=== PATIENT | female | born 1980 | race Caucasian/White ===

== ENCOUNTER → 2016-11-19 | Outpatient (CLI) | payer OTHER ==
[~2016-11-19] MED LIST: ACET500C12 PO; CETI10TA84 PO; MCRK20 PO; METO-551 PO; ONDA4TAB7 SL
--- NOTE | 2016-11-19 12:33 | DIAGNOSTIC IMAGING REPORT ---
HYSTEROSALPINGOGRAM HISTORY: Infertility. FLUOROSCOPY TIME: 0.7 minutes. TECHNIQUE: The cervix was cannulated by the electronic train control technician-packaging materials inspector and water soluble contrast was instilled into the uterus under fluoroscopic guidance. Multiple spot images were obtained. FINDINGS: The uterine cavity is normal in size, shape, and position. The fallopian tubes are patent and there is free peritoneal spill on the right with probable spill on the left.. IMPRESSION: Normal hysterosalpingogram. Electronically signed by: Vicente Gilmore M.D. 11/19/2016 12:31 PM Dictated Date/Time: 11/19/2016 12:31 PM
== END | disposition home or self-care (01) ==
LOC: C.RAD 11:04
PROVIDERS: ATTEND Obstetrics & Gynecology
DX: N97.0 Female infertility associated with anovulation (principal)

== ENCOUNTER 2019-12-30 09:01 | Observation (INO) ==
--- OUTSIDE RECORDS SUMMARY | 2019-12-30 09:03 | External Medical Summary | Continuity of Care Document ---
:1980 Author Name Chaz Blackwell, Provider Address Unavailable Unavailable , Care Team Providers Name Role Phone Unavailable Unavailable Unavailable PCP, NO Unavailable Unavailable Problems Active medical history not documented Allergies and Adverse Reactions Allergy history not documented Medications Medications not documented Procedures Procedures not documented Immunizations Immunizations not documented Plan of Treatment Planned Observations Planned Goals not documented Results No Known Results Results not documented
[2019-12-30] MEDS ORDERED: SODIUM CHLORIDE 0.9% 1000ML 1,000 ML IV ONE (09:24)
[2019-12-30] MEDS ORDERED: ACETAMINOPHEN 1,000 MG/100 ML VIAL IV STA (09:24)
[2019-12-30] MEDS ORDERED: ONDANSETRON INJ 2 MG/ML 2 ML VIAL IV STA (09:24)
--- NOTE | 2019-12-30 09:39 | Emergency Department Note ---
History of Present Illness General Chief Complaint: Kidney Stone Stated Complaint: KIDNEY STONES Source: patient Mode of arrival: ambulatory Limitations: no limitations History of Present Illness Provider Complaint: abdominal pain and flank pain Onset (ago): 1 day(s) Pain Consistency: intermittent Location: RLQ Radiation: R flank Migration to: no migration Severity: moderate Maximum Pain Intensity: 8 Current Pain Intensity: 6 Quality: + sharp Relieved By: + movement Exacerbated By: + nothing Context: + history of similar episodes Associated Symptoms: + nausea and + vomiting; no diarrhea, no fever, no chills, no constipation, no dysuria and no hematuria Treatments prior to arrival: NSAIDs This 39-year-old female patient presents the emergency department today, ambulatory, complaining of right lower quadrant pain radiating to the right flank. Pain began overnight while sleeping. The patient does have history of similar symptoms associated with kidney stones. She states in June, she had a 5 mm stone on the right that she does not believe ever passed. The patient did previously follow with Dr. Alegre, landscape management technician with [facility], but insurance recently changed and she is unable to see [facility] providers any longer. The patient has previously needed all kidney stones surgically removed. The patient describes sharp intermittent pain in the right pelvis. She took 1000 mg of ibuprofen this morning at 7 AM without relief. Pain is positional in nature, but improves with ambulation and some movement and worsens with lying still. Symptoms have been associated with nausea and vomiting. There are no urinary symptoms including hematuria, urinary frequency, urinary hesitancy. No fever, chest pain, dyspnea, or chills. This pain is somewhat different than normal, but it is similar in nature. Related Data Date of Last Menstrual Period: 12/16/19 Home Medications Home Medications Medication Instructions Recorded Confirmed Type acetazolamide 500 mg PO BID 04/29/18 12/30/19 History cetirizine [Zyrtec] 10 mg PO QAM 04/29/18 12/30/19 History metoprolol tartrate [Lopressor] 50 mg PO BID 04/29/18 12/30/19 History potassium chloride [Klor-Con M20] 60 meq PO AMPM 04/29/18 12/30/19 History naproxen 250 mg PO TID #21 tab 07/14/19 12/30/19 Rx tamsulosin [Flomax] 0.4 mg PO DAILY PRN 07/15/19 12/30/19 History ibuprofen 200 mg PO Q6H PRN 12/30/19 12/30/19 History Allergies Allergy/AdvReac Type Severity Reaction Status Date / Time bee venom protein (honey bee) Allergy Severe ANAPHYLAXIS Verified 12/30/19 09:33 A CHILD Past Med/Surg History Medical History Hypokalemia Kidney stone (Chronic) Pseudotumor (Chronic) Surgical History H/O section (Resolved) History of cholecystectomy Social History Preferred Language: Montserrat[place] Feels Safe at Home: Yes Smoking Status: Never smoker Review of Systems A total of 10 systems reviewed and were otherwise negative Physical Exam Vital Signs: Vital Signs - 24 hr 12/30/19 09:04 12/30/19 09:37 12/30/19 10:38 Temperature 36.7 C Temperature Source Oral Pulse Rate 51 L Pulse Rate [Right Finger] 48 L Pulse Rhythm Regular Pulse Strength Normal Respiratory Rate 20 18 Respiratory Effort / Characteristics Non-Labored Sponta neous Non-Labored Sponta neous Respiratory Depth Normal Normal Respiratory Patter n Regular Regular Blood Pressure 153/98 H Blood Pressure [Ri ght Arm] 145/90 H Blood Pressure Vannessa n 116 Blood Pressure Vannessa n [Right Arm] 108 Blood Pressure Pos ition [Right Arm] Lying Pulse Oximetry 94 98 95 Oxygen Delivery Me thod Room Air Room Air Room Air Sepsis Recent Feve r Within 48 Hours No Sepsis Action Take n by Nursing No Action Required Physical Exam: VITALS: Vitals are noted on the nurse's note and reviewed by myself. Patient is hypertensive. No tachycardia or fever. O2 saturation 98%. GENERAL: This is a 39-year-old obese white female, in no acute distress, nond iaphoretic, well-developed well-nourished. SKIN: The skin was without rashes, erythema, edema, or bruising. There is no tenting of the skin. Capillary refill less than 2 seconds. HEAD: Normocephalic atraumatic. EYES: Conjunctivae without injection, sclerae without icterus. NECK: Supple without nuchal rigidity. No lymphadenopathy. No JVD. HEART: Regular rate and rhythm without murmurs gallops or rubs. LUNGS: Clear to auscultation bilaterally without wheezes, rales or rhonchi. No retractions or accessory muscle use. ABDOMEN: Positive bowel sounds x 4. Normal tympanic percussion. Soft, no reproducible tenderness to palpation, without masses or organomegaly. Ratliff sign negative. No guarding or rebound tenderness. No CVA tenderness bilaterally. MUSCULOSKELETAL: No muscle atrophy, erythema, or edema noted. Full range of motion without joint tenderness in all extremities. No tenderness to palpation. Normal gait. Strength 5/5 throughout. NEURO: Patient was alert and oriented to person place and time. No focal neurological deficits. Course Course The patient was seen and evaluated as above. An order was placed for continuous cardiac monitoring. The monitor shows a sinus bradycardia at a rate of 51 bpm. I discussed the case with my attending physician. IV access obtained, labs drawn. Patient medicated with IV fluids, Zofran, and acetaminophen. Imaging performed and reviewed by myself and radiologist as noted. Labs reviewed by myself. I discussed the findings with the patient at bedside. She was reassessed and notes ongoing pain and vomiting. She was medicated with Phenergan and morphine. I discussed the case with Kezia THOMPSON with [facility] neurology. She advised she will speak with Dr. Aldrich to see if the patient may be added onto the surgical schedule today. She will contact me back. Patient was reassessed and is noting improvement in her vomiting and pain. I then discussed the case with DONNA Patterson. She did speak with Dr. Aldrich who recommends either admission to medicine with urology consult or discharge home with symptomatic control and urology follow-up early next week. I discussed these options with patient at bedside. She is starting to feel somewhat better, but does not feel that she will be able to manage her symptoms at home. I discussed case with the customer logistics manager. The patient was reassessed. She is complaining of increased nausea. Patient medicated with repeat dose of IV Phenergan. I discussed the case with Dr. Waldrop, [facility] hospitalist. He did agree to see and evaluate the patient. Please see hospitalist dictation regarding ongoing management care of this patient. Administered Medications Discontinued Medications Sodium Chloride (Nss 1000ml) 1,000 mls @ 999 mls/hr IV .Q1H1M ONE Stop: 12/30/19 10:24 Last Infusion: 12/30/19 11:53 Dose: 0 mls/hr Documented by: [id number] Admin: 12/30/19 09:42 Dose: 999 mls/hr Documented by: [id number] Acetaminophen (Ofirmev) 1,000 mg in 100 mls @ 400 mls/hr IV NOW STA Stop: 12/30/19 09:38 Last Infusion: 12/30/19 10:24 Dose: 0 mls/hr Documented by: [id number] Admin: 12/30/19 09:43 Dose: 400 mls/hr Documented by: [id number] Promethazine HCl (Phenergan) 12.5 mg in 50.5 mls @ 202 mls/hr IV NOW STA Stop: 12/30/19 10:39 Last Infusion: 12/30/19 10:49 Dose: 0 mls/hr Documented by: [id number] Admin: 12/30/19 10:30 Dose: 202 mls/hr Documented by: [id number] Promethazine HCl (Phenergan) 12.5 mg in 50.5 mls @ 202 mls/hr IV NOW STA Stop: 12/30/19 12:01 Last Admin: 12/30/19 11:53 Dose: 202 mls/hr Documented by: [id number] Morphine Sulfate (Morphine Sulfate) 4 mg IV NOW STA Stop: 12/30/19 10:26 Last Admin: 12/30/19 10:30 Dose: 4 mg Documented by: [id number] Ondansetron HCl (Zofran) 4 mg IV NOW STA Stop: 12/30/19 09:25 Last Admin: 12/30/19 09:42 Dose: 4 mg Documented by: [id number] Medical Decision Making Differential Diagnosis + peptic ulcer disease, + biliary pathology, + UTI, + obstruction, + mesenteric ischemia, + aortic pathology, + infections, + inflammatory bowel disease, + renal colic, + ectopic (female), + ovarian torsion (female), + tubo- ovarian abscesses (female), + pelvic inflammatory disease (female), + abdominal pain, + appendicitis, + calculus of kidney, + constipation, + diverticulitis, + endometriosis, + gastroenteritis, + pancreatitis and + small bowel obstruction Medical Records Attestation: I reviewed the patient's medical records. Home Medications Current Medication List: was personally reviewed by me Laboratory Data Attestation: I reviewed the patient's lab results. Mild leukocytosis of 11,000. No anemia or thrombocytopenia. Renal, hepatic function electrolytes without significant abnormality. Urinalysis positive for blood, but no clear evidence of infection. Urine test negative. Result diagrams: 12/30/19 09:40 12/30/19 09:28 Lab Results 12/30/19 12/30/19 12/30/19 Range/Units 09:28 09:40 10:35 WBC 11.95 H (4.8-10.8) K/uL RBC 4.83 (4.2-5.4) M/uL Hgb 15.3 (12.0-16.0) g/dL Hct 45.1 (37-47) % MCV 93.4 (80-100) fL MCH 31.7 (25-34) pg MCHC 33.9 (32-36) g/dL RDW Std Deviation 43.1 (36.4-46.3) fL RDW Coeff of [place] 12.6 (11.5-14.5) % Plt Count 263 (130-400) K/uL MPV 9.8 (7.4-10.4) fL Immature Gran % (Auto) 0.8 % Neut % (Auto) 76.7 % Lymph % (Auto) 13.8 % [place] % (Auto) 7.4 % Eos % (Auto) 1.0 % Baso % (Auto) 0.3 % Immature Gran # (Auto) 0.09 H (0.00-0.02) K/uL Neut # (Auto) 9.17 H (1.4-6.5) K/uL Lymph # (Auto) 1.65 (1.2-3.4) K/uL [place] # (Auto) 0.89 H (0.11-0.59) K/uL Eos # (Auto) 0.12 (0-0.5) K/uL Baso # (Auto) 0.03 (0-0.2) K/uL Sodium 143 (136-145) mmol/L Potassium 3.7 (3.5-5.1) mmol/L Chloride 115 H (98-107) mmol/L Carbon Dioxide 20 L (21-32) mmol/L Anion Gap 8.0 (3-11) BUN 14 (7-18) mg/dl Creatinine 0.80 (0.6-1.2) mg/dl Est Cr Clr Drug Dosing 109.3 ml/min Est GFR ( Amer) 106.9 Est GFR (Non-Af Amer) 92.2 BUN/Creatinine Ratio 17.5 (10-20) Glucose 117 H (70-99) mg/dl Calcium 8.4 L (8.5-10.1) mg/dl Total Bilirubin 0.5 (0.2-1) mg/dl AST 15 (15-37) U/L ALT 23 (12-78) U/L Alkaline Phosphatase 102 (45-117) U/L Total Protein 7.5 (6.4-8.2) gm/dl Albumin 3.7 (3.4-5.0) gm/dl Globulin 3.8 (2.5-4.0) gm/dl Albumin/Globulin Ratio 1.0 (0.9-2) Lipase 205 (73-393) U/L Urine Color Yellow Urine Appearance Turbid A (Clear) Urine pH 8.5 H (4.5-7.5) Ur Specific [place] 1.020 (1.000-1.030) Urine Protein Negative (Negative) Urine Glucose (UA) Negative (Negative) Urine Ketones Negative (Negative) Urine Blood 2+ H (Negative) Urine Nitrite Negative (Negative) Urine Bilirubin Negative (Negative) Urine Urobilinogen Negative (Negative) Ur Leukocyte Esterase Negative (Negative) Urine WBC (Auto) 1-5 (0-5) /hpf Urine RBC (Auto) >30 H (0-4) /hpf U Hyaline Cast (Auto) 5-10 H (0-5) /lpf U Epithel Cells (Auto) >30 H (0-5) /lpf Urine Bacteria (Auto) Negative (Negative) POC Ur Test (NEG) 12/30/19 Range/Units Unknown WBC (4.8-10.8) K/uL RBC (4.2-5.4) M/uL Hgb (12.0-16.0) g/dL Hct (37-47) % MCV (80-100) fL MCH (25-34) pg MCHC (32-36) g/dL RDW Std Deviation (36.4-46.3) fL RDW Coeff of [place] (11.5-14.5) % Plt Count (130-400) K/uL MPV (7.4-10.4) fL Immature Gran % (Auto) % Neut % (Auto) % Lymph % (Auto) % [place] % (Auto) % Eos % (Auto) % Baso % (Auto) % Immature Gran # (Auto) (0.00-0.02) K/uL Neut # (Auto) (1.4-6.5) K/uL Lymph # (Auto) (1.2-3.4) K/uL [place] # (Auto) (0.11-0.59) K/uL Eos # (Auto) (0-0.5) K/uL Baso # (Auto) (0-0.2) K/uL Sodium (136-145) mmol/L Potassium (3.5-5.1) mmol/L Chloride (98-107) mmol/L Carbon Dioxide (21-32) mmol/L Anion Gap (3-11) BUN (7-18) mg/dl Creatinine (0.6-1.2) mg/dl Est Cr Clr Drug Dosing ml/min Est GFR ( Amer) Est GFR (Non-Af Amer) BUN/Creatinine Ratio (10-20) Glucose (70-99) mg/dl Calcium (8.5-10.1) mg/dl Total Bilirubin (0.2-1) mg/dl AST (15-37) U/L ALT (12-78) U/L Alkaline Phosphatase (45-117) U/L Total Protein (6.4-8.2) gm/dl Albumin (3.4-5.0) gm/dl Globulin (2.5-4.0) gm/dl Albumin/Globulin Ratio (0.9-2) Lipase (73-393) U/L Urine Color Urine Appearance (Clear) Urine pH (4.5-7.5) Ur Specific [place] (1.000-1.030) Urine Protein (Negative) Urine Glucose (UA) (Negative) Urine Ketones (Negative) Urine Blood (Negative) Urine Nitrite (Negative) Urine Bilirubin (Negative) Urine Urobilinogen (Negative) Ur Leukocyte Esterase (Negative) Urine WBC (Auto) (0-5) /hpf Urine RBC (Auto) (0-4) /hpf U Hyaline Cast (Auto) (0-5) /lpf U Epithel Cells (Auto) (0-5) /lpf Urine Bacteria (Auto) (Negative) POC Ur Test NEG (NEG) Imaging Data Radiologist's Impression: CT abd pelvis wo con CLINICAL HISTORY: 39 years-old Female presenting with right flank pain, history of stones, no current hematuria. TECHNIQUE: Multidetector CT of the abdomen and pelvis was performed without the use of intravenous contrast. IV contrast: None. One or more dose lowering techniques were used consistent with the principles of ALARA (as low as reasonably achievable), including automatic exposure control, mA or kV adjustment to individual patient size, and/or use of iterative reconstruction. COMPARISON: 07/14/2019. CT DOSE (mGy.cm): The estimated cumulative dose is 1680.68 mGy.cm. FINDINGS: Logistics Lead topogram: Cholecystectomy clips. Lung bases: Normal heart size. No pericardial or pleural effusion. Minimal dependent changes likely atelectasis. Liver: Normal morphology. Normal density. Biliary: No gross biliary ductal dilatation allowing for noncontrast technique. Gallbladder surgically absent. Pancreas: Normal noncontrast appearance. Spleen: Normal noncontrast appearance. Adrenal glands: Normal noncontrast appearance. Kidneys and ureters: Bilateral nephrolithiasis, which are largely punctate. Persistent mild pelvocaliectasis of the right renal collecting system and mild distention of the proximal right ureter to the level of an obstructing 4 mm calculus. Beyond this site the right ureter is nondistended. This appearance is identical to prior exam. Hydronephrosis is presumed given the suspected presence of right renal parenchymal edema. No left hydronephrosis. Left ureter nondi stended. Bladder: Normal noncontrast appearance. Pelvic organs: Normal noncontrast appearance. Bowel: Intramural fat deposition throughout the colon, nonspecific. The appendix is normal. Intramural fat deposition within the distal ileum also noted. Trace hiatal hernia suspected. No bowel obstruction. Peritoneal cavity: No free fluid or intraperitoneal gas. Lymph nodes: No gross lymphadenopathy allowing for noncontrast technique. Vasculature: Normal noncontrast appearance. Abdominal wall: Small fat-containing umbilical hernia. Musculoskeletal: Normal. IMPRESSION: 1. Persistent mild right hydroureteronephrosis with an obstructing 4 mm calculus in the proximal right ureter. Surprisingly, the appearance is identical to prior exam in June. The finding is highly unlikely to represent a phlebolith and is strongly favored to represent a ureteral calculus. This suggests an impacted/fixed renal calculus. Urologic consultation recommended. 2. Bilateral nonobstructing nephrolithiasis. ACT 112: Negative or not required by law. Electronically signed by: Joel Fajardo M.D. 12/30/2019 10:04 AM Blood Pressure Blood Pressure Findings: Elevated blood pressure Blood Pressure Disposition: elevated BP felt to be situational MDM Narrative This 39-year-old female patient presents the emergency department today for evaluation of right flank pain. The patient does have a known ureteral stone in the proximal ureter on the right since June. She developed sudden onset of pain last night. She is afebrile. Denies any symptoms consistent with UTI. Work-up here in the ED consistent with a 4 mm stone in the proximal ureter, identical to prior exam in June, suggesting an impacted or fixed renal calculus. Patient's pain and nausea were somewhat managed with multiple rounds of antiemetics and analgesics. I did speak with urology who do feel that the patient will likely require some sort of intervention. Urology recommendations were that intervention could be completed as an outpatient if the patient is able to manage symptoms. The patient does not feel that she will be able to manage her symptoms as an outpatient, so will be admitted to the hospitalist service with neurology consultation. Please see hospitalist dictation regarding ongoing management care of this patient. The chart was completed utilizing [email or web address] Speech voice recognition software. Grammatical errors, random word insertions, pronoun errors, and incomplete sentences are an occasional consequence of this system due to software limitations, ambient noise, and hardware issues. Any formal questions or concerns about the content, text, or information contained within the body of this dictation should be directly addressed to the provider for clarification. Impression & Plan Calculus of proximal right ureter, Intractable back pain, Intractable nausea and vomiting Discharge Plan Visit Data Chief Complaint: Kidney Stone Stated Complaint: KIDNEY STONES ED Provider: Rui Victor. ED Midlevel Provider: Chelly Garcia Discharge Problem: Calculus of proximal right ureter, Intractable back pain, Intractable nausea and vomiting Patient Disposition: Admitted As Inpatient Condition: Good Forms Stand Alone Forms: My Te[employer] Prescriptions Prescriptions: No Action cetirizine [Zyrtec] 10 mg Tablet 10 mg PO QAM RF: 0 acetazolamide 500 mg Capsule, Extended Release 500 mg PO BID RF: 0 potassium chloride [Klor-Con M20] 20 mEq Tablet,Er Particles/Crystals 60 meq PO AMPM RF: 0 metoprolol tartrate [Lopressor] 50 mg Tablet 50 mg PO BID RF: 0 ibuprofen 200 mg Tablet 200 mg PO Q6H PRN (Reason: Pain) RF: 0 naproxen 250 mg tablet 250 mg PO TID Qty: 21 RF: 0 tamsulosin [Flomax] 0.4 mg Capsule 0.4 mg PO DAILY PRN (Reason: kidney stones) RF: 0 Referrals Referrals: Fernanda Hill DO [Primary Care Provider] -
[2019-12-30 09:48] LABS: Basophils # (auto) 0.03 K/uL (0-0.2); Basophils % (auto) 0.3 %; Eosinophils # (auto) 0.12 K/uL (0-0.5); Hematocrit (blood only) 45.1 % (37-47); Hemoglobin 15.3 g/dL (12.0-16.0); Immature Granulocytes # (auto) 0.09 K/uL (0.00-0.02); Immature Granulocytes % (auto) 0.8 %; Lymphocytes # (auto) 1.65 K/uL (1.2-3.4); Lymphocytes % (auto) 13.8 %; Mean Corpuscular Hemoglobin 31.7 pg (25-34); Mean Corpuscular Hgb Conc 33.9 g/dL (32-36); Mean Corpuscular Volume 93.4 fL (80-100); Mean Platelet Volume 9.8 fL (7.4-10.4); Monocytes # (auto) 0.89 K/uL (0.11-0.59); Monocytes % (auto) 7.4 %; Neutrophils # (auto) 9.17 K/uL (1.4-6.5); Neutrophils % (auto) 76.7 %; Platelet Count 263 K/uL (130-400); RDW Coefficient of Variation 12.6 % (11.5-14.5); RDW Standard Deviation 43.1 fL (36.4-46.3); Red Blood Count 4.83 M/uL (4.2-5.4); White Blood Count 11.95 K/uL (4.8-10.8)
[2019-12-30 10:05] LABS: Albumin Level 3.7 gm/dl (3.4-5.0); BUN Creatinine Ratio 17.5 (10-20); Calcium 8.4 mg/dl (8.5-10.1); Creatinine Clr Calc Pharmacy 109.3 ml/min; Est GFR (African American) 106.9; Est GFR (Non-African American) 92.2; Potassium 3.7 mmol/L (3.5-5.1)
--- NOTE | 2019-12-30 10:05 | CT Scan Report ---
CT abd pelvis wo con CLINICAL HISTORY: 39 years-old Female presenting with right flank pain, history of stones, no current hematuria. TECHNIQUE: Multidetector CT of the abdomen and pelvis was performed without the use of intravenous co ntrast. IV contrast: None. One or more dose lowering techniques were used consistent with the princip les of ALARA (as low as reasonably achievable), including automatic exposure control, mA or kV adjust ment to individual patient size, and/or use of iterative reconstruction. COMPARISON: 07/14/2019. CT DOSE (mGy.cm): The estimated cumulative dose is 1680.68 mGy.cm. FINDINGS: Scaffold Worker topogram: Cholecystectomy clips. Lung bases: Normal heart size. No pericardial or pleural effusion. Minimal dependent changes likely a telectasis. Liver: Normal morphology. Normal density. Biliary: No gross biliary ductal dilatation allowing for noncontrast technique. Gallbladder surgicall y absent. Pancreas: Normal noncontrast appearance. Spleen: Normal noncontrast appearance. Adrenal glands: Normal noncontrast appearance. Kidneys and ureters: Bilateral nephrolithiasis, which are largely punctate. Persistent mild pelvocali ectasis of the right renal collecting system and mild distention of the proximal right ureter to the level of an obstructing 4 mm calculus. Beyond this site the right ureter is nondistended. This appear ance is identical to prior exam. Hydronephrosis is presumed given the suspected presence of right jeane al parenchymal edema. No left hydronephrosis. Left ureter nondistended. Bladder: Normal noncontrast appearance. Pelvic organs: Normal noncontrast appearance. Bowel: Intramural fat deposition throughout the colon, nonspecific. The appendix is normal. Intramura l fat deposition within the distal ileum also noted. Trace hiatal hernia suspected. No bowel obstruct ion. Peritoneal cavity: No free fluid or intraperitoneal gas. Lymph nodes: No gross lymphadenopathy allowing for noncontrast technique. Vasculature: Normal noncontrast appearance. Abdominal wall: Small fat-containing umbilical hernia. Musculoskeletal: Normal. IMPRESSION: 1. Persistent mild right hydroureteronephrosis with an obstructing 4 mm calculus in the proximal rig ht ureter. Surprisingly, the appearance is identical to prior exam in June. The finding is highly unlikely to represent a phlebolith and is strongly favored to represent a ureteral calculus. This jose ggests an impacted/fixed renal calculus. Urologic consultation recommended. 2. Bilateral nonobstructing nephrolithiasis. ACT 112: Negative or not required by law. Electronically signed by: Joel Fajardo M.D. 12/30/2019 10:04 AM
[2019-12-30 10:08] LABS: Bilirubin,Total 0.5 mg/dl (0.2-1); Globulin 3.8 gm/dl (2.5-4.0); Total Protein 7.5 gm/dl (6.4-8.2)
[2019-12-30] MEDS ORDERED: PROMETHAZINE 12.5 MG/50.5 ML BAG IV STA ×2 (10:25→11:47)
[2019-12-30] MEDS ORDERED: MoRPHine SULFATE 4 MG/ML 1 ML CARP\\VIAL IV STA (10:25)
[2019-12-30 10:49] LABS: Appearance Urine Turbid (Clear); Bacteria Urine Automated Negative (Negative); Bilirubin Urine Negative (Negative); Blood Urine 2+ (Negative); Color Urine Yellow; Epithelial Cell Urine Auto >30 /lpf (0-5); Glucose Urine UA Negative (Negative); Ketones Urine Negative (Negative); Leukocyte Esterase Urine Negative (Negative); Nitrite Urine Negative (Negative); Protein Urine Negative (Negative); RBC Urine Automated >30 /hpf (0-4); Urobilinogen Urine Negative (Negative); pH Urine 8.5 (4.5-7.5)
--- NOTE | 2019-12-30 11:51 | History & Physical Report ---
Date of Service December 30, 2019 Assessment & Plan (1) Calculus of proximal right ureter: 4mm stone on right. Proximal. With resulting hydronephrosis. u/a not highly suggestive of UTI. Copious emesis in ER prior to admission. Will admit for pain control and symptomatic relief of emesis. Hydrate with NS at 150cc/hr. Flomax 0.4mg daily. Strain all urine. Dilaudid and phenergan prn. I spoke with Dr Aldrich from [facility] who will see in consult. Keep NPO given the vomiting and potential need for intervention. Repeat cbc, bmp in am. (2) Intractable back pain: right-sided, 2nd to 4mm kidney stone - see above. (3) Intractable nausea and vomitinnd to obstructing kidney stone. phenergan prn. (4) Pseudotumor: Pseudotumor cerebri - long-standing diagnosis. Cont diamox 500mg BID as previous. (5) Essential (primary) hypertension: BP mildly elevated likely due to pain. HR low due to beta noemy. No symptoms from sinus bradycardia however. If bradycardia persists consider reduction in metoprolol dose. Cont metoprolol. (6) Morbid obesity with BMI of 40.0-44.9, adult: BMI 44.4 (7) DVT prophylaxis: SCDs and ambulation avoid chemical means in light of potential for needing urological intervention place on observation status of note - urine HCG was negative History of Present Illness Chief Complaint: right sided back pain, emesis Primary Care Provider: Fernanda Hill, 39yo female with history of past kidney stones (2013 required intervention w/ stenting) along with pseudotumor cerebri who presents with acute right-sided back pain that woke her from sleep last pm. The pain intensified through the night and prevented her from sleeping well. She would feel occasional radiating pain to the right side of her abdomen. No fevers, no chills, no dysuria, no hematuria. 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 She therefore came to ER. En route had additional episodes of vomiting and had emesis in the ER as well. CT abd/pelvis today shows a proximal 4mm obstructing ureteral stone. She notes that with her prior ureteral stent she "didn't do well with it". The stent had to be removed prematurely because of what sounds like significant stent pain and prolific vomiting. Allergies Allergy/AdvReac Type Severity Reaction Status Date / Time bee venom protein (honey bee) Allergy Severe ANAPHYLAXIS Verified 12/30/19 09:33 A CHILD Home Medications Home Medications Medication Instructions Recorded Confirmed Type acetazolamide 500 mg PO BID 04/29/18 12/30/19 History cetirizine [Zyrtec] 10 mg PO QAM 04/29/18 12/30/19 History metoprolol tartrate [Lopressor] 50 mg PO BID 04/29/18 12/30/19 History potassium chloride [Klor-Con M20] 60 meq PO AMPM 04/29/18 12/30/19 History naproxen 250 mg PO TID #21 tab 07/14/19 12/30/19 Rx tamsulosin [Flomax] 0.4 mg PO DAILY PRN 07/15/19 12/30/19 History ibuprofen 200 mg PO Q6H PRN 12/30/19 12/30/19 History Past Med/Surg History Medical History (Updated 12/30/19 @ 13:03 by Greg Waldrop) Essential (primary) hypertension Hypokalemia Kidney stone (Chronic) Pseudotumor (Chronic) Surgical History (Updated 12/30/19 @ 12:30 by Greg Waldrop) H/O section (Resolved) History of cholecystectomy S/P ureteral stent placement Family History (Updated 12/30/19 @ 12:32 by Greg Waldrop) Mother Lung cancer age 42 Father Parkinson disease Denies family history of Kidney stone Social History (Updated 12/30/19 @ 12:33 by Greg Waldrop) Preferred Language: Faroese Communication Ability: Effective Packaging Manager Required: No Beliefs That Will Affect Care: None marital status: Current Living Situation: Family current occupational status: employed 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[employer] [facility] Other Information That Helps Us Care for You: No other: 1 son - age 12 Feels Safe at Home: Yes Safety Concerns: Feels Safe At This Time Smoking Status: Former smoker Age Quit Using Tobacco: 26 ; packs per day: 1 ; Years Smoked: 10 ; Do You Dip or Chew Tobacco: No ; Smoking End Date: 07/17/2008 ; Second Hand Exposure: No ; Tobacco Cessation Education Requested by Patient: No Hx Alcohol Use: No Hx Substance Use: No Review of Systems Constitutional: no fever, no chills, no fatigue and no anorexia Eyes: no worsening vision Ear, Nose, Mouth, Throat: no nasal congestion and no sore throat Respiratory: no cough and no dyspnea Cardiovascular: no chest pain Gastrointestinal: + abdominal pain, + nausea and + vomiting; no diarrhea/loose stools Genitourinary: + flank pain (right); no dysuria and no hematuria Musculoskeletal: as per Subjective / HPI and + back pain Integumentary: no rash Neurologic: no paresthesia Psychiatric: no depression Endocrine: no diabetes Hematologic / Lymphatic: no easy bruising Physical Exam Constitutional: + morbidly obese; no acute distress and no altered mental status Eyes: + anicteric sclerae and PERRL ENMT: external ear and nose normal, oropharynx normal Neck: trachea midline, no thyromegaly Respiratory: normal respiratory effort, lungs clear to auscultation Auscultation: + diminished lung sounds (bases) Cardiovascular: Rate/Rhythm: regular rhythm and + bradycardic Heart Sounds: normal S1 and normal S2; no murmur Vessels: posterior tibial pulses present and dorsalis pedis pulses present; no JVD Extremities: no edema Gastrointestinal (Abdomen): normal bowel sounds, soft, nontender, no hepatosplenomegaly Musculoskeletal: right flank pain to palpation Skin: no rashes, warm and dry Neurologic: deep tendon reflexes 2+ bilaterally and moves all extremities; no focal motor deficits Psychiatric: A+Ox3, euthymic affect Lymphatic: no cervical lymphadenopathy Results & Data Results & Data ([facility]) Vital Signs (Past 12 Hours) Vital Signs Temp Pulse Pulse Resp BP BP Pulse Ox 12/30/19 10:38 48 L 18 145/90 H 95 12/30/19 09:37 98 12/30/19 09:04 36.7 C 51 L 20 153/98 H 94 Laboratory Results Laboratory Results - last 24 hr 12/30/19 12/30/19 12/30/19 09:28 09:40 10:35 WBC 11.95 H RBC 4.83 Hgb 15.3 Hct 45.1 MCV 93.4 MCH 31.7 MCHC 33.9 RDW Std Deviation 43.1 RDW Coeff of [place] 12.6 Plt Count 263 MPV 9.8 Immature Gran % (Auto) 0.8 Neut % (Auto) 76.7 Lymph % (Auto) 13.8 [place] % (Auto) 7.4 Eos % (Auto) 1.0 Baso % (Auto) 0.3 Immature Gran # (Auto) 0.09 H Neut # (Auto) 9.17 H Lymph # (Auto) 1.65 [place] # (Auto) 0.89 H Eos # (Auto) 0.12 Baso # (Auto) 0.03 Sodium 143 Potassium 3.7 Chloride 115 H Carbon Dioxide 20 L Anion Gap 8.0 BUN 14 Creatinine 0.80 Est Cr Clr Drug Dosing 109.3 Est GFR ( Amer) 106.9 Est GFR (Non-Af Amer) 92.2 BUN/Creatinine Ratio 17.5 Glucose 117 H Calcium 8.4 L Total Bilirubin 0.5 AST 15 ALT 23 Alkaline Phosphatase 102 Total Protein 7.5 Albumin 3.7 Globulin 3.8 Albumin/Globulin Ratio 1.0 Lipase 205 Urine Color Yellow Urine Appearance Turbid A Urine pH 8.5 H Ur Specific [place] 1.020 Urine Protein Negative Urine Glucose (UA) Negative Urine Ketones Negative Urine Blood 2+ H Urine Nitrite Negative Urine Bilirubin Negative Urine Urobilinogen Negative Ur Leukocyte Esterase Negative Urine WBC (Auto) 1-5 Urine RBC (Auto) >30 H U Hyaline Cast (Auto) 5-10 H U Epithel Cells (Auto) >30 H Urine Bacteria (Auto) Negative POC Ur Test 12/30/19 Unknown WBC RBC Hgb Hct MCV MCH MCHC RDW Std Deviation RDW Coeff of [place] Plt Count MPV Immature Gran % (Auto) Neut % (Auto) Lymph % (Auto) [place] % (Auto) Eos % (Auto) Baso % (Auto) Immature Gran # (Auto) Neut # (Auto) Lymph # (Auto) [place] # (Auto) Eos # (Auto) Baso # (Auto) Sodium Potassium Chloride Carbon Dioxide Anion Gap BUN Creatinine Est Cr Clr Drug Dosing Est GFR ( Amer) Est GFR (Non-Af Amer) BUN/Creatinine Ratio Glucose Calcium Total Bilirubin AST ALT Alkaline Phosphatase Total Protein Albumin Globulin Albumin/Globulin Ratio Lipase Urine Color Urine Appearance Urine pH Ur Specific [place] Urine Protein Urine Glucose (UA) Urine Ketones Urine Blood Urine Nitrite Urine Bilirubin Urine Urobilinogen Ur Leukocyte Esterase Urine WBC (Auto) Urine RBC (Auto) U Hyaline Cast (Auto) U Epithel Cells (Auto) Urine Bacteria (Auto) POC Ur Test NEG Diagnostic Findings CT abd/pelvis - IMPRESSION: 1. Persistent mild right hydroureteronephrosis with an obstructing 4 mm calculus in the proximal right ureter. Surprisingly, the appearance is identical to prior exam in June. The finding is highly unlikely to represent a phlebolith and is strongly favored to represent a ureteral calculus. This suggests an impacted/fixed renal calculus. Urologic consultation recommended. 2. Bilateral nonobstructing nephrolithiasis Code Status & VTE Plan Code Status full VTE Prophylaxis Plan VTE Prophylaxis will be ordered: Yes PG Care Time/CCT Total # of Minutes Spent Total Time Spent with Patient: Total time spent is greater than 50% in coordination of care (as documented) at patient's floor/unit and/or counseling patient: Coding Level of Care Code 20743 OBS Care - Level 2 Diagnoses Calculus of proximal right ureter N20.1 Intractable back pain M54.9 Intractable nausea and vomiting R11.2 Pseudotumor Essential (primary) hypertension I10 Morbid obesity with BMI of 40.0-44.9, adult E66.01; Z68.41 DVT prophylaxis Z29.9
[2019-12-30] MEDS: TAMSULOSIN HCL 0.4 MG CAP PO SCH (12:30)
[2019-12-30] MEDS ORDERED: ACETAMINOPHEN 325 MG TAB PO PRN (13:57)
[2019-12-30] MEDS ORDERED: HYDROmorphone INJ 0.5 MG/0.5 ML SYR IV PRN (13:57)
[2019-12-30] MEDS ORDERED: PROMETHAZINE HCL 12.5 MG in SODIUM CHLORIDE 0.9% 50 ML IV PRN (13:57)
[2019-12-30] MEDS: SODIUM CHLORIDE 0.9% 1000ML 1,000 ML IV SCH ×2 (13:59→20:34)
[2019-12-30] MEDS: POTASSIUM CHLORIDE 20 MEQ TABCR PO SCH ×2 (15:47→20:34)
--- NOTE | 2019-12-30 16:56 | XRay Report ---
XR KUB/Abdomen 1 view CLINICAL HISTORY: Ureteral calculus COMPARISON STUDY: CT scan dated 12/30/2019 FINDINGS: There is a nonobstructive bowel gas pattern. There are surgical clips within the right uppe r quadrant consistent with a prior cholecystectomy. Bilateral renal calculi described in the prior CT scan are not visible on conventional radiographic imaging. The obstructing proximal right ureteral c alculus described on the prior CT scan is also not visualized. IMPRESSION: 1. Nonobstructive bowel gas pattern 2. No urinary tract calculi are visualized on conventional radiographic imaging ACT 112: Negative or not required by law. Electronically signed by: Mario Snowden M.D. 12/30/2019 4:55 PM
[2019-12-30] MEDS: METOPROLOL TARTRATE 50 MG TAB PO SCH (20:34)
[2019-12-30] MEDS: acetaZOLAMIDE 500 MG CAPCR PO SCH (20:34)
--- NOTE | 2019-12-30 20:56 | Communication Note ---
Date of Service: December 30, 2019 Shortly after patient arrived to the floor earlier today I received a call from nursing staff that while straining the pt's urine it appeared to contain a k idney stone. This was sent for stone analysis. Later in the day I obtained a KUB x-ray and the right-sided stone could not be seen. However, the patient continued to have right sided back pain -- "like a bruise" - even despite potentially passing a stone fragment or the entire stone. I recommended she remain hospitalized because of the ongoing pain. I will repeat a KUB x-ray in the am and make her npo after MN tonight in the event she has continued colic & there is concern for an ongoing obstructing stone. Patient agreeable to this plan. Greg Waldrop MD
[2019-12-31] MEDS: SODIUM CHLORIDE 0.9% 1000ML 1,000 ML IV SCH ×2 (02:21→08:44)
[2019-12-31 06:45] LABS: Hematocrit (blood only) 41.7 % (37-47); Hemoglobin 13.9 g/dL (12.0-16.0); Mean Corpuscular Hgb Conc 33.3 g/dL (32-36); Mean Corpuscular Volume 96.1 fL (80-100); Mean Platelet Volume 9.7 fL (7.4-10.4); Platelet Count 221 K/uL (130-400); RDW Coefficient of Variation 12.9 % (11.5-14.5); RDW Standard Deviation 45.3 fL (36.4-46.3); Red Blood Count 4.34 M/uL (4.2-5.4); White Blood Count 9.94 K/uL (4.8-10.8)
[2019-12-31 07:37] LABS: BUN Creatinine Ratio 16.4 (10-20); Calcium 8.3 mg/dl (8.5-10.1); Creatinine Clr Calc Pharmacy 132.5 ml/min; Est GFR (African American) 128.1; Est GFR (Non-African American) 110.5; Potassium 4.3 mmol/L (3.5-5.1)
--- NOTE | 2019-12-31 07:57 | XRay Report ---
XR KUB/Abdomen 1 view CLINICAL HISTORY: 39 years-old Female presenting with right flank pain, right 4 mm kidney stone. TECHNIQUE: Single supine view of the abdomen was obtained. COMPARISON: 12/30/2019. FINDINGS: Cholecystectomy clips noted. Nonobstructive bowel gas pattern. No gross pneumoperitoneum. The obstructing proximal right ureteral calculus is not visualized by radiograph. Additionally, the p unctate bilateral nephrolithiasis is also not appreciated by radiograph. Osseous structures normal. IMPRESSION: 1. Renal and ureteral calculi not depicted by radiograph possibly due to body habitus. Renal ultraso und would be a better modality for follow-up to assess for resolved hydronephrosis. Given the chronic ity of the impacted proximal right ureteral calculus, mechanical clearance may be necessary. ACT 112: Negative or not required by law. Electronically signed by: Joel Fajardo M.D. 12/31/2019 7:56 AM
[2019-12-31] MEDS: acetaZOLAMIDE 500 MG CAPCR PO SCH (08:43)
[2019-12-31] MEDS: TAMSULOSIN HCL 0.4 MG CAP PO SCH (08:43)
[2019-12-31] MEDS: POTASSIUM CHLORIDE 20 MEQ TABCR PO SCH (08:44)
[2019-12-31] MEDS: METOPROLOL TARTRATE 50 MG TAB PO SCH (08:45)
[2019-12-31] MEDS ORDERED: CETIRIZINE HCL 10 MG TABLET PO SCH (09:00)
--- NOTE | 2019-12-31 10:33 | Urology Consultation ---
Date of Consultation December 31, 2019 Assessment & Plan (1) Calculus of proximal right ureter: Discussed at length with patient. May have small proximal stone impacted in ureter vs stricture vs other issue. Improved pain. Hydrating. NPO but going to start diet. No N/v. Pain controlled. Previous stones. Discussed option. Plan to continue with conservative care and will hydrate and monitor. Should be able to set up for diagnostic ureteroscopy at some point to assess ureter. Small stone fragment passed yesterday. May be stone, fragment of stone, or different stone. Will continue to monitor. Follow up as outpatient. History of Present Illness Attending Physician: Sterling Conley, DO History of Present Illness New consultation for patient with stone, discomfort, obstruction, and ill feelings. Patient developed sudden onset of pain into flank going down and radiating into groin and back in waves comes and goes. Can be severe at times. Discussed and reviewed patient's family history for any history of stone disease. Also, discussed patient's medical surgery history especially related to any history of urinary issues or stone disease. Patient was admitted and is undergoing observation. Passed small fragment yesterday. No pain since. Patient has history of stones. Had a stone in June but appears to be impacted in ureter. NO severe issues or bleeding since passed fragment. Allergies Allergy/AdvReac Type Severity Reaction Status Date / Time bee venom protein (honey bee) Allergy Severe ANAPHYLAXIS Verified 12/30/19 09:33 A CHILD Home Medications Home Medications Medication Instructions Recorded Confirmed Type acetazolamide 500 mg PO BID 04/29/18 12/30/19 History cetirizine [Zyrtec] 10 mg PO QAM 04/29/18 12/30/19 History metoprolol tartrate [Lopressor] 50 mg PO BID 04/29/18 12/30/19 History potassium chloride [Klor-Con M20] 60 meq PO AMPM 04/29/18 12/30/19 History naproxen 250 mg PO TID #21 tab 07/14/19 12/30/19 Rx tamsulosin [Flomax] 0.4 mg PO DAILY PRN 07/15/19 12/30/19 History ibuprofen 200 mg PO Q6H PRN 12/30/19 12/30/19 History ondansetron 4 mg PO Q6H PRN #20 tab 12/31/19 Rx oxycodone 5 mg PO Q8H PRN #10 tab 12/31/19 Rx Patient History Medical History Essential (primary) hypertension Hypokalemia Kidney stone (Chronic) Pseudotumor (Chronic) Surgical History H/O section (Resolved) History of cholecystectomy S/P ureteral stent placement Family History Mother Lung cancer age 42 Father Parkinson disease Denies family history of Kidney stone Social History Preferred Language: Nepali Communication Ability: Effective Show Host Or Hostess Required: No Beliefs That Will Affect Care: None marital status: Current Living Situation: Family current occupational status: employed 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[employer] [facility] Other Information That Helps Us Care for You: No other: 1 son - age 12 Feels Safe at Home: Yes Safety Concerns: Feels Safe At This Time Smoking Status: Former smoker Age Quit Using Tobacco: 26 ; packs per day: 1 ; Years Smoked: 10 ; Do You Dip or Chew Tobacco: No ; Smoking End Date: 07/17/2008 ; Second Hand Exposure: No ; Tobacco Cessation Education Requested by Patient: No Hx Alcohol Use: No Hx Substance Use: No Review of Systems Review of Systems: All systems reviewed & are unremarkable except as noted in HPI & below Physical Exam Physical Exam: General: Alert and oriented x 3 in no acute distress. Patient is well nourished and well kept. HEENT: Normocephalic Atraumatic. Inspection normal. Cranial Nerves 2-12 Grossly intact. Nares are clear. Neck is supple. Normal inspection of face. Normal inspection of neck. Neurologic: No deficits on inspection. Baseline for motor function and sensory. Psychologic: Normal affect. Respiratory: Nonlabored. No use of accessory muscles. No tachypnea or dyspnea. Cardiovascular: No tachycardia Skin: [place] and Dry. No rashes or visible lesions. Extremities: Moving without issues. No motor deficits on inspection Lymphatics: No edema Abdomen: Soft Non-distended. No acites. No rebound or guarding. Obese. Results & Data Vital Signs (Past 12 Hours) Vital Signs Temp Pulse Resp BP Pulse Ox 12/31/19 07:49 36.6 C 57 L 18 111/64 97 12/30/19 23:19 36.6 C 60 22 123/71 96 PG Care Time/CCT Total # of Minutes Spent Total Time Spent with Patient: Total time spent is greater than 50% in coordination of care (as documented) at patient's floor/unit and/or counseling patient: Coding Level of Care Code 62008 Inpt Consult Level 5 Diagnoses Calculus of proximal right ureter N20.1
--- NOTE | 2019-12-31 10:41 | Discharge Summary ---
Date of Service December 31, 2019 Admission HPI Per Admitting Provider 39yo female with history of past kidney stones (2013 required intervention w/ stenting) along with pseudotumor cerebri who presents with acute right-sided back pain that woke her from sleep last pm. The pain intensified through the night and prevented her from sleeping well. She would feel occasional radiating pain to the right side of her abdomen. No fevers, no chills, no dysuria, no hematuria. 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 She therefore came to ER. En route had additional episodes of vomiting and had emesis in the ER as well. CT abd/pelvis today shows a proximal 4mm obstructing ureteral stone. She notes that with her prior ureteral stent she "didn't do well with it". The stent had to be removed prematurely because of what sounds like significant stent pain and prolific vomiting. Principal Diagnosis Proximal right urteral stone Discharge Exam Constitutional well developed and + overweight; no acute distress Eyes PERRL, conjunctivae normal, anicteric sclerae ENMT external ear and nose normal, oropharynx normal Neck trachea midline, no thyromegaly Respiratory normal respiratory effort, lungs clear to auscultation Cardiovascular RRR, no murmur, no edema Gastrointestinal (Abdomen) normal bowel sounds, soft, nontender, no hepatosplenomegaly Musculoskeletal no cyanosis or clubbing, extremities motor strength 5/5 Skin no rashes, warm and dry Neurologic patellar DTR's 2+ bilat, sensation intact and PERRL, EOMI, accommodation nl, no face palsy, no dysarthria Psychiatric A+Ox3, euthymic affect Lymphatic no cervical or axillary lymphadenopathy Discharge Data Allergies Allergy/AdvReac Type Severity Reaction Status Date / Time bee venom protein (honey bee) Allergy Severe ANAPHYLAXIS Verified 12/30/19 09:33 A CHILD Consultations 12/30/19 11:51 ED Decision to Admit Stat 12/30/19 13:57 Consult Urology Routine Ordered Studies 12/30/19 09:24 CT abd pelvis wo con Stat Hospital Course (1) Calculus of proximal right ureter: 4mm stone on right. Proximal. With resulting hydronephrosis. u/a not highly suggestive of UTI. Copious emesis in ER prior to admission. passed a small fragment yesterday, likely not the full stone pain is minimal today, patient motivated to go home renal function stable, making copious amounts of clear urine d/w Dr. Sena, will d/c to home with plans for cystoscopy in the coming weeks will prescribe her Zofran ODT and Oxycodone to use at home in case the pain returns she can use Flomax for the next 1-2 weeks until cystoscopy instructed to contact urology if symptoms return and cannot be managed at home (2) Intractable back pain: right-sided, 2nd to 4mm kidney stone - see above. pain gone at the time of discharge (3) Intractable nausea and vomitinnd to obstructing kidney stone. phenergan prn. no nausea this morning, tolerating diet (4) Pseudotumor: Pseudotumor cerebri - long-standing diagnosis. Cont diamox 500mg BID as previous. (5) Essential (primary) hypertension: BP mildly elevated likely due to pain. HR low due to beta noemy. No symptoms from sinus bradycardia however. Cont metoprolol. (6) Morbid obesity with BMI of 40.0-44.9, adult: BMI 44.4 (7) DVT prophylaxis: SCDs and ambulation avoid chemical means in light of potential for needing urological intervention place on observation status of note - urine HCG was negative Total Time Total Time Spent Total Time Spent (In Minutes): 33 minutes Total Time Includes: Examination of the Patient, Discharge Planning, Medication Reconciliation and Communication With Other Providers (discussed with Dr. Aldrich) Discharge Plan Discharge Items Patient Disposition: Home - Self-Care Reason For Visit: OBSTRUCTING RT SIDED KIDNEY STONE Discharge Diagnosis: Right ureteral stone Condition on Discharge: Good Goals: stay well hydrated follow up with urology for cystoscopy in a few weeks Activity: Resume your previous activity Non-emergency contact: Primary Care Provider and Urologist Call non-emergency contact if: you have any medication questions, your symptoms worsen, your pain is not controlled and you have a fever Follow-up/Referrals: Haider Aldrich DO [Physician] - (2-3 weeks, needs cystoscopy) Fernanda Hill DO [Primary Care Provider] - Diet: Low Sodium (2gm) Addtl Attending Provider Instructions: Medications: - OXYCODONE: small prescription provided in case you have severe flank pain again - ONDANSETRON: dissolving tablets, take as needed for any nausea associated with the pain Right sided proximal ureteral stone, likely small fragment passed can go home since pain is resolved stay well hydrated, drinking mostly water, at least 2 liters a day, keep urine clear use the Flomax daily the next 1-2 weeks gave you a prescription for Oxycodone and ondansetron in case the pain returns, give you the chance to manage at home take the ondansetron to prevent/control nausea and the oxycodone for pain relief call Dr. Aldrich office if you experience similar pain prior to the scheduled cystoscopy also, his office should be in contact Thursday to set up outpatient cystoscopy in the coming weeks, if you do not hear from them Thursday then call them Thursday Pending Studies at Discharge: Yes Studies:: stone analysis Stand-Alone Forms: My [facility] Spotzer, Smoking Cessation Medications and DC Order Prescriptions: New ondansetron 4 mg tablet,disintegrating 4 mg PO Q6H PRN (Reason: nausea and vomiting) Qty: 20 RF: 0 oxycodone 5 mg tablet 5 mg PO Q8H PRN (Reason: pain) Qty: 10 RF: 0 Continued cetirizine [Zyrtec] 10 mg Tablet 10 mg PO QAM RF: 0 acetazolamide 500 mg Capsule, Extended Release 500 mg PO BID RF: 0 potassium chloride [Klor-Con M20] 20 mEq Tablet,Er Particles/Crystals 60 meq PO AMPM RF: 0 metoprolol tartrate [Lopressor] 50 mg Tablet 50 mg PO BID RF: 0 ibuprofen 200 mg Tablet 200 mg PO Q6H PRN (Reason: Pain) RF: 0 naproxen 250 mg tablet 250 mg PO TID Qty: 21 RF: 0 tamsulosin [Flomax] 0.4 mg Capsule 0.4 mg PO DAILY PRN (Reason: kidney stones) RF: 0 Discharge Orders: Discharge Order (Routine); Ordered 12/31/19 Ordered By: Sterling Conley Admission Data Admit Date/Time: 12/30/19 12:20 Attending Provider: Sterling Conley Admit Provider: Greg Waldrop Primary Care Provider: Fernanda Hill Other Providers: Greg Waldrop ; Haider Aldrich Coding Level of Care Code 28978 OBS Care - Discharge Diagnoses Calculus of proximal right ureter N20.1 Intractable back pain M54.9 Intractable nausea and vomiting R11.2 Pseudotumor Essential (primary) hypertension I10 Morbid obesity with BMI of 40.0-44.9, adult E66.01; Z68.41 DVT prophylaxis Z29.9
[2020-01-04 23:25] LABS: Calculus Nidus Not Observed; Component 2 DNR; Source KIDNEY
== END 2019-12-31 11:10 | disposition home or self-care (01) ==
LOC: ED 09:01 → 3E 09:01 → SUATTDRO 12:20 → 3E 13:47

== ENCOUNTER 2022-08-18 16:47 | Inpatient (IN) ==
[2022-08-18] MEDS ORDERED: SODIUM CHLORIDE 0.9% 500 ML IV STA (17:00)
[2022-08-18] MEDS ORDERED: ONDANSETRON INJ 2 MG/ML 2 ML VIAL IV STA (17:00)
[2022-08-18 17:15] LABS: Basophils # (auto) 0.05 K/uL (0-0.2); Basophils % (auto) 0.3 %; Eosinophils # (auto) 0.01 K/uL (0-0.50); Eosinophils % (auto) 0.1 %; Hematocrit (blood only) 44.9 % (34.1-44.9); Hemoglobin 16.1 g/dl (12.0-16.0); Immature Granulocytes # (auto) 0.11 K/uL (0.00-0.02); Immature Granulocytes % (auto) 0.6 %; Lymphocytes # (auto) 1.08 K/uL (1.2-3.4); Lymphocytes % (auto) 6.3 %; Mean Corpuscular Hemoglobin 31.8 pg (25.0-34.0); Mean Corpuscular Hgb Conc 35.9 g/dL (32.0-36.0); Mean Corpuscular Volume 88.6 fL (80.0-100.0); Mean Platelet Volume 9.3 fL (9.4-12.3); Monocytes # (auto) 0.61 K/uL (0.24-0.82); Monocytes % (auto) 3.5 %; Neutrophils # (auto) 15.33 K/uL (1.4-6.5); Neutrophils % (auto) 89.2 %; Platelet Count 269 K/uL (130-400); RDW Coefficient of Variation 12.2 % (11.5-14.5); RDW Standard Deviation 39.4 fL (36.4-46.3); Red Blood Count 5.07 M/uL (3.93-5.22); White Blood Count 17.19 K/ul (4.8-10.8)
[2022-08-18] MEDS ORDERED: SODIUM CHLORIDE 0.9% 1000ML 500 ML IV ONE (17:29)
[2022-08-18] MEDS ORDERED: KETOROLAC TROMETHAMINE 15 MG/ML VIAL IV STA (17:29)
[2022-08-18 17:33] LABS: Albumin Globulin Ratio 1.4 (0.9-2); Albumin Level 4.6 gm/dl (3.4-5.0); Calcium 9.5 mg/dl (8.5-10.1); Est GFR (Non-African American) 92.3 ml/min; Globulin 3.2 gm/dl (2.5-4.0); Potassium 3.5 mmol/L (3.5-5.1); Total Protein 7.8 gm/dl (6.0-8.3)
[2022-08-18] MEDS ORDERED: MoRPHine SULFATE 4 MG/ML 1 ML CARP\\VIAL IV STA (17:38)
[2022-08-18] MEDS ORDERED: PROMETHAZINE 12.5 MG/50.5 ML BAG IV STA (17:38)
--- NOTE | 2022-08-18 17:44 | Emergency Department Note ---
Impression & Plan Acute left flank pain, Renal colic, Hydronephrosis, Leukocytosis ED Provider Note NAME: ALIX Lezama LINER AGE: 41 SEX: F : 1980 ARRIVES VIA: Walk-In INFORMANT: [Patient] ED PROVIDER(S): [Attila Quezada MD] CHIEF COMPLAINT: Flank pain HISTORY OF PRESENT ILLNESS: The patient is a 41-year-old female presents the ER with left flank pain. The pain initially began yesterday in the lower left pelvis. The patient states the pain was bearable yesterday and she thought she may be starting her menstrual cycle. The pain did have a colicky nature to it. In the last 12 or so hours, the patient has developed severe left flank pain and nausea and vomiting. She feels dehydrated. The pain is a 10/10. No urinary burning, no fever, no respiratory complaints. She thinks this is a passing kidney stone. She has had stones pass before. PMHx/PSHx: See Below SOCIAL HISTORY: See Below. PHYSICAL EXAM: GENERAL: Patient is in moderate distress from pain HEENT: No acute trauma, normocephalic atraumatic, mucous membranes moist, no nasal congestion. NECK: No stridor, no adenopathy, no meningismus, trachea is midline. LUNGS: Clear to auscultation bilaterally, no wheeze, no rhonchi, breath sounds equal. HEART: Without murmurs gallops or rubs, regular rate and rhythm. ABDOMEN: Soft, nontender, bowel sounds positive, no peritonitis. EXTREMITIES: No cyanosis, full range of motion of all the joints without pain or difficulty, no signs for acute trauma. NEUROLOGIC: Oriented x 3, no acute motor or sensory deficits, no focal weakness. SKIN: No rash, no jaundice, no diaphoresis. Back: Left flank discomfort with percussion. DIFFERENTIAL DIAGNOSIS: Renal colic, UTI, appendicitis, diverticulitis, mesenteric ischemia, aortic pathology, inflammatory bowel disease, PUD, biliary pathology, among others. EMERGENCY DEPARTMENT COURSE/PROCEDURES: Prior/Outside records reviewed: Prior hospital visits. MEDICAL DECISION MAKING: There is a moderate leukocytosis, this could be consistent with infection or just her pain. There was no anemia. There was a normal platelet count. Sodium was slightly low but not in need of emergent correction. No renal failure. No concerning liver enzyme elevation. Urinalysis did not show infection. testing returned negative. Abdominal and pelvis CT shows a large 9 mm proximal ureteral stone with hydronephrosis. On exam, the patient was quite uncomfortable. The patient received IV saline, 2 L. She was given IV Phenergan, IV Zofran, IV morphine, she received IV Toradol. Patient is going to require a hospital stay. This is a large stone that I do not think will pass on its own. She has been vomiting and was in significant discomfort upon arrival. I did speak with the patient, I spoke with case management, the on-call hospitalist was consulted. The patient is feeling improved since being treated here in the ED. DISPOSITION: Patient's presentation and findings warrant a hospital admission. Past Med/Surg History Medical History (Updated 08/18/22 @ 19:32 by Attila Quezada MD) Essential (primary) hypertension Hypokalemia Kidney stone Pseudotumor Surgical History H/O section History of cholecystectomy S/P ureteral stent placement Family History Mother Lung cancer Father Parkinson disease Denies family history of Ovarian cancer Prostate cancer Kidney stone Myocardial infarction Breast cancer Colorectal cancer Social History Smoking Status: Never smoker Age Quit Using Tobacco: 26; packs per day: 1; Second Hand Exposure: No; Hx Alcohol Use: No Hx Substance Use: No Preferred Language: French Communication Ability: Effective Visual Impairment: No Limitations Hearing Ability: Normal Shutdown Planner Required: No Beliefs That Will Affect Care: None marital status: Current Living Situation: Family current occupational status: employed current occupation: [employer] [facility] How many Children do You have: 1 other: 1 son - age 12 Feels Safe at Home: Yes Childhood Exposure to Second-Hand Smoke: Yes Diet Comment: regular caffeine: Yes during the past year weight has: remained stable Dental Care, Regularly: Yes Physical Activity Frequency: Daily Seatbelt Use: sometimes Sunscreen Use: Yes Assistive Devices: Contacts and Glasses Allergies Allergies Allergy/AdvReac Type Severity Reaction Status Date / Time bee venom protein (honey bee) Allergy Severe ANAPHYLAXIS Verified 07/17/22 15:13 A CHILD Home Meds Home Medications Medication Instructions Recorded Confirmed cetirizine 10 mg tablet (Zyrtec) 10 mg PO QAM 04/29/18 07/17/22 tamsulosin 0.4 mg capsule (Flomax) 0.4 mg PO DAILY PRN kidney stones 07/15/19 07/17/22 ibuprofen 200 mg tablet 200 mg PO Q6H PRN Pain 12/30/19 07/17/22 Previous Rx's Medication Instructions Recorded ondansetron 4 mg disintegrating 4 mg PO Q6H PRN nausea and 12/31/19 tablet vomiting #20 tabs potassium chloride 20 mEq 60 meq PO AMPM #60 tabs 04/15/22 tablet,extended release(part/cryst) (Klor-Con M) acetazolamide 500 mg 500 mg PO BID #60 caps 06/26/22 capsule,extended release hydrochlorothiazide 25 mg tablet 25 mg PO DAILY #90 tabs 07/17/22 metoprolol tartrate 50 mg tablet 50 mg PO ONCE #90 tabs 07/17/22 (Lopressor) Results & Data (ED) Vital Signs Vital Signs - 24 hr 08/18/22 16:55 08/18/22 19:25 Temperature 36.5 C Temperature Source Temporal Artery Scan Pulse Rate 84 Pulse Rate [Finger] 79 Respiratory Rate 18 20 Respiratory Effort / Characteristics Non-Labored Non-Labored Spontaneous Respiratory Depth Normal Normal Respiratory Pattern Regular Blood Pressure 154/90 H Blood Pressure [Right Arm] 139/82 Blood Pressure Mean 111 Blood Pressure Mean [Right Arm] 101 Pulse Oximetry 97 96 Oxygen Delivery Method Room Air Room Air Sepsis Recent Fever Within 48 Hours No Sepsis New/Unexplained Change in Mental Status N/A Sepsis Action Taken by Nursing No Action Required Home Medications Current Medication List: was personally reviewed by me Laboratory Data Attestation: I reviewed the patient's lab results. Result diagrams: 08/18/22 17:00 08/18/22 17:00 Lab Results 08/18/22 08/18/22 08/18/22 Range/Units 17:00 17:00 18:00 WBC 17.19 H (4.8-10.8) K/ul RBC 5.07 (3.93-5.22) M/uL Hgb 16.1 H (12.0-16.0) g/dl Hct 44.9 (34.1-44.9) % MCV 88.6 (80.0-100.0) fL MCH 31.8 (25.0-34.0) pg MCHC 35.9 (32.0-36.0) g/dL RDW Std Deviation 39.4 (36.4-46.3) fL RDW Coeff of [place] 12.2 (11.5-14.5) % Plt Count 269 (130-400) K/uL MPV 9.3 L (9.4-12.3) fL Immature Gran % (Auto) 0.6 % Neut % (Auto) 89.2 % Lymph % (Auto) 6.3 % [place] % (Auto) 3.5 % Eos % (Auto) 0.1 % Baso % (Auto) 0.3 % Neut # (Auto) 15.33 H (1.4-6.5) K/uL Lymph # (Auto) 1.08 L (1.2-3.4) K/uL [place] # (Auto) 0.61 (0.24-0.82) K/uL Eos # (Auto) 0.01 (0-0.50) K/uL Baso # (Auto) 0.05 (0-0.2) K/uL Immature Gran # (Auto) 0.11 H (0.00-0.02) K/uL Sodium 135 L (136-145) mmol/L Potassium 3.5 (3.5-5.1) mmol/L Chloride 102 (98-107) mmol/L Carbon Dioxide 22 (21-32) mmol/L Anion Gap 11 (3-11) BUN 15 (6-23) mg/dl Creatinine 0.79 (0.6-1.2) mg/dl Est Cr Clr Drug Dosing 110.0 ml/min Est GFR ( Amer) 107.0 ml/min Est GFR (Non-Af Amer) 92.3 ml/min BUN/Creatinine Ratio 19.0 (10-20) Glucose 127 H (70-99(Fasting)) mg/dl Calcium 9.5 (8.5-10.1) mg/dl Total Bilirubin 1.0 (0.2-1.0) mg/dl AST 23 (13-39) U/L ALT 19 (7-52) U/L Alkaline Phosphatase 93 (34-104) U/L Total Protein 7.8 (6.0-8.3) gm/dl Albumin 4.6 (3.4-5.0) gm/dl Globulin 3.2 (2.5-4.0) gm/dl Albumin/Globulin Ratio 1.4 (0.9-2) Urine Color Yellow Urine Appearance Clear (Clear) Urine pH 6.5 (4.5-7.5) Ur Specific Vance > 1.045 H (1.000-1.030) Urine Protein Negative (Negative) Urine Glucose (UA) Negative (Negative) Urine Ketones Negative (Negative) Urine Blood 2+ H (Negative) Urine Nitrite Negative (Negative) Urine Bilirubin Negative (Negative) Urine Urobilinogen Negative (Negative) Ur Leukocyte Esterase Negative (Negative) Urine WBC (Auto) 1-5 (0-5) /hpf Urine RBC (Auto) 10-30 H (0-4) /hpf U Hyaline Cast (Auto) 1-5 (0-5) /lpf U Epithel Cells (Auto) 20-30 H (0-5) /lpf Urine Bacteria (Auto) Negative (Negative) POC Ur Test (NEG) 08/18/22 Range/Units 18:00 WBC (4.8-10.8) K/ul RBC (3.93-5.22) M/uL Hgb (12.0-16.0) g/dl Hct (34.1-44.9) % MCV (80.0-100.0) fL MCH (25.0-34.0) pg MCHC (32.0-36.0) g/dL RDW Std Deviation (36.4-46.3) fL RDW Coeff of [place] (11.5-14.5) % Plt Count (130-400) K/uL MPV (9.4-12.3) fL Immature Gran % (Auto) % Neut % (Auto) % Lymph % (Auto) % [place] % (Auto) % Eos % (Auto) % Baso % (Auto) % Neut # (Auto) (1.4-6.5) K/uL Lymph # (Auto) (1.2-3.4) K/uL [place] # (Auto) (0.24-0.82) K/uL Eos # (Auto) (0-0.50) K/uL Baso # (Auto) (0-0.2) K/uL Immature Gran # (Auto) (0.00-0.02) K/uL Sodium (136-145) mmol/L Potassium (3.5-5.1) mmol/L Chloride (98-107) mmol/L Carbon Dioxide (21-32) mmol/L Anion Gap (3-11) BUN (6-23) mg/dl Creatinine (0.6-1.2) mg/dl Est Cr Clr Drug Dosing ml/min Est GFR ( Amer) ml/min Est GFR (Non-Af Amer) ml/min BUN/Creatinine Ratio (10-20) Glucose (70-99(Fasting)) mg/dl Calcium (8.5-10.1) mg/dl Total Bilirubin (0.2-1.0) mg/dl AST (13-39) U/L ALT (7-52) U/L Alkaline Phosphatase (34-104) U/L Total Protein (6.0-8.3) gm/dl Albumin (3.4-5.0) gm/dl Globulin (2.5-4.0) gm/dl Albumin/Globulin Ratio (0.9-2) Urine Color Urine Appearance (Clear) Urine pH (4.5-7.5) Ur Specific Vance (1.000-1.030) Urine Protein (Negative) Urine Glucose (UA) (Negative) Urine Ketones (Negative) Urine Blood (Negative) Urine Nitrite (Negative) Urine Bilirubin (Negative) Urine Urobilinogen (Negative) Ur Leukocyte Esterase (Negative) Urine WBC (Auto) (0-5) /hpf Urine RBC (Auto) (0-4) /hpf U Hyaline Cast (Auto) (0-5) /lpf U Epithel Cells (Auto) (0-5) /lpf Urine Bacteria (Auto) (Negative) POC Ur Test NEG (NEG) Administered Medications Discontinued Medications Sodium Chloride (Nss) 500 mls @ 999 mls/hr IV .Q31M STA Stop: 08/18/22 17:30 Last Admin: 08/18/22 17:04 Dose: 999 mls/hr Documented By: Sodium Chloride (Nss 1000ml) 500 mls @ 999 mls/hr IV .Q31M ONE Stop: 08/18/22 17:59 Last Infusion: 08/18/22 18:53 Dose: 0 mls/hr Documented By: Admin: 08/18/22 17:49 Dose: 999 mls/hr Documented By: RAUL Promethazine HCl (Phenergan) 12.5 mg in 50.5 mls @ 202 mls/hr IV NOW STA Stop: 08/18/22 17:52 Last Infusion: 08/18/22 18:53 Dose: 0 mls/hr Documented By: Admin: 08/18/22 17:47 Dose: 202 mls/hr Documented By: RAUL Ioversol (Optiray 350 100ml) 80 ml IV ONCE ONE Stop: 08/18/22 18:11 Last Admin: 08/18/22 18:12 Dose: 80 ml Documented By: ELINA Ketorolac Tromethamine (Ketorolac Tromethamine 15 Mg/Ml Vial) 15 mg IV NOW STA Stop: 08/18/22 17:30 Last Admin: 08/18/22 17:56 Dose: 15 mg Documented By: RAUL Morphine Sulfate (Morphine Sulfate 4 Mg/Ml 1 Ml Carp\Vial) 4 mg IV NOW STA Stop: 08/18/22 17:39 Last Admin: 08/18/22 17:47 Dose: 4 mg Documented By: RAUL Ondansetron HCl (Ondansetron Inj 2 Mg/Ml 2 Ml Vial) 4 mg IV NOW STA Stop: 08/18/22 17:01 Last Admin: 08/18/22 17:04 Dose: 4 mg Documented By: JOHN Imaging Data Radiologist's Impression: Abdomen/Pelvis CT 08/18/22 17:28 CT SCAN OF THE ABDOMEN AND PELVIS WITH IV CONTRAST CLINICAL HISTORY: Flank pain COMPARISON STUDY: Abdominal CT dated 12/30/2019. TECHNIQUE: Following the IV administration of 80 cc of Optiray 350, CT scan of the abdomen and pelvis is performed from the lung bases to the proximal femora. Images are reviewed in the axial, sagittal, and coronal planes. IV contrast was administered without complication. A dose lowering technique was utilized adhering to the principles of ALARA. CT DOSE: 1280.01 mGycm FINDINGS: Lung bases: The heart is normal in size and without pericardial effusion. The lung bases are clear. A small hiatal hernia is noted. Liver: The contrast-enhanced liver is mildly enlarged measuring over 18 cm in length. The liver demonstrates diminished attenuation indicating steatosis. There is mild central intrahepatic biliary ductal dilatation. The hepatic veins and portal veins are patent. Gallbladder: Surgically absent noting clips in the gallbladder fossa. Spleen: Normal in size and attenuation. Pancreas: Unremarkable. Adrenal glands: Unremarkable. Kidneys: The contrast enhanced kidneys are normal in size. There is a 9 mm obstructing calculus in the mid left ureter seen on axial image #274. This is located at the level of L4-L5 and causes moderate left hydroureteronephrosis. There is associated left-sided perinephric and perienteric stranding/trace fluid. No additional left renal calculi are clearly identified on this contrast- enhanced examination. There are at least 2 small nonobstructing right renal calculi which measure up to 3 mm. There is no right ureteral stone or right- sided hydronephrosis. There is heterogeneously diminished enhancement of the left kidney as compared to the right. Abdominal vasculature: The abdominal aorta is normal in course and caliber. Bowel: There is mild colonic diverticulosis without CT evidence of acute diverticulitis. No bowel obstruction is seen. The appendix is well-visualized and normal. Peritoneum: There is no intraperitoneal free air or abdominal ascites. There is a small fat-containing umbilical hernia. Lymphadenopathy: None. Pelvic viscera: The bladder, uterus, and adnexa are normal as visualized. Skeletal structures: No lytic or blastic lesions are seen. Sclerotic changes noted in the sacroiliac joints. IMPRESSION: 1. There is a 9 mm obstructing calculus in the mid left ureter. This causes moderate left hydroureteronephrosis. 2. There is heterogeneously diminished enhancement of the left kidney as compared to the right, likely related to obstruction/hydronephrosis. Correlate with clinical findings and urinalysis for evidence of superimposed urinary tract infection. 3. Additional tiny nonobstructing stones are seen in the right kidney. 4. The liver is enlarged and mildly steatotic. 5. Additional findings as above. ACT 112: Negative or not required by law. Electronically signed by: Attila Tian M.D. 08/18/2022 6:52 PM Discharge Plan Visit Data Chief Complaint: Flank Pain Stated Complaint: POSSIBLE KIDNEY STONE ED Provider: Attila Quezada Discharge Problem: Acute left flank pain, Renal colic, Hydronephrosis, Leukocytosis Patient Disposition: Admitted As Inpatient Condition: Fair Forms Stand Alone Forms: My [facility] Prescriptions Prescriptions: No Action potassium chloride [Klor-Con M20] 20 mEq tablet,ER particles/crystals 60 meq PO AMPM Qty: 60 1RF acetazolamide 500 mg capsule, extended release 500 mg PO BID Qty: 60 1RF hydrochlorothiazide 25 mg tablet 25 mg PO DAILY Qty: 90 1RF metoprolol tartrate [Lopressor] 50 mg tablet 50 mg PO ONCE Qty: 90 1RF Rx Instructions: take 1 qhs x 2 weeks, then 1/2 tablet qhs, then gradually wean down. cetirizine [Zyrtec] 10 mg Tablet 10 mg PO QAM ibuprofen 200 mg Tablet 200 mg PO Q6H PRN (Reason: Pain) ondansetron 4 mg tablet,disintegrating 4 mg PO Q6H PRN (Reason: nausea and vomiting) Qty: 20 0RF tamsulosin [Flomax] 0.4 mg Capsule 0.4 mg PO DAILY PRN (Reason: kidney stones) Referrals Referrals: Shine Bellamy DO [Primary Care Provider] -
[2022-08-18] MEDS ORDERED: OPTIRAY 350 100ml IV ONE (18:10)
[2022-08-18] MEDS ORDERED: SODIUM CHLORIDE 0.9% 1000ML 1,000 ML IV ONE (18:33)
--- NOTE | 2022-08-18 18:54 | CT Scan Report ---
CT SCAN OF THE ABDOMEN AND PELVIS WITH IV CONTRAST CLINICAL HISTORY: Flank pain COMPARISON STUDY: Abdominal CT dated 12/30/2019. TECHNIQUE: Following the IV administration of 80 cc of Optiray 350, CT scan of the abdomen and pelvis is performed from the lung bases to the proximal femora. Images are reviewed in the axial, sagittal, and coronal planes. IV contrast was administered without complication. A dose lowering technique was utilized adhering to the principles of ALARA. CT DOSE: 1280.01 mGycm FINDINGS: Lung bases: The heart is normal in size and without pericardial effusion. The lung bases are clear. A small hiatal hernia is noted. Liver: The contrast-enhanced liver is mildly enlarged measuring over 18 cm in length. The liver demon strates diminished attenuation indicating steatosis. There is mild central intrahepatic biliary ducta l dilatation. The hepatic veins and portal veins are patent. Gallbladder: Surgically absent noting clips in the gallbladder fossa. Spleen: Normal in size and attenuation. Pancreas: Unremarkable. Adrenal glands: Unremarkable. Kidneys: The contrast enhanced kidneys are normal in size. There is a 9 mm obstructing calculus in th e mid left ureter seen on axial image #274. This is located at the level of L4-L5 and causes moderate left hydroureteronephrosis. There is associated left-sided perinephric and perienteric stranding/tra ce fluid. No additional left renal calculi are clearly identified on this contrast-enhanced examinati on. There are at least 2 small nonobstructing right renal calculi which measure up to 3 mm. There is no right ureteral stone or right-sided hydronephrosis. There is heterogeneously diminished enhancemen t of the left kidney as compared to the right. Abdominal vasculature: The abdominal aorta is normal in course and caliber. Bowel: There is mild colonic diverticulosis without CT evidence of acute diverticulitis. No bowel obs truction is seen. The appendix is well-visualized and normal. Peritoneum: There is no intraperitoneal free air or abdominal ascites. There is a small fat-containin g umbilical hernia. Lymphadenopathy: None. Pelvic viscera: The bladder, uterus, and adnexa are normal as visualized. Skeletal structures: No lytic or blastic lesions are seen. Sclerotic changes noted in the sacroiliac joints. IMPRESSION: 1. There is a 9 mm obstructing calculus in the mid left ureter. This causes moderate left hydroureter onephrosis. 2. There is heterogeneously diminished enhancement of the left kidney as compared to the right, likel y related to obstruction/hydronephrosis. Correlate with clinical findings and urinalysis for evidence of superimposed urinary tract infection. 3. Additional tiny nonobstructing stones are seen in the right kidney. 4. The liver is enlarged and mildly steatotic. 5. Additional findings as above. ACT 112: Negative or not required by law. Electronically signed by: Attila Tian M.D. 08/18/2022 6:52 PM
[2022-08-18] MEDS ORDERED: MoRPHine SULFATE 4 MG/ML 1 ML CARP\\VIAL IV PRN (19:00)
[2022-08-18 19:13] LABS: Appearance Urine Clear (Clear); Bacteria Urine Automated Negative (Negative); Bilirubin Urine Negative (Negative); Blood Urine 2+ (Negative); Color Urine Yellow; Epithelial Cell Urine Auto 20-30 /lpf (0-5); Glucose Urine UA Negative (Negative); Ketones Urine Negative (Negative); Leukocyte Esterase Urine Negative (Negative); Nitrite Urine Negative (Negative); Protein Urine Negative (Negative); Specific Gravity Urine > 1.045 (1.000-1.030); Urobilinogen Urine Negative (Negative); pH Urine 6.5 (4.5-7.5)
--- NOTE | 2022-08-18 20:39 | History & Physical Report ---
Date of Service August 18, 2022 Assessment & Plan (1) Hydroureteronephrosis: Plan: Fernanda is a 41 year old female w/ PmHx kidney stones, hypertension, pseudotumor cerebri admitted for L hydroureteronephrosis and L 9mm kidney stone. Hydroureteronephrosis, kidney stone: -WBC 17.19, neutrophil predominant 15.33, U/A 2+ blood, negative WBC, nitrate, bacteria. -CT A&P w/ 9mm obstructing calculus to mid L ureter, moderate L hydronephrosis, heterogenously diminished enhancement L kidney compared to R; two 3mm stones in R kidney, liver enlarged and mildly steatotic. -Patient remains afebrile, hemodynamically stable. -Urine culture ordered. -Will treat empirically for possible infection w/ hydronephrosis. Started on Zosyn 3.375g q8h. -Urology consulted, will appreciate recs. -NPO for possible procedure, continue IVF NSS at 100ml/hr. -Tylenol 650 q6h PRN, toradol 15mg q6h PRN moderate pain, morphine 2mg IV q3h PRN for severe pain. -Zofran 4mg q6h PRN for nausea, can give spot doses of Phenergan if not controlled. ECG ordered for QTc. Leukocytosis: -WBC 17.19, neutrophil predominant 15.33. -Most likely due to underlying infection from hydroureteronephrosis vs stress. -Continue to monitor w/ AM CBC. HTN: -Continue home metoprolol tartrate 50mg daily and HCTZ 25mg daily. Hx of Pseudotumor cerebri: -Continue home acetazolamide 500mg BID. F/E/N: NPO for possible procedure. IVF maint 100ml/hr. DVT Prophylaxis: SCDs Code status: Full. Dispo: Med/surg Telemetry. (2) Kidney stone: (3) Essential (primary) hypertension: (4) Acute left flank pain: (5) Pseudotumor: (6) Leukocytosis: History of Present Illness Chief Complaint: L sided flank and abdominal pain, vomiting Primary Care Provider: Shine Bellamy DO Fernanda is a 41 year old female with PmHx kidney stones, hypertension, pse udotumor cerebri who presents to the ED for 1 day of L sided abdominal pain and nausea/vomiting. Patient has a past history of kidney stones going back to 2018 when she had a kidney stone that required a stent. She said that she did not have any kidney stones prior to 2018 and that since then she has had stones that she has been able to pass on her own, only needing to come to the ED 2 times since initial visit in 2018. She state that she has since had kidney stones every 4-6 months and they may come as 1-2 per month at a time when they come. She saw her PCP in early July and was started on hydrochlorothiazide for blood pressure in addition to her metoprolol tartrate 50mg daily. Yesterday she started to develop back pain at the left that radiated towards the lateral abdomen along with lower abdominal cramping, as well as frequent vomiting throughout the day and night. She knew at that point the kidney stone was bad enough for her to go to the ED and so she arrived earlier today. Patient denies any burning with urination, hematuria, and states her urine has been clear. Denies any fevers, chills, shortness of breath, chest pain, headaches. Patient states she used to see Dr. Alegre at [facility] urology in the past for kidney stones and that she was told the consistency of her stones was some sort of calcium composite. She states she was no longer able to see [facility] due to them not accepting [facility] insurance. She does not currently have any stent in place and hasn't had one in place for years as she says the last time she had one after a few days she could barely move due to pain and needed it taken out. She states she currently is in between jobs, quit her job on the at [employer] and will start work at her next job starting Thursday, so she is currently without insurance. In the ED she was found to have a WBC 17.19, neutrophil 15.33, BUN/Creat 15/0.79, POC test negative, U/A positive for 2+ blood, 10-30 RBC, negative for WBC, nitrates, or bacteria. CT A&P revealed L Hydroureteronephrosis, 9mm stone, heterogeneously diminished enhancement of L kidney compared to right. She was given 15mg Toradol and 4mg morphine for pain, 4mg zofran and 12.5mg Phenergan for nausea, as well as a 500cc bolus. Allergies Allergy/AdvReac Type Severity Reaction Status Date / Time bee venom protein (honey bee) Allergy Severe ANAPHYLAXIS Verified 08/18/22 21:13 A CHILD Home Medications Medication Instructions Recorded Confirmed Type cetirizine 10 mg tablet (Zyrtec) 10 mg PO QAM 04/29/18 08/18/22 History tamsulosin 0.4 mg capsule (Flomax) 0.4 mg PO DAILY PRN kidney stones 07/15/19 08/18/22 History ibuprofen 200 mg tablet 200 mg PO Q6H PRN Pain 12/30/19 08/18/22 History ondansetron 4 mg disintegrating 4 mg PO Q6H PRN nausea and 12/31/19 08/18/22 Rx tablet vomiting #20 tabs potassium chloride 20 mEq 60 meq PO AMPM #60 tabs 04/15/22 08/18/22 Rx tablet,extended release(part/cryst) (Klor-Con M) acetazolamide 500 mg 500 mg PO BID #60 caps 06/26/22 08/18/22 Rx capsule,extended release hydrochlorothiazide 25 mg tablet 25 mg PO DAILY #90 tabs 07/17/22 08/18/22 Rx Past Med/Surg History Medical History Essential (primary) hypertension Hypokalemia Kidney stone Pseudotumor Surgical History H/O section History of cholecystectomy S/P ureteral stent placement Family History Mother Lung cancer age 42 Father Parkinson disease Denies family history of Ovarian cancer Prostate cancer Kidney stone Myocardial infarction Breast cancer Colorectal cancer Social History Smoking Status: Never smoker Age Quit Using Tobacco: 26; packs per day: 1; Second Hand Exposure: No; Hx Alcohol Use: No Hx Substance Use: No Preferred Language: Urdu Communication Ability: Effective Visual Impairment: No Limitations Hearing Ability: Normal Performance Makeup 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 Required: No Beliefs That Will Affect Care: None marital status: Current Living Situation: Family current occupational status: employed 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 Physical Exam Constitutional: WD/WN, vitals as above Eyes: PERRL, conjunctivae normal, anicteric sclerae Respiratory: normal respiratory effort, lungs clear to auscultation Cardiovascular: RRR, no murmur, no edema Gastrointestinal (Abdomen): BS+, tender to palpation at the lateral aspect of patient's L mid abdomen, non-tender elsewhere on the anterior abdomen, soft. Skin: no rashes, warm and dry Psychiatric: A+Ox3, euthymic affect Genitourinary: Mild tenderness to palpation at the posterior left flank with more pain elicited at the L lateral aspect of the abdomen at the level of L3-L4. Results & Data Results & Data ([facility]) Vital Signs (Past 12 Hours) Vital Signs Temp Pulse Pulse Resp BP BP Pulse Ox 08/18/22 19:25 79 20 139/82 96 08/18/22 16:55 36.5 C 84 18 154/90 H 97 O2 Del Method 08/18/22 19:25 Room Air 08/18/22 16:55 Room Air Supervising Physician Co-Signing Physician Notes Attending addendum: I have physically seen this patient, have supervised the medical residents activities, and agree with the H&P unless as otherwise noted. Assessment and Plan: 9 mm obstructing calculus at mid left ureter/moderate left hydroureteronephrosis- NPO Follow urine culture sensitivity Zosyn IV begun Serial pain control as noted with Tylenol, Toradol and morphine Zofran 4 mg IV every 6 hours as needed NSS at 100 mils per hour Urology consult Hypertension- Hold HCTZ Continue metoprolol tartrate with hold parameters Pseudotumor cerebri- Continue acetazolamide 500 mg p.o. twice daily Remaining orders and notations as noted Resident Activity Tracking Resident Involvement: Resident Care Provided Care Provided: Adult Hospital Medicine (1) Leukocytosis Leukocytosis type: unspecified Qualified Code(s): D72.829 - Elevated white blood cell count, unspecified
[2022-08-18] MEDS ORDERED: KETOROLAC TROMETHAMINE 15 MG/ML VIAL IM PRN (23:40)
[2022-08-18] MEDS ORDERED: ACETAMINOPHEN 325 MG TAB PO PRN (23:40)
[2022-08-18] MEDS ORDERED: METOPROLOL TARTRATE 50 MG TAB PO SCH (23:40)
[2022-08-18] MEDS: MoRPHine SULFATE 2 MG/ML CARP IV PRN (23:54)
[2022-08-18] MEDS: SODIUM CHLORIDE 0.9% 1000ML 1,000 ML IV SCH (23:56)
[2022-08-19] MEDS ORDERED: PIPERACILLIN/TAZOBACTAM 4.5 GM in DEXTROSE 5% 100 ML IV ONE
[2022-08-19] MEDS: acetaZOLAMIDE 500 MG CAPCR PO SCH ×3 (00:21→20:54)
[2022-08-19] MEDS: ONDANSETRON INJ 2 MG/ML 2 ML VIAL IV PRN ×2 (02:23→08:24)
[2022-08-19] MEDS: MoRPHine SULFATE 2 MG/ML CARP IV PRN ×2 (02:47→05:31)
[2022-08-19] MEDS: PIPERACILLIN/TAZOBACTAM 3.375 GM in DEXTROSE 5% 100 ML IV SCH ×3 (05:31→22:08)
[2022-08-19 07:00] LABS: Basophils # (auto) 0.04 K/uL (0-0.2); Basophils % (auto) 0.3 %; Hematocrit (blood only) 39.6 % (34.1-44.9); Hemoglobin 14.1 g/dl (12.0-16.0); Immature Granulocytes # (auto) 0.14 K/uL (0.00-0.02); Immature Granulocytes % (auto) 0.9 %; Lymphocytes # (auto) 1.11 K/uL (1.2-3.4); Lymphocytes % (auto) 7.4 %; Mean Corpuscular Hemoglobin 31.7 pg (25.0-34.0); Mean Corpuscular Hgb Conc 35.6 g/dL (32.0-36.0); Mean Platelet Volume 9.4 fL (9.4-12.3); Monocytes # (auto) 1.02 K/uL (0.24-0.82); Monocytes % (auto) 6.8 %; Neutrophils # (auto) 12.66 K/uL (1.4-6.5); Neutrophils % (auto) 84.6 %; Platelet Count 220 K/uL (130-400); RDW Coefficient of Variation 12.4 % (11.5-14.5); RDW Standard Deviation 39.8 fL (36.4-46.3); Red Blood Count 4.45 M/uL (3.93-5.22); White Blood Count 14.97 K/ul (4.8-10.8)
[2022-08-19 07:21] LABS: BUN Creatinine Ratio 12.4 (10-20); Creatinine Clr Calc Pharmacy 89.6 ml/min; Est GFR (African American) 83.5 ml/min; Potassium 2.9 mmol/L (3.5-5.1)
--- NOTE | 2022-08-19 08:34 | Urology Consultation ---
Date of Consultation August 19, 2022 Assessment & Plan (1) Calculus of proximal left ureter: (2) Hydroureteronephrosis: This is a 41-year-old female admitted for left abdominal pain secondary to an obstructing 9 mm mid left ureteral stone with moderate hydronephrosis. Patient is afebrile, nontoxic and hemodynamically stable. CTAP reviewed and notable for a 9 mm proximal/mid left ureteral stone with moderate hydronephrosis. Lab work tpday shows a normal creatinine, WBC trending down (14.97). Urinalysis on admission was not suggestive of infection. Urine culture is pending. She is on IV Zosyn. Urine negative. We discussed options for stone management including observation/trial of passage versus surgical intervention inpatient with left ureteral stent placement or outpatient surgical intervention with ESWL or ureteroscopy, laser lithotripsy and stent placement. Procedures, success rates, risks, benefits and clinical courses reviewed. Stone free rates were also discussed as well as possibility of multiple procedures. Ureteral stents were discussed as well as post- operative issues and pain management. After discussion, she elects surgical intervention today with left ureteral stent placement. We discussed the need for stone treatment in the future. Plan: Keep NPO for procedure. Proceed to OR today with cystoscopy and left ureteral stent placement. Risks and benefits to be reviewed with patient by Dr. Fountain. OR notified. Will cover with scheduled IV Zosyn preoperatively. Continue supportive care, strain all urine. will follow. Supervising Physician Co-Signing Physician Notes I have discussed Ms. Laurent's case with DONNA Patterson and agree with the above documentation. She is having ongoing pain related to a left ureteral stone. We will plan for cystoscopy and left stent placement under anesthesia. History of Present Illness Attending Physician: Greg Waldrop History of Present Illness This is a 41-year-old female with past medical history of pseudotumor, hypertension, obesity, and recurrent nephrolithiasis who presented to the emergency department on 08/18/2022 with complaint of lower left pelvic/abdominal pain and associated nausea and vomiting. On presentation to the ER she was afebrile and hemodynamically stable. Lab work reviewed and revealed a normal creatinine, sodium 135, leukocytosis of 17.19. Urinalysis notable for 2+ blood, 1030 RBCs, 20-30 epithelials. Urine negative. A CT abdomen and pelvis was performed. CT imaging reviewed and notable for an obstructing 9 mm mid left ureteral stone with moderate hydroureteronephrosis. ER course included: IV fluids, IV Phenergan, IV Zofran, IV morphine, and IV Toradol. Patient seen and examined this morning. She is awake, alert and resting in bed in no acute distress. She reports persistent left abdominal pain rated 5 out of 10 at present. She reports persistent nausea. Reports vomiting overnight. No fever or chills. She is voiding spontaneously without difficulty. No dysuria or hematuria. She is NPO. No chest pain or shortness of breath. Reports passing kidney stones in the past. Also notes prior intervention with ureteroscopy and laser lithotripsy, stent placement. Poorly tolerated stent in the past. Allergies Allergy/AdvReac Type Severity Reaction Status Date / Time bee venom protein (honey bee) Allergy Severe ANAPHYLAXIS Verified 08/18/22 21:13 A CHILD Home Medications Medication Instructions Recorded Confirmed Type cetirizine 10 mg tablet (Zyrtec) 10 mg PO QAM 04/29/18 08/18/22 History tamsulosin 0.4 mg capsule (Flomax) 0.4 mg PO DAILY PRN kidney stones 07/15/19 08/18/22 History ibuprofen 200 mg tablet 200 mg PO Q6H PRN Pain 12/30/19 08/18/22 History ondansetron 4 mg disintegrating 4 mg PO Q6H PRN nausea and 12/31/19 08/18/22 Rx tablet vomiting #20 tabs potassium chloride 20 mEq 60 meq PO AMPM #60 tabs 04/15/22 08/18/22 Rx tablet,extended release(part/cryst) (Klor-Con M) acetazolamide 500 mg 500 mg PO BID #60 caps 06/26/22 08/18/22 Rx capsule,extended release hydrochlorothiazide 25 mg tablet 25 mg PO DAILY #90 tabs 07/17/22 08/18/22 Rx Patient History Medical History (Updated 08/19/22 @ 08:34 by DONNA Butterfield) Essential (primary) hypertension Hypokalemia Kidney stone Pseudotumor Surgical History H/O section History of cholecystectomy S/P ureteral stent placement Family History Mother Lung cancer age 42 Father Parkinson disease Denies family history of Ovarian cancer Prostate cancer Kidney stone Myocardial infarction Breast cancer Colorectal cancer Social History Smoking Status: Never smoker Age Quit Using Tobacco: 26; packs per day: 1; Second Hand Exposure: No; Hx Alcohol Use: No Hx Substance Use: No Preferred Language: [place] Communication Ability: Effective Visual Impairment: No Limitations Hearing Ability: Normal Taxi Truck Driver Required: No Beliefs That Will Affect Care: None marital status: Current Living Situation: Family current occupational status: employed 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[employer] [facility] How many Children do You have: 1 Other Information That Helps Us Care for You: No other: 1 son - age 12 Feels Safe at Home: Yes Safety Concerns: Feels Safe At This Time Childhood Exposure to Second-Hand Smoke: Yes Diet Comment: regular caffeine: Yes during the past year weight has: remained stable Dental Care, Regularly: Yes Physical Activity Frequency: Daily Seatbelt Use: sometimes Sunscreen Use: Yes Assistive Devices: Contacts and Glasses Review of Systems Review of Systems: All systems reviewed & are unremarkable except as noted in HPI & below Physical Exam Constitutional: well developed, well nourished and + obese; no acute distress and not ill appearing Eyes: no scleral abnormality Neck: normal visual inspection Respiratory: normal respiratory effort and able to speak in complete sentences; no respiratory distress and no labored breathing Cardiovascular: Extremities: no pedal edema Gastrointestinal (Abdomen): Inspection/Auscultation: abdomen normal to inspection; abdomen not distended Percussion/Palpation: abdomen soft; abdomen nontender and no guarding Musculoskeletal: Head/Neck/Chest: normocephalic and head atraumatic Extremities: extremities normal to inspection Skin: no visible rashes Neurologic: moves all extremities and awake Psychiatric: Orientation: alert and oriented x 3 Genitourinary: no CVA tenderness Results & Data ([facility]) Vital Signs (Past 12 Hours) Vital Signs Temp Pulse Pulse Resp BP Pulse Ox O2 Del Method 08/19/22 08:19 36.7 C 70 20 154/96 H 95 Room Air 08/19/22 03:59 89 08/19/22 03:22 36.9 C 88 18 121/74 93 Room Air 08/19/22 00:05 Room Air 08/19/22 00:05 36.8 C 92 H 18 155/100 H 94 Room Air 08/18/22 22:23 73 18 129/62 94 Room Air PG Care Time/CCT Total # of Minutes Spent Total Time Spent with Patient: Total time spent is greater than 50% in coordination of care (as documented) at patient's floor/unit and/or counseling patient: Coding Level of Care Code 85353 Inpt Consult Level 3 Diagnoses Calculus of proximal left ureter N20.1 Hydroureteronephrosis N13.30
[2022-08-19] MEDS: hydroCHLOROthiazide 25 MG TAB PO SCH (09:03)
[2022-08-19] MEDS: POTASSIUM CHLORIDE / WTR 10 MEQ/100 ML PLCT IV SCH (09:03)
[2022-08-19] MEDS: POTASSIUM CHLORIDE CRTAB 20 MEQ TABCR PO SCH ×3 (09:04→21:00)
[2022-08-19] MEDS: SODIUM CHLORIDE 0.9% 1000ML 1,000 ML IV SCH ×2 (09:05→19:30)
[2022-08-19] MEDS ORDERED: PROPOFOL IV EMULSION 10 MG/ML 20 ML VIAL IV ONE ×3 (12:25→13:37)
[2022-08-19] MEDS ORDERED: fentaNYL citrate 100 MCG/2 ML VIAL ONE (12:25)
[2022-08-19] MEDS ORDERED: MIDAZOLAM HCL 1 MG/ML 2ML VIAL ONE (12:25)
[2022-08-19] MEDS ORDERED: ONDANSETRON INJ 2 MG/ML 2 ML VIAL ONE (12:25)
[2022-08-19] MEDS ORDERED: KETAMINE 50 MG/5 ML SYRINGE ONE (12:26)
--- NOTE | 2022-08-19 12:31 | Hospitalist Progress Note ---
Date of Service August 19, 2022 Assessment & Plan (1) Calculus of proximal left ureter: Plan: s/p L ureteral stent placement today by Dr Fountain appreciate urology assistance cont pain meds cont pyridium prn add oxybutinin if needed abx fluids follow urine cx's (2) Hydroureteronephrosis: Plan: 2nd to #1 (3) Pseudotumor: Plan: cont diamox 500mg BID no headaches at this time (4) Hypokalemia: Plan: 2nd to combination of both HCTZ + diamox? [id number] is on very large quantities of K supplementation chronically (120meq daily) check renin/tara levels AM replace IV + PO today checked mag & was wnl recheck K in am (5) Essential (primary) hypertension: Plan: cont HCTZ (6) UTI (urinary tract infection): Plan: remains on zosyn this can likely be downgraded (7) Morbid obesity with BMI of 45.0-49.9, adult: Plan: BMI 45 Plan watch overnight and, if lytes are stable in am, then d/c home then Admission and Anticipated Discharge Date Admission Date: August 18, 2022 Subjective patient reports nausea and multiple episodes of vomiting overnight this has subsided left flank pain remains but it is not as severe denies pelvic pain today has agreed to left ureteral stent placement today patient reports copious KCL supplementation chronically, previously attributed to diamox use Review of Systems Review of Systems: gen - no fevers cv - no chest pain pulm - no dyspnea Physical Exam Physical Exam: gen - obese, NAD mouth - MMM neck - no JVD heart - RRR, s1 s2, no murmur lungs - CTA b/l abd - mild L flank tenderness to palpation, BS+, ND, no anterior abd pain ext - no edema, pulses 2+ b/l Results & Data Results & Data ([facility]) Vital Signs (Past 12 Hours) Vital Signs Temp Pulse Pulse Resp BP BP Pulse Ox 08/19/22 12:00 36.7 C 73 18 119/77 93 08/19/22 08:19 36.7 C 70 20 154/96 H 95 08/19/22 03:59 89 08/19/22 03:22 36.9 C 88 18 121/74 93 O2 Del Method 08/19/22 12:00 Room Air 01/03/23 08:19 Room Air 08/19/22 03:59 08/19/22 03:22 Room Air Laboratory Results Laboratory Results - last 24 hr 08/18/22 08/18/22 08/18/22 17:00 17:00 18:00 WBC 17.19 H RBC 5.07 Hgb 16.1 H Hct 44.9 MCV 88.6 MCH 31.8 MCHC 35.9 RDW Std Deviation 39.4 RDW Coeff of [place] 12.2 Plt Count 269 MPV 9.3 L Immature Gran % (Auto) 0.6 Neut % (Auto) 89.2 Lymph % (Auto) 6.3 Rush % (Auto) 3.5 Eos % (Auto) 0.1 Baso % (Auto) 0.3 Neut # (Auto) 15.33 H Lymph # (Auto) 1.08 L Rush # (Auto) 0.61 Eos # (Auto) 0.01 Baso # (Auto) 0.05 Immature Gran # (Auto) 0.11 H Sodium 135 L Potassium 3.5 Chloride 102 Carbon Dioxide 22 Anion Gap 11 BUN 15 Creatinine 0.79 Est Cr Clr Drug Dosing 110.0 Est GFR ( Amer) 107.0 Est GFR (Non-Af Amer) 92.3 BUN/Creatinine Ratio 19.0 Glucose 127 H Calcium 9.5 Magnesium Total Bilirubin 1.0 AST 23 ALT 19 Alkaline Phosphatase 93 Total Protein 7.8 Albumin 4.6 Globulin 3.2 Albumin/Globulin Ratio 1.4 Urine Color Yellow Urine Appearance Clear Urine pH 6.5 Ur Specific [place] > 1.045 H Urine Protein Negative Urine Glucose (UA) Negative Urine Ketones Negative Urine Blood 2+ H Urine Nitrite Negative Urine Bilirubin Negative Urine Urobilinogen Negative Ur Leukocyte Esterase Negative Urine WBC (Auto) 1-5 Urine RBC (Auto) 10-30 H U Hyaline Cast (Auto) 1-5 U Epithel Cells (Auto) 20-30 H Urine Bacteria (Auto) Negative POC Ur Test SARS-CoV-2, RNA, NAAT 08/18/22 08/18/22 08/19/22 18:00 20:35 06:18 WBC 14.97 H RBC 4.45 Hgb 14.1 Hct 39.6 MCV 89.0 MCH 31.7 MCHC 35.6 RDW Std Deviation 39.8 RDW Coeff of [place] 12.4 Plt Count 220 MPV 9.4 Immature Gran % (Auto) 0.9 Neut % (Auto) 84.6 Lymph % (Auto) 7.4 Rush % (Auto) 6.8 Eos % (Auto) 0.0 Baso % (Auto) 0.3 Neut # (Auto) 12.66 H Lymph # (Auto) 1.11 L Rush # (Auto) 1.02 H Eos # (Auto) 0.00 Baso # (Auto) 0.04 Immature Gran # (Auto) 0.14 H Sodium Potassium Chloride Carbon Dioxide Anion Gap BUN Creatinine Est Cr Clr Drug Dosing Est GFR ( Amer) Est GFR (Non-Af Amer) BUN/Creatinine Ratio Glucose Calcium Magnesium Total Bilirubin AST ALT Alkaline Phosphatase Total Protein Albumin Globulin Albumin/Globulin Ratio Urine Color Urine Appearance Urine pH Ur Specific [place] Urine Protein Urine Glucose (UA) Urine Ketones Urine Blood Urine Nitrite Urine Bilirubin Urine Urobilinogen Ur Leukocyte Esterase Urine WBC (Auto) Urine RBC (Auto) U Hyaline Cast (Auto) U Epithel Cells (Auto) Urine Bacteria (Auto) POC Ur Test NEG SARS-CoV-2, RNA, NAAT NEGATIVE 08/19/22 08/19/22 06:18 06:18 WBC RBC Hgb Hct MCV MCH MCHC RDW Std Deviation RDW Coeff of [place] Plt Count MPV Immature Gran % (Auto) Neut % (Auto) Lymph % (Auto) Rush % (Auto) Eos % (Auto) Baso % (Auto) Neut # (Auto) Lymph # (Auto) Rush # (Auto) Eos # (Auto) Baso # (Auto) Immature Gran # (Auto) Sodium 137 Potassium 2.9 L Chloride 107 Carbon Dioxide 21 Anion Gap 9 BUN 12 Creatinine 0.97 Est Cr Clr Drug Dosing 89.6 Est GFR ( Amer) 83.5 Est GFR (Non-Af Amer) 72.0 BUN/Creatinine Ratio 12.4 Glucose 136 H Calcium 8.0 L Magnesium 1.8 Total Bilirubin AST ALT Alkaline Phosphatase Total Protein Albumin Globulin Albumin/Globulin Ratio Urine Color Urine Appearance Urine pH Ur Specific [place] Urine Protein Urine Glucose (UA) Urine Ketones Urine Blood Urine Nitrite Urine Bilirubin Urine Urobilinogen Ur Leukocyte Esterase Urine WBC (Auto) Urine RBC (Auto) U Hyaline Cast (Auto) U Epithel Cells (Auto) Urine Bacteria (Auto) POC Ur Test SARS-CoV-2, RNA, NAAT Diagnostic Findings urine cx pending PG Care Time/CCT Total # of Minutes Spent Total Time Spent with Patient: Total time spent is greater than 50% in coordination of care (as documented) at patient's floor/unit and/or counseling patient: Coding Level of Care Code 35424 SUB INP/OBS CARE 2/35MIN Diagnoses Calculus of proximal left ureter N20.1 Hydroureteronephrosis N13.30 Pseudotumor G93.2 Hypokalemia E87.6 Essential (primary) hypertension I10 UTI (urinary tract infection) N39.0 Morbid obesity with BMI of 45.0-49.9, adult E66.01; Z68.42
--- NOTE | 2022-08-19 12:52 | Electrocardiogram Report ---
Test Reason : Blood Pressure : / mmHG Vent. Rate : 068 BPM Atrial Rate : 068 BPM P-R Int : 154 ms QRS Dur : 096 ms QT Int : 414 ms P-R-T Axes : 039 038 016 degrees QTc Int : 440 ms Normal sinus rhythm Low voltage QRS Borderline ECG When compared with ECG of 24-JUN-2011 20:37, No significant change was found Confirmed by John Brandon ([id number]) on 08/19/2022 12:51:52 PM Referred By: REFERRED SELF Confirmed By:John Brandon
[2022-08-19] MEDS ORDERED: ATROPINE SULFATE 0.1 MG/ML 10ML SYR IV PRN (12:54)
[2022-08-19] MEDS ORDERED: ePHEDrine sulfate 50 MG/ML AMP IV PRN (12:54)
[2022-08-19] MEDS ORDERED: ONDANSETRON INJ 2 MG/ML 2 ML VIAL IV PRN (12:54)
[2022-08-19] MEDS ORDERED: fentaNYL citrate 100 MCG/2 ML VIAL IV PRN (12:54)
--- NOTE | 2022-08-19 12:54 | Anesthesiology Consultation ---
Date of Service August 19, 2022 Assessment & Plan (1) Encounter for pre-operative examination: Chart Review Chart Review: Acceptable Risk for Surgery and Patient NOT seen in Pre Admission Testing Consults Requested none History Surgery Operation Date: 08/19/22 12:55 Proposed Procedures p Cystoscopy Left Stent Placement - Truong Fountain MD Height/Weight Height: 5 ft 2 in Weight: 112.6 kg Allergies Allergy/AdvReac Type Severity Reaction Status Date / Time bee venom protein (honey bee) Allergy Severe ANAPHYLAXIS Verified 08/18/22 21:13 A CHILD Medications Home Medications Medication Instructions Recorded Confirmed Last Taken cetirizine 10 mg tablet (Zyrtec) 10 mg PO QAM 04/29/18 08/18/22 12/30/19 tamsulosin 0.4 mg capsule (Flomax) 0.4 mg PO DAILY PRN kidney stones 07/15/19 08/18/22 07/15/19 ibuprofen 200 mg tablet 200 mg PO Q6H PRN Pain 12/30/19 08/18/22 12/30/19 07:00 1000 mg ondansetron 4 mg disintegrating 4 mg PO Q6H PRN nausea and 12/31/19 08/18/22 Unknown tablet vomiting #20 tabs potassium chloride 20 mEq 60 meq PO AMPM #60 tabs 04/15/22 08/18/22 Unknown tablet,extended release(part/cryst) (Klor-Con M) acetazolamide 500 mg 500 mg PO BID #60 caps 06/26/22 08/18/22 Unknown capsule,extended release hydrochlorothiazide 25 mg tablet 25 mg PO DAILY #90 tabs 07/17/22 08/18/22 U nknown Active Medications Generic Name Dose Route Start Last Admin Trade Name Freq PRN Reason Stop Dose Admin Acetazolamide 500 mg 08/18/22 23:40 08/19/22 08:25 Acetazolamide 500 Mg Capcr PO 09/17/22 23:39 500 mg BID AUDREY Administration Hydrochlorothiazide 25 mg 08/19/22 09:00 08/19/22 09:03 Hydrochlorothiazide 25 Mg Tab PO 09/18/22 08:59 Not Given DAILY AUDREY Sodium Chloride 1,000 mls @ 100 mls/hr 08/18/22 23:40 08/19/22 09:05 Nss 1000ml IV 08/20/22 05:39 100 mls/hr .Q10H AUDREY Administration Piperacillin Sod/Tazobactam 115 mls @ 28.75 mls/hr 08/19/22 06:00 08/19/22 09:03 Sod 3.375 gm/ Dextrose IV 08/29/22 05:59 Infused Q8H AUDREY Infusion Protocol Ketorolac Tromethamine 15 mg 08/18/22 23:40 08/19/22 08:25 Ketorolac Tromethamine 15 Mg/Ml Vial IM 08/23/22 23:39 15 mg Q6H PRN Administration moderate pain Morphine Sulfate 2 mg 08/18/22 23:40 08/19/22 05:31 Morphine Sulfate 2 Mg/Ml Carp IV 09/01/22 23:39 2 mg Q3H PRN Administration Severe Pain Ondansetron HCl 4 mg 08/18/22 23:40 08/19/22 08:24 Ondansetron Inj 2 Mg/Ml 2 Ml Vial IV 09/17/22 23:39 4 mg Q6H PRN Administration Nausea And Vomiting Potassium Chloride 40 meq 08/19/22 09:00 08/19/22 09:04 Potassium Chloride Crtab 20 Meq Tabcr PO 08/19/22 21:01 40 meq TID AUDREY Administration Past Medical History Medical History Essential (primary) hypertension Hypokalemia Kidney stone Pseudotumor Past Family History Family History Mother Lung cancer age 42 Father Parkinson disease Denies family history of Ovarian cancer Prostate cancer Kidney stone Myocardial infarction Breast cancer Colorectal cancer Past Surgical History Surgical History H/O section History of cholecystectomy S/P ureteral stent placement Social History Smoking Status: Never smoker Hx Alcohol Use: No Hx Substance Use: No substance use type: does not use Physical Exam Vital Signs Last Vital Signs Temp 98.1 F 08/19/22 12:00 Pulse 73 08/19/22 12:00 Resp 18 08/19/22 12:00 BP 119/77 08/19/22 12:00 Pulse Ox 93 08/19/22 12:00 O2 Del Method 08/19/22 12:00 Testing Laboratory Results 08/19/22 06:18 08/19/22 06:18 Urine Color Yellow 08/18/22 18:00 Urine Appearance Clear (Clear) 08/18/22 18:00 Urine pH 6.5 (4.5-7.5) 08/18/22 18:00 Ur Specific [place] > 1.045 (1.000-1.030) H 08/18/22 18:00 Urine Protein Negative (Negative) 08/18/22 18:00 Urine Glucose (UA) Negative (Negative) 08/18/22 18:00 Urine Ketones Negative (Negative) 08/18/22 18:00 Urine Nitrite Negative (Negative) 08/18/22 18:00 Ur Leukocyte Esterase Negative (Negative) 08/18/22 18:00 Urine WBC (Auto) 1-5 /hpf (0-5) 08/18/22 18:00 Urine RBC (Auto) 10-30 /hpf (0-4) H 08/18/22 18:00 U Hyaline Cast (Auto) 1-5 /lpf (0-5) 08/18/22 18:00 U Epithel Cells (Auto) 20-30 /lpf (0-5) H 08/18/22 18:00 Urine Bacteria (Auto) Negative (Negative) 08/18/22 18:00 08/18/22 18:00 POC Ur Test NEG
--- NOTE | 2022-08-19 13:52 | Operative Report ---
PG Post Operative Report Pre & Post Diagnosis Operation Date: 08/19/22 12:55 Pre-Op Diagnosis: Left ureteral stone Post-Op Diagnosis: Left ureteral stone I identified the patient and participated in the time-out.: Yes Procedure Operation Date: 08/19/22 12:55 Actual Procedures p Cystoscopy Left Stent Placement(Left) - Truong Fountain MD Surgeon Truong Fountain MD Mechanic Foreman None Estimated Blood Loss 0 Findings See Below Successful left ureteral stent placement. Turbid urine from the left kidney collected and sent for culture. Specimens Urine from left kidney for culture Drains 6 Japanese by 24 cm double-J ureteral stent in the left ureter Anesthesia Type MAC Complications none Disposition Accompanied Patient To Recovery: Yes Disposition: Recovery Room Indications This is a 41-year-old female who presented to the emergency department with left-sided flank pain. This was associated with nausea and vomiting. CT scan identified a 9 mm stone in the proximal left ureter with hydronephrosis on the left side. She is brought to the OR today for left ureteral stent placement to decompress the kidney and help with her pain. Description of Procedure The patient was identified and informed consent was confirmed. She was marked on the left side, then was taken to the operating room where anesthesia was initiated. She was placed in the dorsal lithotomy position with all pressure points appropriately padded. She was prepped and draped in the usual sterile fashion and a preoperative timeout was performed. A well-lubricated cystoscope was inserted per urethra and panendoscopy was performed. The urethra was normal in appearance. The bladder was of normal size with ureteral orifices in orthotopic position. No tumors or stones were appreciated. The left ureteral orifice was identified and cannulated with a 5 Japanese open- ended catheter. A retrograde pyelogram was performed demonstrating the ureter was normal in course and caliber. There was some limitation to flow of contrast up into the kidney. A 0.038" ZIPwire was advanced to the level of the kidney under fluoroscopic guidance. Over the wire, a 6 Japanese x 24 centimeter double-J ureteral stent was advanced. When the wire was removed, the proximal curl was visualized in the kidney with x-ray, and the distal curl visualized in the bladder with the cystoscope. There was drainage of turbid urine from the left kidney down to the bladder through and alongside the stent. A sample of this was collected and sent for culture. At this point the bladder was drained and all instrumentation was removed. The patient was then awakened from anesthesia and was brought to the PACU in stable condition. I attest to the content of the Intraoperative Record and any orders documented therein. Any exceptions are noted below.
[2022-08-19] MEDS ORDERED: DIATRIZOATE MEGLUMINE 30% 100ML VIAL INSTIL ONE (14:01)
--- NOTE | 2022-08-19 14:02 | Anesthesiology Progress Note ---
Date of Service August 19, 2022 Anesthesia Post Procedure Vital Signs Vital Signs: Temp Pulse Pulse Pulse Resp BP BP 08/19/22 13:04 98.4 F 70 20 08/19/22 12:00 98.1 F 73 18 119/77 08/19/22 08:19 98.1 F 70 20 08/19/22 03:59 89 08/19/22 03:22 98.4 F 88 18 08/19/22 00:05 08/19/22 00:05 98.2 F 92 H 18 08/18/22 22:23 73 18 08/18/22 19:25 79 20 08/18/22 16:55 97.7 F 84 18 154/90 H BP Pulse Ox O2 Del Method 08/19/22 13:04 138/89 97 Room Air 08/19/22 12:00 93 Room Air 08/19/22 08:19 154/96 H 95 Room Air 08/19/22 03:59 08/19/22 03:22 121/74 93 Room Air 08/19/22 00:05 Room Air 08/19/22 00:05 155/100 H 94 Room Air 08/18/22 22:23 129/62 94 Room Air 08/18/22 19:25 139/82 96 Room Air 08/18/22 16:55 97 Room Air Pain Intensity Flank: Pain Intensity: 4 Transfer of Care Handoff Completed per policy Notes Mental Status: alert / awake / arousable and participated in evaluation Patient Amnestic to Procedure: Yes Nausea / Vomiting: adequately controlled Pain: adequately controlled Airway Patency, RR, SpO2: stable & adequate BP & HR: stable & adequate Hydration State: stable & adequate Anesthetic Complications: no major complications apparent and Pt Satisfied with anesthetic care
--- NOTE | 2022-08-19 14:20 | Fluoroscopy Report ---
FL retrograde includes kub CLINICAL HISTORY: LT STENT COMPARISON STUDY: CT of the abdomen and pelvis August 18, 2022. FLUOROSCOPY TIME: 5.6 seconds. FLUOROSCOPIC IMAGES: 1 FINDINGS: Fluoroscopy was provided during left ureteral stent placement. The proximal aspect of the l eft ureteral stent projects over the left renal pelvis. IMPRESSION: Fluoroscopy provided during left ureteral stent insertion. ACT 112: Negative or not required by law. Electronically signed by: Cristhian Beard M.D. 08/19/2022 2:18 PM
[2022-08-19] MEDS: PHENAZOPYRIDINE HCL 100 MG TAB PO PRN (22:11)
[2022-08-20] MEDS: PIPERACILLIN/TAZOBACTAM 3.375 GM in DEXTROSE 5% 100 ML IV SCH (04:43)
--- NOTE | 2022-08-20 05:41 | Billing Data ---
Date of Service August 20, 2022 Coding Level of Care Code 41259 INT INP/OBS CARE
[2022-08-20] MEDS: PHENAZOPYRIDINE HCL 100 MG TAB PO PRN (07:28)
[2022-08-20] MEDS: acetaZOLAMIDE 500 MG CAPCR PO SCH (07:28)
[2022-08-20] MEDS: hydroCHLOROthiazide 25 MG TAB PO SCH ×2 (07:29→09:52)
--- NOTE | 2022-08-20 08:14 | Urology Progress Note ---
Date of Service August 20, 2022 Assessment & Plan (1) Calculus of proximal left ureter: (2) S/P ureteral stent placement: Plan: - Pt POD#1 s/p cystoscopy and left ureteral stent placement. - Doing well, progressing as expected. Patient stayed overnight due to low p otassium. - Afebrile, AM labs pending. - Tolerating left ureteral stent with mild bother. - Okay to d/c from perspective when medically stable. - Recommend d/c with course of PO antibiotics, Tamsulosin, prn Pyridium and Oxybutynin for stent management. - Expected clinical course reviewed, all questions answered. - Will arrange outpatient follow-up with our service for definitive stone management. Admission and Anticipated Discharge Date Admission Date: August 18, 2022 Subjective Patient seen and examined at bedside this morning. She is awake and sitting up in bed eating breakfast. Patient stayed overnight due to low potassium of 2.9. No acute issues overnight. Voiding spontaneously. She reports mild dysuria as well as urinary urgency and "vaginal pressure" since stent placement. No flank or abdominal pain. No fever or chills. No nausea or vomiting. Review of Systems Constitutional: as per Subjective / HPI Gastrointestinal: as per Subjective / HPI Genitourinary: as per Subjective / HPI Physical Exam Constitutional: well developed, well nourished and + obese; no acute distress and not ill appearing Respiratory: normal respiratory effort; no respiratory distress and no labored breathing Cardiovascular: Extremities: no pedal edema Gastrointestinal (Abdomen): Inspection/Auscultation: abdomen normal to inspection; abdomen not distended Musculoskeletal: Extremities: extremities normal to inspection Neurologic: moves all extremities and awake Psychiatric: Orientation: alert and oriented x 3 Results & Data ([facility]) Vital Signs (Past 12 Hours) Vital Signs Temp Pulse Pulse Resp BP Pulse Ox O2 Del Method 08/20/22 07:00 36.6 C 71 20 129/80 97 Room Air 08/20/22 03:00 Room Air 08/20/22 02:46 36.6 C 75 18 125/85 92 Room Air 08/19/22 23:47 79 08/19/22 22:46 36.9 C 77 16 113/70 96 Room Air 08/19/22 20:15 36.9 C 80 18 157/88 H 97 Room Air PG Care Time/CCT Total # of Minutes Spent Total Time Spent with Patient: Total time spent is greater than 50% in coordination of care (as documented) at patient's floor/unit and/or counseling patient: Coding Level of Care Code 22045 SUB INP/OBS CARE 2/35MIN Diagnoses Calculus of proximal left ureter N20.1 S/P ureteral stent placement Z96.0
[2022-08-20 08:39] LABS: Basophils # (auto) 0.07 K/uL (0-0.2); Basophils % (auto) 0.8 %; Eosinophils # (auto) 0.19 K/uL (0-0.50); Eosinophils % (auto) 2.1 %; Hematocrit (blood only) 39.5 % (34.1-44.9); Hemoglobin 13.7 g/dl (12.0-16.0); Immature Granulocytes # (auto) 0.08 K/uL (0.00-0.02); Immature Granulocytes % (auto) 0.9 %; Lymphocytes # (auto) 1.99 K/uL (1.2-3.4); Mean Corpuscular Hemoglobin 31.9 pg (25.0-34.0); Mean Corpuscular Hgb Conc 34.7 g/dL (32.0-36.0); Mean Corpuscular Volume 92.1 fL (80.0-100.0); Mean Platelet Volume 9.6 fL (9.4-12.3); Monocytes # (auto) 0.66 K/uL (0.24-0.82); Monocytes % (auto) 7.3 %; Neutrophils # (auto) 6.04 K/uL (1.4-6.5); Neutrophils % (auto) 66.9 %; Platelet Count 236 K/uL (130-400); RDW Coefficient of Variation 13.2 % (11.5-14.5); RDW Standard Deviation 43.1 fL (36.4-46.3); Red Blood Count 4.29 M/uL (3.93-5.22); White Blood Count 9.03 K/ul (4.8-10.8)
[2022-08-20] MEDS ORDERED: ADVANCED PROBIOTIC 1250 MG CAPSULE PO SCH (09:00)
[2022-08-20 09:25] LABS: BUN Creatinine Ratio 13.3 (10-20); Creatinine Clr Calc Pharmacy 117.2 ml/min; Est GFR (African American) 113.9 ml/min; Est GFR (Non-African American) 98.3 ml/min; Potassium 3.9 mmol/L (3.5-5.1)
[2022-08-20] MEDS ORDERED: TAMSULOSIN HCL 0.4 MG CAP PO ONE (09:50)
[2022-08-20] MEDS ORDERED: cefTRIAXone SODIUM 2,000 MG in DEXTROSE 5% 50 ML IV SCH (10:00)
--- NOTE | 2022-08-20 12:01 | Discharge Summary ---
Date of Service date of admission - August 18, 2022 date of discharge - August 20, 2022 Admission HPI Per Admitting Provider Fernanda is a 41 year old female with PmHx kidney stones, hypertension, pseudotumor cerebri who presents to the ED for 1 day of L sided abdominal pain and nausea/vomiting. Patient has a past history of kidney stones going back to 2018 when she had a kidney stone that required a stent. She said that she did not have any kidney stones prior to 2018 and that since then she has had stones that she has been able to pass on her own, only needing to come to the ED 2 times since initial visit in 2018. She state that she has since had kidney stones every 4-6 months and they may come as 1-2 per month at a time when they come. She saw her PCP in early July and was started on hydrochlorothiazide for blood pressure in addition to her metoprolol tartrate 50mg daily. Yesterday she started to develop back pain at the left that radiated towards the lateral abdomen along with lower abdominal cramping, as well as frequent vomiting throughout the day and night. She knew at that point the kidney stone was bad enough for her to go to the ED and so she arrived earlier today. Patient denies any burning with urination, hematuria, and states her urine has been clear. D enies any fevers, chills, shortness of breath, chest pain, headaches. Patient states she used to see Dr. Alegre at [facility] urology in the past for kidney stones and that she was told the consistency of her stones was some sort of calcium composite. She states she was no longer able to see [facility] due to them not accepting [facility] insurance. She does not currently have any stent in place and hasn't had one in place for years as she says the last time she had one after a few days she could barely move due to pain and needed it taken out. She states she currently is in between jobs, quit her job on the at [employer] and will start work at her next job starting Thursday, so she is currently without insurance. In the ED she was found to have a WBC 17.19, neutrophil 15.33, BUN/Creat 15/0.79 , POC test negative, U/A positive for 2+ blood, 10-30 RBC, negative for WBC, nitrates, or bacteria. CT A&P revealed L Hydroureteronephrosis, 9mm stone, heterogeneously diminished enhancement of L kidney compared to right. She was given 15mg Toradol and 4mg morphine for pain, 4mg zofran and 12.5mg Phenergan for nausea, as well as a 500cc bolus. Principal Diagnosis 1. Obstructing 9mm left-sided kidney stone s/p ureteral stent 2. Likely UTI 3. Hypokalemia Discharge Exam gen - obese, NAD, comfortable mouth - MMM neck - no JVD heart - RRR, s1 s2, no murmur lungs - CTA b/l abd - no flank tenderness to palpation on left, soft, anterior abdomen without tenderness, BS+, ND ext - no edema, pulses 2+ b/l Discharge Data Allergies Allergy/AdvReac Type Severity Reaction Status Date / Time bee venom protein (honey bee) Allergy Severe ANAPHYLAXIS Verified 08/26/22 08:27 A CHILD Consultations [facility] - Truong Fountain MD Procedures Performed Operation Date: 08/19/22 12:55 Actual Procedures Cystoscopy Left Stent Placement - Truong Fountain MD Ordered Studies Abdomen/Pelvis CT 08/18/22 17:28 CT SCAN OF THE ABDOMEN AND PELVIS WITH IV CONTRAST CLINICAL HISTORY: Flank pain COMPARISON STUDY: Abdominal CT dated 12/30/2019. TECHNIQUE: Following the IV administration of 80 cc of Optiray 350, CT scan of the abdomen and pelvis is performed from the lung bases to the proximal femora. Images are reviewed in the axial, sagittal, and coronal planes. IV contrast was administered without complication. A dose lowering technique was utilized adhering to the principles of ALARA. CT DOSE: 1280.01 mGycm FINDINGS: Lung bases: The heart is normal in size and without pericardial effusion. The lung bases are clear. A small hiatal hernia is noted. Liver: The contrast-enhanced liver is mildly enlarged measuring over 18 cm in length. The liver demonstrates diminished attenuation indicating steatosis. There is mild central intrahepatic biliary ductal dilatation. The hepatic veins and portal veins are patent. Gallbladder: Surgically absent noting clips in the gallbladder fossa. Spleen: Normal in size and attenuation. Pancreas: Unremarkable. Adrenal glands: Unremarkable. Kidneys: The contrast enhanced kidneys are normal in size. There is a 9 mm obstructing calculus in the mid left ureter seen on axial image #274. This is located at the level of L4-L5 and causes moderate left hydroureteronephrosis. There is associated left-sided perinephric and perienteric stranding/trace fluid. No additional left renal calculi are clearly identified on this contrast-enhanced examination. There are at least 2 small nonobstructing right renal calculi which measure up to 3 mm. There is no right ureteral stone or right-sided hydronephrosis. There is heterogeneously diminished enhancement of the left kidney as compared to the right. Abdominal vasculature: The abdominal aorta is normal in course and caliber. Bowel: There is mild colonic diverticulosis without CT evidence of acute diverticulitis. No bowel obstruction is seen. The appendix is well-visualized and normal. Peritoneum: There is no intraperitoneal free air or abdominal ascites. There is a small fat-containing umbilical hernia. Lymphadenopathy: None. Pelvic viscera: The bladder, uterus, and adnexa are normal as visualized. Skeletal structures: No lytic or blastic lesions are seen. Sclerotic changes noted in the sacroiliac joints. IMPRESSION: 1. There is a 9 mm obstructing calculus in the mid left ureter. This causes moderate left hydroureteronephrosis. 2. There is heterogeneously diminished enhancement of the left kidney as compared to the right, likely related to obstruction/hydronephrosis. Correlate with clinical findings and urinalysis for evidence of superimposed urinary tract infection. 3. Additional tiny nonobstructing stones are seen in the right kidney. 4. The liver is enlarged and mildly steatotic. 5. Additional findings as above. ACT 112: Negative or not required by law. Electronically signed by: Attila Tian M.D. 08/18/2022 6:52 PM Retrograde Pyelogram 08/19/22 12:30 FL retrograde includes kub CLINICAL HISTORY: LT STENT COMPARISON STUDY: CT of the abdomen and pelvis August 18, 2022. FLUOROSCOPY TIME: 5.6 seconds. FLUOROSCOPIC IMAGES: 1 FINDINGS: Fluoroscopy was provided during left ureteral stent placement. The proximal aspect of the left ureteral stent projects over the left renal pelvis. IMPRESSION: Fluoroscopy provided during left ureteral stent insertion. ACT 112: Negative or not required by law. Electronically signed by: Cristhian Beard M.D. 08/19/2022 2:18 PM Hospital Course (1) Calculus of proximal left ureter: 9mm, left ureter. The patient underwent L ureteral stent placement by Dr Truong Fountain, [facility]. There was suspicion of UTI and she received IV antibiotics for such. She will undergo definitive stone treatment and ultimately stent retrieval post- discharge, likely within 2 weeks. She will complete a course of antibiotics at discharge. She will continue on flomax. Oxybutinin, pyridium, and zofran were provided for prn use. (2) Hydroureteronephrosis: 2nd to #1, s/p stent placement on left. (3) Pseudotumor: cont diamox 500mg BID no headaches at this time (4) Hypokalemia: 2nd to combination of both HCTZ + diamox use? Was taking large quantities of K supplementation chronically (120meq daily). Renin/aldosterone levels were dispatched to rule out hyperaldosteronism; results were pending at discharge. Lowest K level was 2.9, improving to 3.9 at discharge. She received IV and PO replacement. Magnesium level was normal. HCTZ was discontinued (had been prescribed for both HTN treatment and prevention of calcium-based kidney stones) due to the severity of her hypokalemia. Potassium supplementation was reduced by 1/2 to 60meq daily. She will need a repeat BMP within 5-7 days of discharge to ensure stability. (5) Essential (primary) hypertension: Both diamox (for #3) and flomax (for #1) will provide BP control. She may need a substitute anti-hypertensive. Close f/u with PCP is needed. (6) UTI (urinary tract infection): Received IV antibiotics while here. Urine cx x 2 were pending at time of discharge. She will complete a course of omnicef 300mg BID x 7 days post-discharge. (7) Morbid obesity with BMI of 45.0-49.9, adult: BMI 45/46 Total Time Total Time Spent Total Time Spent (In Minutes): 40 Discharge Plan Discharge Items Patient Disposition: Home - Self-Care Reason For Visit: Left-sided 9mm kidney stone Discharge Diagnosis: Left-sided 9mm kidney stone - placement of stent Condition on Discharge: Good Activity: As commented below Activity Comment: no heavy lifting over 15 pounds; no heavy exertional activities Sexual Activity: Wait until after follow-up appointment Exercise/Sports: Wait until after follow-up appointment Non-emergency contact: Primary Care Provider and Urologist Call non-emergency contact if: you have any medication questions, your symptoms worsen, your pain is not controlled, your pain is worsening and you have a fever Follow-up/Referrals: Shine Bellamy DO [Primary Care Provider] - 08/28/22 2:00 pm (1-2 weeks for high blood pressure follow-up, labs (potassium), etc ) Truong Fountain MD [Physician] - 08/27/22 10:00 am (1 week for stone and stent management ) Diet: Regular Ambulatory Orders: Basic Metabolic Panel (Routine) Timeframe: [id number] Location: Determined by Patient Ordered By: Greg Carrillo Attending Provider Instructions: Mrs Laurent, You were hospitalized for a 9mm left-sided kidney stone that had traveled into the left ureter. In [facility] saw you in consult and recommended stent placement in the left ureter. This was placed on 08/19/22. There is suspicion for urinary tract infection and you received several days of IV antibiotics for such. Urine culture is still pending at time of discharge. During your stay your potassium level was low; you required IV and oral supplementation for this. Recommendations: 1. antibiotics - cefdinir 300mg twice daily x 7 days, first dose AM of 08/21/22. 2. probiotics - take daily for 7 days; start 08/21/22. This may prevent diarrhea from your antibiotics. 3. for stent pain - * take tamsulosin 0.4mg each day in the morning, first dose 08/21/22. 4. for bladder pain/urinary pain/burning - * phenazopyridine 100mg every 8 hours as needed for pain * this medication will cause your urine to look orange; it will also cause your tears to be orange 5. for bladder pain/spasm - * oxybutinin 5mg every 12 hours as needed * common side effects - dry mouth, dry eyes, constipation 6. for pain in general - * tylenol 1000mg every 6 hours as needed, max 3000mg in 24 hours * ibuprofen 400mg every 6-8 hours as needed; take with food 7. please DISCONTINUE your hydrochlorothiazide at this time. 8. please LOWER your potassium supplement to 60meq ONCE DAILY for now. 9. please have your potassium rechecked with a blood draw on August 25. You can go to the [facility] office for this. 10. light activities only until you have your stone and stent managed by urology. Follow-up - see separate section Return to [facility] if - * you have fevers over 100 degrees * you are seeing LARGE amounts of blood in the urine * you have uncontrolled pain * you have uncontrollable vomiting/nausea * you have inability to pass your urine * any other concerns It was our pleasure to care for you at [facility]! Dr Palma Boothtl Medical Assistant Prn Provider Instructions: The surgery you had was ureteral stent placement. If you are having discomfort from your stent, it is ok to take [id number] tylenol alternating with ibuprofen. The stent will need to be removed. If you still have a kidney stone in place, we will make sure this is treated prior to stent removal. As long as the stent is in place, you may see some blood in the urine. You may have pain in your side when you urinate. The urology office will call you within a couple days of discharge to arrange further stone management. If you have not heard from us after 2 days, you can call the office at [phone]: Pending Studies at Discharge: Yes Studies:: urine culture Stand-Alone Forms: My [facility], Smoking Cessation Medications and DC Order Prescriptions: New cefdinir 300 mg capsule 300 mg PO BID Qty: 14 0RF Rx Instructions: WILL FINISH TOMORROW oxybutynin chloride 5 mg tablet 5 mg PO BID PRN (Reason: bladder spasms/bladder pain) Qty: 14 0RF Continued acetazolamide 500 mg capsule, extended release 500 mg PO BID Qty: 60 1RF cetirizine [Zyrtec] 10 mg Tablet 10 mg PO QAM ibuprofen 200 mg Tablet 200 mg PO Q6H PRN (Reason: Pain) ondansetron 4 mg tablet,disintegrating 4 mg PO Q6H PRN (Reason: nausea and vomiting) Qty: 20 0RF Changed tamsulosin [Flomax] 0.4 mg Capsule 0.4 mg PO DAILY Qty: 30 0RF Rx Instructions: start AM of 08/21/22. Discontinued potassium chloride [Klor-Con M20] 20 mEq tablet,ER particles/crystals 60 meq PO AMPM Qty: 60 1RF hydrochlorothiazide 25 mg tablet 25 mg PO DAILY Qty: 90 1RF No Action potassium chloride [Klor-Con M20] 20 mEq tablet,ER particles/crystals 40 meq PO DAILY Discharge Orders: Discharge Order (Routine); Ordered 08/20/22 Ordered By: Greg Copeland/Other Patient Handouts: Having a Ureteral Stent, Understanding Kidney Stones Admission Data Admit Date/Time: 08/18/22 20:51 Attending Provider: Greg Waldrop Admit Provider: Rudolph Horn Primary Care Provider: Shine Bellamy Other Providers: Gabriel Dalal ; Truong Fountain Other Interventions: Discharge Summary Assessment (RN) Last Done: 08/20/22 12:05 Coding Level of Care Code HOSP INP/OBS DISCH >30 MIN Diagnoses Calculus of proximal left ureter N20.1 Hydroureteronephrosis N13.30 Pseudotumor G93.2 Hypokalemia E87.6 Essential (primary) hypertension I10 UTI (urinary tract infection) N39.0 Morbid obesity with BMI of 45.0-49.9, adult E66.01; Z68.42
[2022-08-21] MEDS ORDERED: TAMSULOSIN HCL 0.4 MG CAP PO SCH (09:00)
== END 2022-08-20 12:34 | disposition home or self-care (01) | DRG 660 ==
LOC: ED 16:47 → SUATTDRO 20:51 → 2N 20:51

== ENCOUNTER 2023-03-17 16:49 | Inpatient (IN) ==
[2023-03-17] MEDS ORDERED: KETOROLAC TROMETHAMINE 15 MG/ML VIAL IV STA (17:42)
[2023-03-17] MEDS ORDERED: SODIUM CHLORIDE 0.9% 1000ML 1,000 ML IV ONE ×2 (17:42→18:18)
--- NOTE | 2023-03-17 17:49 | ED Triage Note ---
Date of Service March 17, 2023 History of Present Illness This patient was briefly evaluated while in triage. An abbreviated physical exam was performed. This patient is a 42-year-old Female who presents to the ED for evaluation of ongoing R flank pain concerned about dehydration. 2 R renal calculi diagnosed on 03/15. Has been taking zofran and pain medication without relief. Physical Exam CONSTITUTIONAL: Ill appearing nontoxic SKIN: pink, warm, dry CARDIAC: tachycardic rate and regular rhythm RESPIRATORY: in no respiratory distress, lungs clear to auscultation Initial orders for labs and / or imaging were placed and patient was placed in the waiting area until a bed is available. Please see further documentation for the full ED course.
--- NOTE | 2023-03-17 18:12 | XRay Report ---
KUB HISTORY: Follow-up study in a patient with right nephrolithiasis. [address] on CT COMPARISON: CT 03/16/2023 FINDINGS: Cholecystectomy. Nonobstructive bowel gas pattern. Unchanged positioning of the irregular 8 mm right ureteral calcification(s) at the level of L4. Renal shadows are partially obscured by jacobo l gas. The patient's bilateral nephrolithiasis are not visualized. No pneumoperitoneum or pneumatosis . No fracture. IMPRESSION: 1.Unchanged positioning of the irregular 8 mm right ureteral calcification(s) at the level of L4. Thi s may represent a single irregular ureteral calculus versus two adjacent calculi measuring up to 5 mm individually. 2. The patient's known bilateral nephrolithiasis are obscured by bowel gas. 3. Cholecystectomy. ACT 112: Negative or not required by law. The above report was generated using voice recognition software. It may contain grammatical, syntax o r spelling errors. Electronically signed by: Ricahrd Graf M.D. 03/17/2023 6:09 PM
[2023-03-17] MEDS ORDERED: fentaNYL citrate PF 100 MCG/2 ML VIAL IV STA (18:40)
[2023-03-17] MEDS ORDERED: ONDANSETRON INJ 2 MG/ML 2 ML VIAL IV STA (18:40)
--- NOTE | 2023-03-17 18:45 | Emergency Department Note ---
Impression & Plan Sepsis, Acute right flank pain, Calculus of right ureter ED Provider Note HISTORY OF PRESENT ILLNESS: Patient is a 42-year-old female presenting with right flank pain. Patient was seen 2 days ago in the emergency department and diagnosed with two 5 mm kidney stones. She reports has been taking Zofran and pain medications at home without any relief of symptoms. Reports the flank pain is getting progressively worse. She has had decreased urinary output and multiple episodes of vomiting today. She is concerned she is dehydrated. Denies any notable fevers at home, but does report having rigors since this afternoon. Denies any dysuria or hematuria in the last 48 hours. Patient reports multiple kidney stones in the past that required surgical intervention. She reports previous lithotripsy 8 months ago ROS: as above PHYSICAL EXAM: Constitutional: Patient appears in no acute distress. HENT: Head: Normocephalic and atraumatic. Eyes: EOMI, PERRL Mouth/Throat: Mucous membranes moist. Neck: Trachea midline. Neck supple. Cardiovascular: Tachycardic with regular rhythm. No murmurs, rubs or gallops. Intact distal pulses. Pulmonary/Chest: No respiratory distress. Breath sounds clear and equal bilaterally. No wheezes or rales. Abdominal: Abdomen soft, no tenderness, rebound or guarding. Back: No midline spinal tenderness, no paraspinal tenderness. Right CVA TTP. Musculoskeletal: No edema, tenderness or deformity noted. Skin: Warm and dry. No rash, erythema, pallor or cyanosis Neurological: Alert and keenly responsive. CN II-XII grossly intact, moving all extremities equally and fully. MDM: - Vitals signs showed fever and tachycardia. - History obtained via patient. Patient presents with right flank pain. Pain has been progressively worsening since she was evaluated in the emergency department 2 days ago. She reports taking nausea and pain medications at home without any relief. She reports today she has been unable to tolerate oral intake secondary to recurrent episodes of vomiting. Denies any notable fevers at home but reports having rigors earlier today. She has a history of recurrent kidney stones that require surgical intervention. Reports she had decreased urinary output today secondary to dehydration. - Chronic conditions affecting care: HTN; recurrent nephrolithiasis - Differential diagnoses include, but are not limited to: UTI; infected ureteral stone; sepsis - Order placed for continuous cardiac monitoring. At this time, monitor showed rate of 125 bpm with normal sinus rhythm, per my interpretation. - External medical records reviewed. CT imaging from 03/15/2023 showed 2 p roximal right ureteral stones measuring up to 0.5 cm. - Laboratory workup interpreted by myself showed normal WBC; hypokalemia (K 2.9); normal creatinine (1.15); normal lipase; elevated procalcitonin (35.51) - Xray abdomen shows right ureteral stone, per my interpretation - Patient ordered IV rocephin for antibiotic coverage, but hospitalist changed to IV cefepime. - Patient given 1g IV tylenol, 50 mcg IV fentanyl, 15 mg IV toradol and 4 mg IV zofran for symptomatic management. - Discussed case with urologist bath design sales consultant, Dr. Yanes. Plans for OR. - Discussed case with social service coordinator and need for admission. - Discussed case with hospitlaist, Dr. Ricardo, for admission. - [facility] 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 CURRENTLY/PCP MONITORS UTI (urinary tract infection) Surgical History H/O section X 1 History of cholecystectomy History of cystoscopy History of myringotomy S/P ureteral stent placement [place] teeth removed Family History Mother Lung cancer age 42 Father Parkinson disease Other No family history of adverse response to anesthesia Denies family history of Ovarian cancer Prostate cancer Kidney stone Myocardial infarction Breast cancer Colorectal cancer Social History Smoking Status: Never smoker Age Quit Using Tobacco: 26; packs per day: 1; Second Hand Exposure: Yes ( A CHILD); Do You Dip or Chew Tobacco: No; Hx Alcohol Use: Yes Hx Substance Use: No Preferred Language: Maltese Communication Ability: Effective Visual Impairment: No Limitations Hearing Ability: Normal Die Mounter Required: No Beliefs That Will Affect Care: None marital status: Current Living Situation: Family Current Living Situation Comment: AND SON current occupational status: employed 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[employer] [facility] How many Children do You have: 1 other: 1 son - age 12 Feels Safe at Home: Yes Childhood Exposure to Second-Hand Smoke: Yes Diet: regular Diet Comment: regular caffeine: Yes during the past year weight has: remained stable Dental Care, Regularly: Yes Physical Activity Frequency: Daily Seatbelt Use: sometimes Sunscreen Use: Yes Assistive Devices: Contacts and Glasses Allergies Allergies Allergy/AdvReac Type Severity Reaction Status Date / Time bee venom protein (honey bee) Allergy Severe ANAPHYLAXIS Verified 03/16/23 00:04 A CHILD Home Meds Home Medications Medication Instructions Recorded Confirmed cetirizine 10 mg tablet (Zyrtec) 10 mg PO QAM 04/29/18 03/17/23 ibuprofen 200 mg tablet 200 mg PO Q6H PRN Pain 12/30/19 03/17/23 potassium chloride 20 mEq 60 meq PO BID 08/26/22 03/17/23 tablet,extended release(part/cryst) (Klor-Con M) Lactobacil.acidophilus-Bifido.animalis 1 cap PO DAILY 03/16/23 03/17/23 5 billion cell sprinkle capsule (Probiotic) metoprolol succinate 25 mg 25 mg PO QAM 03/16/23 03/17/23 tablet,extended release 24 hr tamsulosin 0.4 mg capsule (Flomax) 0.4 mg PO DAILY PRN KIDNEY STONES 03/16/23 03/17/23 Previous Rx's Medication Instructions Recorded ondansetron 4 mg disintegrating 4 mg PO Q6H PRN nausea and 12/31/19 tablet vomiting #20 tabs acetazolamide 500 mg 500 mg PO BID #60 caps 06/26/22 capsule,extended release oxycodone-acetaminophen 5 mg-325 1 tab PO Q4H PRN pain #14 tabs 03/16/23 mg tablet (Percocet) Results & Data (ED) Vital Signs Vital Signs - 24 hr 03/17/23 17:40 03/17/23 19:15 Temperature 37.8 C H Temperature Source Oral Pulse Rate 139 H Pulse Rate [Bilateral] 104 H Pulse Rhythm Regular Respiratory Rate 20 18 Respiratory Effort / Characteristics Non-Labored Spontaneous Respiratory Depth Normal Blood Pressure 125/75 Blood Pressure [Right Arm] 91/64 L Blood Pressure Mean 91 Blood Pressure Mean [Right Arm] 73 Pulse Oximetry 97 95 Oxygen Delivery Method Room Air Room Air Sepsis Recent Fever Within 48 Hours No Sepsis New/Unexplained Change in Mental Status No Sepsis Action Taken by Nursing No Action Required Laboratory Data 03/17/23 18:55 03/17/23 18:55 Lab Results 03/17/23 03/17/23 03/17/23 Range/Units 18:55 18:55 18:55 WBC 10.55 (4.8-10.8) K/ul RBC 4.62 (4.20-5.40) M/uL Hgb 14.8 (12.0-16.0) g/dl Hct 42.5 (37.0-47.0) % MCV 92.0 (80.0-100.0) fL MCH 32.0 (25.0-34.0) pg MCHC 34.8 (32.0-36.0) g/dL RDW Std Deviation 41.8 (36.4-46.3) fL RDW Coeff of [place] 12.5 (11.5-14.5) % Plt Count 164 (130-400) K/uL MPV 9.5 (9.4-12.4) fL Immature Gran % (Auto) 0.7 % Neut % (Auto) 92.7 % Lymph % (Auto) 3.3 % [place] % (Auto) 2.9 % Eos % (Auto) 0.0 % Baso % (Auto) 0.4 % Neut # (Auto) 9.78 H (1.40-6.50) K/uL Lymph # (Auto) 0.35 L (1.2-3.4) K/uL [place] # (Auto) 0.31 (0.11-0.59) K/uL Eos # (Auto) 0.00 (0-0.50) K/uL Baso # (Auto) 0.04 (0-0.2) K/uL Immature Gran # (Auto) 0.07 (0.01-0.20) K/uL Sodium 137 (136-145) mmol/L Potassium 2.9 L (3.5-5.1) mmol/L Chloride 108 H (98-107) mmol/L Carbon Dioxide 20 L (21-32) mmol/L Anion Gap 9 (3-11) BUN 15 (6-23) mg/dl Creatinine 1.15 D (0.6-1.2) mg/dl Est Cr Clr Drug Dosing Not Reportable Est GFR ( Amer) 67.5 ml/min Est GFR (Non-Af Amer) 58.2 ml/min BUN/Creatinine Ratio 13.0 (10-20) Glucose 103 H (70-99(Fasting)) mg/dl Calcium 9.0 (8.6-10.3) mg/dl Total Bilirubin 0.9 (0.2-1.0) mg/dl AST 16 (13-39) U/L ALT 12 (7-52) U/L Alkaline Phosphatase 94 (34-104) U/L Total Protein 6.8 (6.0-8.3) gm/dl Albumin 4.0 (3.4-5.0) gm/dl Globulin 2.8 (2.5-4.0) gm/dl Albumin/Globulin Ratio 1.4 (0.9-2) Lipase 43 (11-82) U/L Procalcitonin 35.51 H (0-0.5) ng/ml Administered Medications Acetaminophen (Ofirmev) 1,000 mg in 100 mls @ 400 mls/hr IV NOW STA Stop: 03/17/23 21:06 Last Admin: 03/17/23 21:04 Dose: 400 mls/hr Documented By: DURAN Discontinued Medications Fentanyl Citrate (Fentanyl Citrate Pf 100 Mcg/2 Ml Vial) 50 mcg IV NOW STA Stop: 03/17/23 18:41 Last Admin: 03/17/23 21:03 Dose: 50 mcg Documented By: DURAN Sodium Chloride (Nss 1000ml) 1,000 mls @ 999 mls/hr IV .Q1H1M ONE Stop: 03/17/23 18:42 Last Admin: 03/17/23 19:01 Dose: Not Given Documented By: DURAN Sodium Chloride (Nss 1000ml) 1,000 mls @ 999 mls/hr IV .Q1H1M ONE Stop: 03/17/23 19:18 Last Infusion: 03/17/23 20:30 Dose: 0 mls/hr Documented By: Admin: 03/17/23 19:09 Dose: 999 mls/hr Documented By: DURAN Ceftriaxone Sodium (Rocephin) 2,000 mg in 70 mls @ 140 mls/hr IV NOW STA Stop: 03/17/23 19:46 Last Admin: 03/17/23 21:04 Dose: Not Given Documented By: DURAN Cefepime HCl (Maxipime) 2,000 mg in 20 mls @ 5 mls/min IV NOW STA; Protocol Stop: 03/17/23 20:46 Last Admin: 03/17/23 21:02 Dose: 5 mls/min Documented By: DURAN Ketorolac Tromethamine (Ketorolac Tromethamine 15 Mg/Ml Vial) 15 mg IV NOW STA Stop: 03/17/23 17:43 Last Admin: 03/17/23 19:08 Dose: 15 mg Documented By: DURAN Ondansetron HCl (Ondansetron Inj 2 Mg/Ml 2 Ml Vial) 4 mg IV NOW STA Stop: 03/17/23 18:41 Last Admin: 03/17/23 19:08 Dose: 4 mg Documented By: DURAN Potassium Chloride (Potassium Chloride Crtab 20 Meq Tabcr) 40 meq PO NOW STA Stop: 03/17/23 20:46 Last Admin: 03/17/23 21:03 Dose: 40 meq Documented By: DURAN Imaging Data Radiologist's Impression: KUB X-Ray 03/17/23 17:42 KUB HISTORY: Follow-up study in a patient with right nephrolithiasis. [address] R ure[address] stones on CT COMPARISON: CT 03/16/2023 FINDINGS: Cholecystectomy. Nonobstructive bowel gas pattern. Unchanged positioning of the irregular 8 mm right ureteral calcification(s) at the level of L4. Renal shadows are partially obscured by bowel gas. The patient's bilateral nephrolithiasis are not visualized. No pneumoperitoneum or pneumatosis. No fracture. IMPRESSION: 1.Unchanged positioning of the irregular 8 mm right ureteral calcification(s) at the level of L4. This may represent a single irregular ureteral calculus versus two adjacent calculi measuring up to 5 mm individually. 2. The patient's known bilateral nephrolithiasis are obscured by bowel gas. 3. Cholecystectomy. ACT 112: Negative or not required by law. The above report was generated using voice recognition software. It may contain grammatical, syntax or spelling errors. Electronically signed by: Richard Graf M.D. 03/17/2023 6:09 PM Discharge Plan Visit Data Chief Complaint: Flank Pain Stated Complaint: FLANK PAIN,DEHYDRATED ED Provider: Tanisha Bardales Discharge Problem: Sepsis, Acute right flank pain, Calculus of right ureter Forms Stand Alone Forms: [facility] Prescriptions Prescriptions: No Action acetazolamide 500 mg capsule, extended release 500 mg PO BID Qty: 60 1RF cetirizine [Zyrtec] 10 mg Tablet 10 mg PO QAM ibuprofen 200 mg Tablet 200 mg PO Q6H PRN (Reason: Pain) ondansetron 4 mg tablet,disintegrating 4 mg PO Q6H PRN (Reason: nausea and vomiting) Qty: 20 0RF potassium chloride [Klor-Con M20] 20 mEq tablet,ER particles/crystals 60 meq PO BID metoprolol succinate 25 mg tablet extended release 24 hr 25 mg PO QAM Probiotic 5 billion cell Capsule, Sprinkle 1 cap PO DAILY tamsulosin [Flomax] 0.4 mg capsule 0.4 mg PO DAILY PRN (Reason: KIDNEY STONES) oxycodone-acetaminophen [Percocet] 5-325 mg tablet 1 tab PO Q4H PRN (Reason: pain) Qty: 14 0RF Referrals Referrals: Shine Bellamy DO [Physician] -
[2023-03-17] MEDS ORDERED: cefTRIAXone SODIUM 2,000 MG/70 ML BAG IV STA (19:17)
[2023-03-17 19:35] LABS: Hematocrit (blood only) 42.5 % (37.0-47.0); Hemoglobin 14.8 g/dl (12.0-16.0); Mean Corpuscular Hgb Conc 34.8 g/dL (32.0-36.0); Mean Platelet Volume 9.5 fL (9.4-12.4); Platelet Count 164 K/uL (130-400); RDW Coefficient of Variation 12.5 % (11.5-14.5); RDW Standard Deviation 41.8 fL (36.4-46.3); Red Blood Count 4.62 M/uL (4.20-5.40); White Blood Count 10.55 K/ul (4.8-10.8)
[2023-03-17 19:51] LABS: Alanine Aminotransferase 12 U/L (7-52); Albumin Globulin Ratio 1.4 (0.9-2); Alkaline Phosphatase 94 U/L (34-104); Anion Gap 9 (3-11); Aspartate Aminotransferase 16 U/L (13-39); Bilirubin,Total 0.9 mg/dl (0.2-1.0); Blood Urea Nitrogen 15 mg/dl (6-23); Carbon Dioxide 20 mmol/L (21-32); Chloride 108 mmol/L (98-107); Est GFR (African American) 67.5 ml/min; Est GFR (Non-African American) 58.2 ml/min; Globulin 2.8 gm/dl (2.5-4.0); Glucose 103 mg/dl (70-99(Fasting)); Lipase 43 U/L (11-82); Potassium 2.9 mmol/L (3.5-5.1); Sodium 137 mmol/L (136-145); Total Protein 6.8 gm/dl (6.0-8.3)
[2023-03-17 19:54] LABS: Basophils # (auto) 0.04 K/uL (0-0.2); Basophils % (auto) 0.4 %; Immature Granulocytes # (auto) 0.07 K/uL (0.01-0.20); Immature Granulocytes % (auto) 0.7 %; Lymphocytes # (auto) 0.35 K/uL (1.2-3.4); Lymphocytes % (auto) 3.3 %; Monocytes # (auto) 0.31 K/uL (0.11-0.59); Monocytes % (auto) 2.9 %; Neutrophils # (auto) 9.78 K/uL (1.40-6.50); Neutrophils % (auto) 92.7 %
[2023-03-17] MEDS ORDERED: CEFEPIME 2,000 MG/20 ML VIAL IV STA (20:43)
[2023-03-17] MEDS ORDERED: POTASSIUM CHLORIDE CRTAB 20 MEQ TABCR PO STA (20:45)
[2023-03-17] MEDS ORDERED: ACETAMINOPHEN 1,000 MG/100 ML VIAL IV STA (20:52)
[2023-03-17] MEDS ORDERED: PROMETHAZINE HCL 6.25 MG in SODIUM CHLORIDE 0.9% 50 ML IV PRN (21:08)
[2023-03-17] MEDS ORDERED: ePHEDrine sulfate 50 MG/ML AMP IV PRN (21:08)
[2023-03-17] MEDS ORDERED: ATROPINE SULFATE 0.1 MG/ML 10ML SYR IV PRN (21:08)
[2023-03-17] MEDS ORDERED: fentaNYL citrate PF 100 MCG/2 ML VIAL IV PRN (21:08)
[2023-03-17] MEDS ORDERED: HYDROmorphone INJ 1 MG/ML SYRINGE IV PRN (21:08)
[2023-03-17] MEDS ORDERED: ONDANSETRON INJ 2 MG/ML 2 ML VIAL IV PRN (21:08)
--- NOTE | 2023-03-17 21:08 | Urology Consultation ---
Date of Consultation March 17, 2023 Assessment & Plan (1) Hydronephrosis with renal and ureteral calculus obstruction: Patient is currently being admitted on the hospitalist service We recommend proceeding as follows: Provide analgesics Provide antiemetics Provide IV fluid for hydration supplementing electrolyte deficiencies Broad-spectrum antibiotics in form of cefepime have been initiated in the emergency department. Blood cultures have been sent. Antibiotics should continue we will follow along for the results of her blood cultures as well as previous urine culture that has been sent with antibiotics to be adjusted based on these results Upon presentation to the emergency department this evening patient was noted to be hypotensive with with tachycardia and low-grade fever. Due to these findings the patient is being taken to the operating room emergently this evening by Dr. Yanes for cystoscopy and possible ureteral stent placement. Please refer to Dr. Yanes separate note for detailed description of this procedure Additional recommendations be forthcoming based on operative findings and her clinical course as it unfolds thereafter Supervising Physician Co-Signing Physician Notes Agree with above. Right ureteral stones, concern for sepsis. Tachycardia, febrile, hypotensive, significant elevation of procalcitonin. Plan for emergent OR and cysto/right ureteral stent placement. History of Present Illness Reason for Consultation: Nephrolithiasis with concern for sepsis History of Present Illness This is a 42-year-old female with a known history of nephrolithiasis. The patient has had a CT scan of the abdomen and pelvis most recently on 03/15/2023 where patient was noted to have 2 proximal right ureteral calculi measuring up to a size of 0.5 cm. This was causing moderate hydronephrosis. Patient was seen in the emergency department on this date as she was having right flank pain. Patient notes that she was having nausea and vomiting. At that time she was not having any fevers, shakes, or chills on this states she did have a CBC her white blood cell count was elevated at 12.5. Her hemoglobin and hematocrit along with her platelet count were normal. Her chemistry profile showed sodium and potassium along with her BUN and creatinine were normal. A urinalysis at the state showed turbid urine which was negative for nitrites but did have trace leukocyte Estrace and 5-10 white blood cells per high-power field. She was also noted to have 1+ bacteria on this study. The patient did have a urine culture sent at that time which grew out gram-negative rods. The patient notes that this urine culture was not available at the time she left the emergency department therefore she has not taken any antibiotics. She was discharged from the emergency department with a trial of conservative passage plan. The patient notes that since being discharged from the emergency department she continues to have right flank pain. She also notes fevers as well as shakes and chills. She notes that the right flank pain radiates to the front of her abdomen and she has had associated nausea and vomiting. She denies any dysuria or hematuria. The patient does report previous history of kidney stones where she has had to have procedures performed in the past. Her most recent procedure was noted to be in August 2022 where she underwent a ureteroscopy with laser lithotripsy. Because of her ongoing symptomatology she presented to the emergency department for further evaluation. The patient notes that her most recent solid oral intake was at approximately 7:30 AM this morning. She says that she has been sipping a liquid sport drink intermittently since arrival to the emergency department,. Since arrival to the emergency department the patient has had labs and imaging which I and family reviewed. A KUB performed the emergency department was noted to have an 8 mm right ureteral calcification near the level of L4 which is felt to represent either a single ureteral calculi or 2 adjacent 5 mm calculi. Labs include a CBC her white blood cell count, hemoglobin, hematocrit, and platelet count are within normal range. Chemistry profile showed sodium is 137. Her potassium is low at 2.9. Her BUN and creatinine was 15 and 1.1. Allergies Allergy/AdvReac Type Severity Reaction Status Date / Time bee venom protein (honey bee) Allergy Severe ANAPHYLAXIS Verified 03/16/23 00:04 A CHILD Home Medications Medication Instructions Recorded Confirmed Type cetirizine 10 mg tablet (Zyrtec) 10 mg PO QAM 04/29/18 03/17/23 History ibuprofen 200 mg tablet 200 mg PO Q6H PRN Pain 12/30/19 03/17/23 History ondansetron 4 mg disintegrating 4 mg PO Q6H PRN nausea and 12/31/19 03/17/23 Rx tablet vomiting #20 tabs acetazolamide 500 mg 500 mg PO BID #60 caps 06/26/22 03/17/23 Rx capsule,extended release potassium chloride 20 mEq 60 meq PO BID 08/26/22 03/17/23 History tablet,extended release(part/cryst) (Klor-Con M) Lactobacil.acidophilus-Bifido.animalis 1 cap PO DAILY 03/16/23 03/17/23 History 5 billion cell sprinkle capsule (Probiotic) metoprolol succinate 25 mg 25 mg PO QAM 03/16/23 03/17/23 History tablet,extended release 24 hr oxycodone-acetaminophen 5 mg-325 1 tab PO Q4H PRN pain #14 tabs 03/16/23 03/17/23 Rx mg tablet (Percocet) tamsulosin 0.4 mg capsule (Flomax) 0.4 mg PO DAILY PRN KIDNEY STONES 03/16/23 03/17/23 History Patient History Medical History Calculus of proximal left ureter Essential (primary) hypertension History of COVID-2019>RESOLVED Hydroureteronephrosis Hypokalemia Kidney stone Migraine Morbid obesity with BMI of 45.0-49.9, adult 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 CURRENTLY/PCP MONITORS UTI (urinary tract infection) Surgical History H/O section X 1 History of cholecystectomy History of cystoscopy History of myringotomy S/P ureteral stent placement [place] teeth removed Family History Mother Lung cancer age 42 Father Parkinson disease Other No family history of adverse response to anesthesia Denies family history of Ovarian cancer Prostate cancer Kidney stone Myocardial infarction Breast cancer Colorectal cancer Social History Smoking Status: Never smoker Age Quit Using Tobacco: 26; packs per day: 1; Second Hand Exposure: Yes ( A CHILD); Do You Dip or Chew Tobacco: No; Hx Alcohol Use: Yes Hx Substance Use: No Preferred Language: Ugandan Communication Ability: Effective Visual Impairment: No Limitations Hearing Ability: Normal Football Pad Repairer Required: No Beliefs That Will Affect Care: None marital status: Current Living Situation: Family Current Living Situation Comment: AND SON current occupational status: employed 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[facility] [employer] How many Children do You have: 1 other: 1 son - age 12 Feels Safe at Home: Yes Childhood Exposure to Second-Hand Smoke: Yes Diet: regular Diet Comment: regular caffeine: Yes during the past year weight has: remained stable Dental Care, Regularly: Yes Physical Activity Frequency: Daily Seatbelt Use: sometimes Sunscreen Use: Yes Assistive Devices: Contacts and Glasses Review of Systems Constitutional: + fever and + chills Ear, Nose, Mouth, Throat: no hearing loss Respiratory: no cough and no dyspnea Cardiovascular: no chest pain Gastrointestinal: + abdominal pain (Radiating from right flank), + nausea and + vomiting Genitourinary: as per Subjective / HPI Musculoskeletal: + back pain (Right flank) Integumentary: no rash Neurologic: no localized weakness Physical Exam Constitutional: WD/WN, vitals as above Eyes: no conjunctival abnormality ENMT: Ears: no hearing impairment and no external ear abnormality Mouth: no oropharynx abnormality Neck: trachea midline Respiratory: normal respiratory effort; no respiratory distress and no labored breathing Cardiovascular: Rate/Rhythm: regular rate and regular rhythm Gastrointestinal (Abdomen): Soft and nondistended. Her abdomen is nonrigid. There is no pain with palpation Musculoskeletal: No calf tender Skin: no rashes Neurologic: moves all extremities Psychiatric: A+Ox3, euthymic affect Genitourinary: Marked CVA tenderness noted with percussion on the right-hand side Results & Data Vital Signs (Past 12 Hours) Vital Signs Temp Pulse Pulse Resp BP BP Pulse Ox 03/17/23 19:15 104 H 18 91/64 L 95 03/17/23 17:40 37.8 C H 139 H 20 125/75 97 O2 Del Method 03/17/23 19:15 Room Air 03/17/23 17:40 Room Air PG Care Time/CCT Total # of Minutes Spent Total Time Spent with Patient: Total time spent is greater than 50% in coordination of care (as documented) at patient's floor/unit and/or counseling patient: Coding Level of Care Code 60659 IN/OBS CONSULT LVL 5,80M Diagnoses Hydronephrosis with renal and ureteral calculus obstruction N13.2
--- NOTE | 2023-03-17 21:08 | Anesthesiology Consultation ---
Date of Service March 17, 2023 Assessment & Plan (1) Encounter for pre-operative examination: Chart Review Chart Review: Acceptable Risk for Surgery and Patient NOT seen in Pre Admission Testing Consults Requested none History Surgery Operation Date: 03/17/23 21:00 Proposed Procedures p Cystoscopy Retrograde(Right) - Carlo Yanes MD Height/Weight Height: 5 ft 6 in Allergies Allergy/AdvReac Type Severity Reaction Status Date / Time bee venom protein (honey bee) Allergy Severe ANAPHYLAXIS Verified 03/16/23 00:04 A CHILD Medications Home Medications Medication Instructions Recorded Confirmed Last Taken cetirizine 10 mg tablet (Zyrtec) 10 mg PO QAM 04/29/18 03/17/23 03/15/23 ibuprofen 200 mg tablet 200 mg PO Q6H PRN Pain 12/30/19 03/17/23 03/15/23 ondansetron 4 mg disintegrating 4 mg PO Q6H PRN nausea and 12/31/19 03/17/23 03/15/23 tablet vomiting #20 tabs acetazolamide 500 mg 500 mg PO BID #60 caps 06/26/22 03/17/23 03/15/23 capsule,extended release potassium chloride 20 mEq 60 meq PO BID 08/26/22 03/17/23 03/15/23 tablet,extended release(part/cryst) (Klor-Con M) Lactobacil.acidophilus-Bifido.animalis 1 cap PO DAILY 03/16/23 03/17/23 03/15/23 5 billion cell sprinkle capsule (Probiotic) metoprolol succinate 25 mg 25 mg PO QAM 03/16/23 03/17/23 03/15/23 tablet,extended release 24 hr oxycodone-acetaminophen 5 mg-325 1 tab PO Q4H PRN pain #14 tabs 03/16/23 03/17/23 03/15/23 mg tablet (Percocet) tamsulosin 0.4 mg capsule (Flomax) 0.4 mg PO DAILY PRN KIDNEY STONES 03/16/23 03/17/23 03/15/23 Past Medical History Medical History Calculus of proximal left ureter Essential (primary) hypertension History of ID-2019>RESOLVED Hydroureteronephrosis Hypokalemia Kidney stone Migraine Morbid obesity with BMI of 45.0-49.9, adult 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 CURRENTLY/PCP MONITORS UTI (urinary tract infection) Exercise / Class Metabolic Activity II 4-5 Yardwork/Stairs/Walk up hill Past Family History Family History Mother Lung cancer age 42 Father Parkinson disease Other No family history of adverse response to anesthesia Denies family history of Ovarian cancer Prostate cancer Kidney stone Myocardial infarction Breast cancer Colorectal cancer Past Surgical History Surgical History H/O section X 1 History of cholecystectomy History of cystoscopy History of myringotomy S/P ureteral stent placement [place] teeth removed Past Anesthesia History No Hx of Anesthesia Complications and No Family Hx of Anesthesia Complications Social History Smoking Status: Never smoker tobacco type: cigarettes Do You Dip or Chew Tobacco: No Hx Alcohol Use: Yes alcohol intake frequency: holidays/special occasions only Hx Substance Use: No substance use type: does not use Physical Exam Vital Signs Last Vital Signs Temp 37.8 C H 03/17/23 17:40 Pulse 104 H 03/17/23 19:15 Resp 18 03/17/23 19:15 BP 91/64 L 03/17/23 19:15 Pulse Ox 95 03/17/23 19:15 O2 Del Method Room Air 03/17/23 19:15 Testing Laboratory Results 03/17/23 18:55 03/17/23 18:55
--- NOTE | 2023-03-17 21:13 | History & Physical Report ---
Date of Service March 17, 2023 Assessment & Plan (1) Sepsis: Plan: Secondary to recurrent obstructive uropathy Gram-negative sol bacilli on urine CS from ER visit 2 days ago Hypotension secondary to hypovolemia, sepsis hx pseudotumor cerebri Hypokalemia secondary to emesis, decreased p.o. intake ongoing tobacco abuse PCU given hypotension CS, Cefepime Check lactic acid IVF Urology consult Re: Obstructive uropathy causing sepsis (Patient already seen at the ER by provider, emergent procedure recommended.) Replace electrolytes Nicotine patch as needed DVT prophylaxis. Lovenox subcu Full code Total critical time was 40 minutes. Text document was generated using [employer] voice recognition software. It may contain grammatical or spelling errors. Kindly contact undersigned for clarification of any documentation item in question. History of Present Illness Chief Complaint: Worsening kidney stone pain Primary Care Provider: Fernanda Hill DO History obtained from patient, family, and records. Medical history significant for hypertension, pseudotumor cerebri, recurrent urolithiasis, ongoing tobacco abuse. Last confinement August 2022 for obstructive kidney stone status post stent placement. 3 days ago patient noted achy right flank pain reminiscent of kidney stone. Associated nausea and vomiting symptoms. Patient evaluated at the ER. CT abdomen pelvis showed 2 proximal right ureteral calculi measuring 0.5 cm at L4 causing moderate hydronephrosis. Patient offered hospital admission but preferred to go home. Patient returned to ER with worsening symptoms. Some shortness of breath without chest pain. Some chills at home. Gram-negative sol bacilli growing from urine CS from ER 2 days ago. Patient received phone call from hospital pharmacist about antibiotic recommendations while waiting to be seen by ER provider. Lowest SBP of 90s noted at the ER. Medical History as above Surgical History : section, multiple urologic procedures, cholecystectomy, D&C Family History : Lung cancer, MS, Personal/Social history : 1 pack daily, no EtOH intake, [employer] employee Allergies Allergy/AdvReac Type Severity Reaction Status Date / Time bee venom protein (honey bee) Allergy Severe ANAPHYLAXIS Verified 03/16/23 00:04 A CHILD Home Medications Medication Instructions Recorded Confirmed Type cetirizine 10 mg tablet (Zyrtec) 10 mg PO QAM 04/29/18 03/17/23 History ibuprofen 200 mg tablet 200 mg PO Q6H PRN Pain 12/30/19 03/17/23 History ondansetron 4 mg disintegrating 4 mg PO Q6H PRN nausea and 12/31/19 03/17/23 Rx tablet vomiting #20 tabs acetazolamide 500 mg 500 mg PO BID #60 caps 06/26/22 03/17/23 Rx capsule,extended release potassium chloride 20 mEq 60 meq PO BID 08/26/22 03/17/23 History tablet,extended release(part/cryst) (Klor-Con M) Lactobacil.acidophilus-Bifido.animalis 1 cap PO DAILY 03/16/23 03/17/23 History 5 billion cell sprinkle capsule (Probiotic) metoprolol succinate 25 mg 25 mg PO QAM 03/16/23 03/17/23 History tablet,extended release 24 hr oxycodone-acetaminophen 5 mg-325 1 tab PO Q4H PRN pain #14 tabs 03/16/23 03/17/23 Rx mg tablet (Percocet) tamsulosin 0.4 mg capsule (Flomax) 0.4 mg PO DAILY PRN KIDNEY STONES 03/16/23 03/17/23 History Past Med/Surg History Medical History Calculus of proximal left ureter Essential (primary) hypertension History of 2019>RESOLVED Hydroureteronephrosis Hypokalemia Kidney stone Migraine Morbid obesity with BMI of 45.0-49.9, adult 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 CURRENTLY/PCP MONITORS UTI (urinary tract infection) Surgical History H/O section X 1 History of cholecystectomy History of cystoscopy History of myringotomy S/P ureteral stent placement [place] teeth removed Family History Mother Lung cancer age 42 Father Parkinson disease Other No family history of adverse response to anesthesia Denies family history of Ovarian cancer Prostate cancer Kidney stone Myocardial infarction Breast cancer Colorectal cancer Social History Smoking Status: Never smoker Age Quit Using Tobacco: 26; packs per day: 1; Second Hand Exposure: No; Do You Dip or Chew Tobacco: No; Tobacco Cessation Education Requested by Patient: No Hx Alcohol Use: No Hx Substance Use: No Preferred Language: Burkinan Communication Ability: Effective Visual Impairment: No Limitations Hearing Ability: Normal [employer] Supervisor Required: No Beliefs That Will Affect Care: None marital status: Current Living Situation: Spouse Current Living Situation Comment: AND SON current occupational status: employed 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[employer] [facility] How many Children do You have: 1 Other Information That Helps Us Care for You: No other: 1 son - age 12 Feels Safe at Home: Yes Safety Concerns: Feels Safe At This Time Childhood Exposure to Second-Hand Smoke: Yes Diet: regular Diet Comment: regular caffeine: Yes during the past year weight has: remained stable Dental Care, Regularly: Yes Physical Activity Frequency: Daily Seatbelt Use: sometimes Sunscreen Use: Yes Assistive Devices: Glasses Review of Systems Review of Systems: As per HPI, all other systems reviewed and negative Physical Exam Physical Exam: GENERAL: uncomfortable, obese, no respiratory distress SKIN: Normal color, warm HEENT: Bespectacled, pink palpebral conjunctivae, no ptosis, dry buccal mucosa NECK : Supple, short neck, no tenderness CHEST : CTA, no tenderness HEART : RRR, no obvious murmurs ABDOMEN: Some distention, right-sided abdominal tenderness EXTREMITIES : Minimal LE swelling/tenderness, no other conspicuous deformities noted NEUROLOGIC : Coherent, no facial asymmetry, no other gross focality Results & Data Results & Data Vital Signs (Past 12 Hours) Vital Signs Temp Pulse Pulse Resp BP BP Pulse Ox 03/17/23 19:15 104 H 18 91/64 L 95 03/17/23 17:40 37.8 C H 139 H 20 125/75 97 O2 Del Method 03/17/23 19:15 Room Air 03/17/23 17:40 Room Air Laboratory Results Laboratory Results WBC 10.55 K/ul (4.8-10.8) 03/17/23 18:55 RBC 4.62 M/uL (4.20-5.40) 03/17/23 18:55 Hgb 14.8 g/dl (12.0-16.0) 03/17/23 18:55 Hct 42.5 % (37.0-47.0) 03/17/23 18:55 MCV 92.0 fL (80.0-100.0) 03/17/23 18:55 MCH 32.0 pg (25.0-34.0) 03/17/23 18:55 MCHC 34.8 g/dL (32.0-36.0) 03/17/23 18:55 RDW Std Deviation 41.8 fL (36.4-46.3) 03/17/23 18: RDW Coeff of [place] 12.5 % (11.5-14.5) 03/17/23 18: Plt Count 164 K/uL (130-400) 03/17/23 18:55 MPV 9.5 fL (9.4-12.4) 03/17/23 18:55 Immature Gran % (Auto) 0.7 % 03/17/23 18: Neut % (Auto) 92.7 % 03/17/23 18:55 Lymph % (Auto) 3.3 % 03/17/23 18:55 [place] % (Auto) 2.9 % 03/17/23 18:55 Eos % (Auto) 0.0 % 03/17/23 18:55 Baso % (Auto) 0.4 % 03/17/23 18:55 Neut # (Auto) 9.78 K/uL (1.40-6.50) H 03/17/23 18:55 Lymph # (Auto) 0.35 K/uL (1.2-3.4) L 03/17/23 18:55 [place] # (Auto) 0.31 K/uL (0.11-0.59) 03/17/23 18:55 Eos # (Auto) 0.00 K/uL (0-0.50) 03/17/23 18:55 Baso # (Auto) 0.04 K/uL (0-0.2) 03/17/23 18:55 Immature Gran # (Auto) 0.07 K/uL (0.01-0.20) 03/17/23 18:55 Sodium 137 mmol/L (136-145) 03/17/23 18:55 Potassium 2.9 mmol/L (3.5-5.1) L 03/17/23 18:55 Chloride 108 mmol/L (98-107) H 03/17/23 18:55 Carbon Dioxide 20 mmol/L (21-32) L 03/17/23 18:55 Anion Gap 9 (3-11) 03/17/23 18:55 BUN 15 mg/dl (6-23) 03/17/23 18:55 Creatinine 1.15 mg/dl (0.6-1.2) D 03/17/23 18:55 Est Cr Clr Drug Dosing Not Reportable 03/17/23 18:55 Est GFR ( Amer) 67.5 ml/min 03/17/23 18:55 Est GFR (Non-Af Amer) 58.2 ml/min 03/17/23 18:55 BUN/Creatinine Ratio 13.0 (10-20) 03/17/23 18:55 Glucose 103 mg/dl (70-99(Fasting)) H 03/17/23 18:55 Calcium 9.0 mg/dl (8.6-10.3) 03/17/23 18:55 Total Bilirubin 0.9 mg/dl (0.2-1.0) 03/17/23 18:55 AST 16 U/L (13-39) 03/17/23 18:55 ALT 12 U/L (7-52) 03/17/23 18:55 Alkaline Phosphatase 94 U/L (34-104) 03/17/23 18:55 Total Protein 6.8 gm/dl (6.0-8.3) 03/17/23 18:55 Albumin 4.0 gm/dl (3.4-5.0) 03/17/23 18:55 Globulin 2.8 gm/dl (2.5-4.0) 03/17/23 18:55 Albumin/Globulin Ratio 1.4 (0.9-2) 03/17/23 18:55 Lipase 43 U/L (11-82) 03/17/23 18:55 Procalcitonin 35.51 ng/ml (0-0.5) H 03/17/23 18:55 Impressions KUB X-Ray 03/17/23 17:42 KUB HISTORY: Follow-up study in a patient with right nephrolithiasis. [address] stones on CT COMPARISON: CT 03/16/2023 FINDINGS: Cholecystectomy. Nonobstructive bowel gas pattern. Unchanged positioning of the irregular 8 mm right ureteral calcification(s) at the level of L4. Renal shadows are partially obscured by bowel gas. The patient's bilateral nephrolithiasis are not visualized. No pneumoperitoneum or pneumato sis. No fracture. IMPRESSION: 1.Unchanged positioning of the irregular 8 mm right ureteral calcification(s) at the level of L4. This may represent a single irregular ureteral calculus versus two adjacent calculi measuring up to 5 mm individually. 2. The patient's known bilateral nephrolithiasis are obscured by bowel gas. 3. Cholecystectomy. ACT 112: Negative or not required by law. The above report was generated using voice recognition software. It may contain grammatical, syntax or spelling errors. Electronically signed by: Richard Graf M.D. 03/17/2023 6:09 PM
[2023-03-17] MEDS ORDERED: PROMETHAZINE HCL 12.5 MG in SODIUM CHLORIDE 0.9% 50 ML IV PRN (21:17)
[2023-03-17] MEDS ORDERED: DEXAMETHASONE SOD INJ 4 MG/ML VIAL ONE (21:17)
[2023-03-17] MEDS ORDERED: fentaNYL citrate PF 100 MCG/2 ML VIAL ONE (21:17)
[2023-03-17] MEDS ORDERED: MIDAZOLAM HCL 1 MG/ML 2ML VIAL ONE (21:17)
[2023-03-17] MEDS ORDERED: ONDANSETRON INJ 2 MG/ML 2 ML VIAL ONE (21:17)
[2023-03-17] MEDS ORDERED: GLYCOPYRROLATE 0.2 MG/ML VIAL ONE (21:17)
[2023-03-17] MEDS ORDERED: LORazepam 0.5 MG TAB PO PRN (21:17)
[2023-03-17] MEDS ORDERED: HYDROmorphone INJ 0.5 MG/0.5 ML SYR IV PRN (21:17)
[2023-03-17] MEDS ORDERED: oxyCODONE HCL IR 5 MG TAB (IMMEDIATE RELEASE) PO PRN (21:17)
[2023-03-17] MEDS ORDERED: KETAMINE 50 MG/5 ML SYRINGE ONE (21:18)
[2023-03-17 21:44] LABS: Magnesium 1.6 mg/dl (1.7-2.4)
--- NOTE | 2023-03-17 22:12 | Operative Report ---
PG Post Operative Report Pre & Post Diagnosis Operation Date: 03/17/23 21:00 Pre-Op Diagnosis: Right ureteral stone Post-Op Diagnosis: Right ureteral stone I identified the patient and participated in the time-out.: Yes Procedure Operation Date: 03/17/23 21:00 Actual Procedures p Cystoscopy, right ureteral stent insertion (Right) - Carlo Yanes MD Surgeon Carlo Yanes MD Billet Straightener none Estimated Blood Loss 0 Findings Consistent with Post-Op Diagnosis Specimens none Description of Procedure The patient was identified in the preoperative holding area, appropriate informed consents were reviewed and completed and the patient was transferred to the operative suite. Upon arrival, appropriate antibiotics and anesthesia were administered and the patient was placed in dorsal lithotomy position and prepped and draped in sterile fashion. Begin the case to pass a 22 British cystoscope with 30 degree lens and visual obturator. Inspection revealed a healthy-appearing bladder with ureteral orifices in orthotopic position. I turned my attention to the right UO and cannulated with a sensor wire. Wire advanced the kidney without difficulty. I then proceeded to place a 6 British by 24 cm double-J stent. Of note, there was purulent urine draining from the right kidney. There was good curl seen in the kidney as well as the bladder. I irrigated the bladder and then concluded the case. She was reversed of anesthesia and taken to the recovery room in stable condition. There were no complications. I attest to the content of the Intraoperative Record and any orders documented therein. Any exceptions are noted below.
--- NOTE | 2023-03-17 22:26 | Anesthesiology Progress Note ---
Date of Service March 17, 2023 Anesthesia Post Procedure Vital Signs Vital Signs: Temp Pulse Pulse Pulse Resp BP BP 03/17/23 22:20 95 H 19 116/66 03/17/23 22:13 37.4 C 97 H 19 111/66 03/17/23 21:32 03/17/23 19:15 104 H 18 91/64 L 03/17/23 17:40 37.8 C H 139 H 20 125/75 Pulse Ox O2 Del Method O2 Flow Rate 03/17/23 22:20 97 Oxymask 8 03/17/23 22:13 96 Oxymask 8 03/17/23 21:32 Room Air 03/17/23 19:15 95 Room Air 03/17/23 17:40 97 Room Air Pain Intensity Flank: Pain Intensity: 7 Transfer of Care Handoff Completed per policy Notes Mental Status: alert / awake / arousable and participated in evaluation Patient Amnestic to Procedure: Yes Nausea / Vomiting: adequately controlled Pain: adequately controlled Airway Patency, RR, SpO2: stable & adequate BP & HR: stable & adequate Hydration State: stable & adequate Anesthetic Complications: no major complications apparent and Pt Satisfied with anesthetic care
[2023-03-17 22:35] LABS: Appearance Urine Cloudy (Clear); Bacteria Urine Automated 1+ (Negative); Bilirubin Urine Negative (Negative); Blood Urine 1+ (Negative); Color Urine Yellow; Epithelial Cell Urine Auto >30 /lpf (0-5); Glucose Urine UA Negative (Negative); Ketones Urine Negative (Negative); Leukocyte Esterase Urine 2+ (Negative); Nitrite Urine Positive (Negative); Protein Urine Negative (Negative); RBC Urine Automated 0-4 /hpf (0-4); Specific Gravity Urine 1.013 (1.000-1.030); Urobilinogen Urine Negative (Negative); WBC Urine Automated >30 /hpf (0-5); pH Urine 5.5 (4.5-7.5)
[2023-03-17] MEDS ORDERED: TAMSULOSIN HCL 0.4 MG CAP PO PRN (22:45)
[2023-03-17] MEDS: POTASSIUM CHLORIDE / WTR 10 MEQ/100 ML PLCT IV SCH (23:29)
[2023-03-17] MEDS: MAGNESIUM SULFATE / D5W 1 GM/100 ML BAG IV SCH (23:29)
[2023-03-18] MEDS: POTASSIUM CHLORIDE / WTR 10 MEQ/100 ML PLCT IV SCH ×5 (00:32→04:52)
[2023-03-18] MEDS: MAGNESIUM SULFATE / D5W 1 GM/100 ML BAG IV SCH (01:30)
[2023-03-18] MEDS ORDERED: SODIUM CHLORIDE 0.9% 1000ML 1,000 ML IV ONE (02:07)
[2023-03-18] MEDS: ACETAMINOPHEN 325 MG TAB PO PRN ×2 (04:58→15:56)
[2023-03-18] MEDS ORDERED: CEFEPIME 2,000 MG in SYRINGE 0 ML IV SCH (06:00)
--- NOTE | 2023-03-18 07:17 | XRay Report ---
XR chest 1V portable HISTORY: 42 years-old Female SOB acute shortness of breath COMPARISON: 04/29/2018 TECHNIQUE: AP view of the chest FINDINGS: Cardiac silhouette is enlarged. Mild right hemidiaphragmatic elevation. No pneumothorax, pleural effu richard, airspace consolidation or pulmonary edema. Bones appear grossly intact. IMPRESSION: No acute process. ACT 112: Negative or not required by law. The above report was generated using voice recognition software. It may contain grammatical, syntax o r spelling errors. Electronically signed by: Richard Graf M.D. 03/18/2023 7:16 AM
--- NOTE | 2023-03-18 07:27 | Fluoroscopy Report ---
FL KUB CLINICAL HISTORY: RIGHT STENT IN ORstatus post placement of a right ureteral stent COMPARISON STUDY: CT 03/16/2023 FLUOROSCOPY TIME: 2.8 seconds FLUOROSCOPY IMAGES: 1 EXPOSURE DOSE: 1.49 mGy FINDINGS: Proximal portion of a right ureteral stent appears to be in satisfactory positioning. The d istal portion was not imaged. IMPRESSION: Fluoroscopic assistance as above. ACT 112: Negative or not required by law. Electronically signed by: Richard Graf M.D. 03/18/2023 7:26 AM
[2023-03-18 07:58] LABS: Hematocrit (blood only) 38.3 % (37.0-47.0); Hemoglobin 13.4 g/dl (12.0-16.0); Mean Corpuscular Hemoglobin 31.7 pg (25.0-34.0); Mean Corpuscular Volume 90.5 fL (80.0-100.0); Mean Platelet Volume 9.9 fL (9.4-12.4); Platelet Count 159 K/uL (130-400); RDW Coefficient of Variation 12.7 % (11.5-14.5); RDW Standard Deviation 41.5 fL (36.4-46.3); Red Blood Count 4.23 M/uL (4.20-5.40); White Blood Count 26.59 K/ul (4.8-10.8)
[2023-03-18 08:16] LABS: BUN Creatinine Ratio 18.8 (10-20); Calcium 8.9 mg/dl (8.6-10.3); Creatinine Clr Calc Pharmacy 106.8 ml/min; Est GFR (African American) 97.3 ml/min; Est GFR (Non-African American) 83.9 ml/min; Potassium 4.2 mmol/L (3.5-5.1)
[2023-03-18 08:25] LABS: Basophils # (auto) 0.05 K/uL (0-0.2); Basophils % (auto) 0.2 %; Eosinophils # (auto) 0.31 K/uL (0-0.50); Eosinophils % (auto) 1.2 %; Immature Granulocytes # (auto) 1.27 K/uL (0.01-0.20); Immature Granulocytes % (auto) 4.8 %; Lymphocytes # (auto) 0.87 K/uL (1.2-3.4); Lymphocytes % (auto) 3.3 %; Monocytes # (auto) 1.41 K/uL (0.11-0.59); Monocytes % (auto) 5.3 %; Neutrophils # (auto) 22.68 K/uL (1.40-6.50); Neutrophils % (auto) 85.2 %
[2023-03-18] MEDS: ENOXAPARIN INJ 40 MG/0.4 ML SYR SQ SCH (08:46)
[2023-03-18] MEDS: METOPROLOL SUCC 25MG EXT REL TAB PO SCH (08:47)
[2023-03-18] MEDS: CETIRIZINE HCL 10 MG TABLET PO SCH (08:47)
[2023-03-18] MEDS: acetaZOLAMIDE 500 MG CAPCR PO SCH ×2 (08:47→21:09)
[2023-03-18 09:40] LABS: A calco-baum cmplx NotReported Not Detected (NotDetected); Bact fragilis Not Reported Not Detected (NotDetected); C auris Not Reported Not Detected (NotDetected); CTX-M Resistant Gene Not Detected (NotDetected); Calbicans Not Reported Not Detected (NotDetected); Candida glabrata Not Reported Not Detected (NotDetected); Candida krusei Not Reported Not Detected (NotDetected); Cneoformans/gatti Not Reported Not Detected (NotDetected); Cparapsilosis Not Reported Not Detected (NotDetected); Ctropicalis Not Reported Not Detected (NotDetected); E cloacae compx Not Reported Not Detected (NotDetected); Efaecalis Not Reported Not Detected (NotDetected); Efaecium Not Reported Not Detected (NotDetected); Enterobacterales DETECTED (NotDetected); Enterobacterales Not Reported DETECTED (NotDetected); Escherichia coli Not Reported DETECTED (NotDetected); H influenzae Not Reported Not Detected (NotDetected); IMP Resistant Gene Not Detected (NotDetected); K aerogenes Not Reported Not Detected (NotDetected); KPC Resistant Gene Not Detected (NotDetected); Koxytoca Not Reported Not Detected (NotDetected); Kpneumoniae grp Not Reported Not Detected (NotDetected); Lmonocyt Not Reported Not Detected (NotDetected); N meningitidis Not Reported Not Detected (NotDetected); NDM Resistant Gene Not Detected (NotDetected); OXA 48 Like Resistant Gene Not Detected (NotDetected); P aeruginosa Not Reported Not Detected (NotDetected); Proteus spp Not Reported Not Detected (NotDetected); Salmonella spp Not Reported Not Detected (NotDetected); Smarcescens Not Reported Not Detected (NotDetected); Staph lugdunensis Not Reported Not Detected (NotDetected); Staph spp. Not Reported Not Detected (NotDetected); Staphaureus Not Reported Not Detected (NotDetected); Staphepi Not Reported Not Detected (NotDetected); Stenmaltophilia Not Reported Not Detected (NotDetected); Strep agal(GrpB) Not Reported Not Detected (NotDetected); Strep pneum Not Reported Not Detected (NotDetected); Strep pyog (GrpA) Not Reported Not Detected (NotDetected); Strep spp Not Reported Not Detected (NotDetected); VIM Resistant Gene Not Detected (NotDetected); mcr-1 Colistin Resistant Gene Not Detected (NotDetected)
--- NOTE | 2023-03-18 10:08 | Urology Progress Note ---
Date of Service March 18, 2023 Assessment & Plan (1) Calculus of right ureter: (2) Sepsis: Plan: 42-year-old female admitted with sepsis and obstructing right ureteral calculi. Patient is postop day #1 status post emergent right ureteral stent placement. Afebrile with stable vitals overnight. Subjectively improving today. Labs reviewedcreatinine 0.85, WBC increased to 26.59. Urine and blood cultures are pending. Continue broad-spectrum antibiotics and narrow per sensitivity data when available. Tolerating right ureteral stent with mild bother. Recommend supportive care, antibiotics and medical management per hospital service. Will add prn Pyridium for urinary symptoms/stent management. Will arrange outpatient f/u with our service for definitive stone management. will sign off, contact our service with any additional questions or concerns. Admission and Anticipated Discharge Date Admission Date: March 17, 2023 Subjective Patient seen and examined at bedside, chart reviewed. Subjectively feeling better this morning. Tolerating stent with mild bother. Voiding spontaneously, notes some urgency and dysuria. Hematuria post procedure, clearing this morning. Denies nausea, vomiting, fever or chills. Review of Systems Constitutional: as per Subjective / HPI Gastrointestinal: as per Subjective / HPI Genitourinary: as per Subjective / HPI Physical Exam Physical Exam: General: well-appearing, no acute distress HEENT: Normocephalic, mucous membranes moist Pulmonary: Nonlabored respirations Abdomen: Nondistended Extremities: Moves all 4 spontaneously Neuro: No gross deficits Psych: alert and oriented, normal mood Skin: Warm, dry, no rashes noted Results & Data Vital Signs (Past 12 Hours) Vital Signs Temp Pulse Pulse Resp BP Pulse Ox O2 Del Method 03/18/23 08:00 36.7 C 66 16 121/87 95 Room Air 03/18/23 03:06 36.7 C 74 16 131/69 95 Room Air 03/17/23 22:45 37.1 C 92 H 16 127/84 94 Room Air 03/17/23 22:20 95 H 19 116/66 97 Oxymask 03/17/23 22:30 37.2 C 98 H 15 105/69 93 Room Air 03/17/23 22:13 37.4 C 97 H 19 111/66 96 Oxymask O2 Flow Rate 03/18/23 08:00 08/02/23 03:06 03/17/23 22:45 03/17/23 22:20 8 03/17/23 22:30 03/17/23 22:13 8 PG Care Time/CCT Total # of Minutes Spent Total Time Spent with Patient: Total time spent is greater than 50% in coordination of care (as documented) at patient's floor/unit and/or counseling patient: Coding Level of Care Code 92079 SUB INP/OBS CARE 1/25MIN Diagnoses Calculus of right ureter N20.1 Sepsis A41.9
[2023-03-18] MEDS: PHENAZOPYRIDINE HCL 200 MG TAB PO PRN ×2 (12:51→22:08)
[2023-03-18] MEDS: cefTRIAXone SODIUM 2,000 MG in DEXTROSE 5% 50 ML IV SCH (13:30)
--- NOTE | 2023-03-18 17:13 | Hospitalist Progress Note ---
Date of Service March 18, 2023 Assessment & Plan (1) Sepsis: Plan: Secondary to recurrent obstructive uropathy Gram-negative sol bacilli on urine CS from ER visit 2 days ago Appreciate urology input and recommendation-status post cystoscopy with right ureteral stent placement on 03/17/2023 White count has increased to 26.59 and Blood cultures are growing gram-negative bacilli confirmed E. coli by bio fire Antibiotic has been changed to intravenous ceftriaxone and will continue She has been feeling a little better and will continue intravenous antibiotic Hypotension secondary to hypovolemia, sepsis Received intravenous fluid Blood pressure seems to be stable hx pseudotumor cerebri No acute symptoms Hypokalemia secondary to emesis, decreased p.o. intake Electrolytes supplemented and is normalized Ongoing tobacco abuse Nicotine patch as [facility] Admission and Anticipated Discharge Date Admission Date: March 17, 2023 Subjective 03/18/2023 The patient was seen and examined in telemetry unit She has been feeling better but not yet ready to be discharged No fever but has sweating Right-sided abdominal and back pain has improved Review of Systems Review of Systems: All systems reviewed and are unremarkable except as noted below Physical Exam Physical Exam: Lying in bed comfortably Constitutional: well developed, well nourished, + ill appearing and + obese Eyes: PERRL, conjunctivae normal, anicteric sclerae ENMT: external ear and nose normal, oropharynx normal Neck: trachea midline, no thyromegaly Respiratory: no respiratory distress Auscultation: lungs clear to auscultation bilaterally Cardiovascular: Rate/Rhythm: regular rate and regular rhythm; not tachycardic Heart Sounds: normal S1 and normal S2; no murmur Extremities: + edema (Trace edema bilaterally) Gastrointestinal (Abdomen): Inspection/Auscultation: normal bowel sounds; abdomen not distended Percussion/Palpation: + abdomen tender (Right renal angle is tender), + guarding and abdomen soft Musculoskeletal: No acute arthritis involving any joint Neurologic: normal touch/pain/proprioception and moves all extremities; no focal motor deficits Psychiatric: A+Ox3, euthymic affect Lymphatic: no cervical or axillary lymphadenopathy Results & Data Results & Data Vital Signs (Past 12 Hours) Vital Signs Temp Pulse Resp BP Pulse Ox O2 Del Method 03/18/23 15:55 37.1 C 84 18 127/81 96 Room Air 03/18/23 11:39 36.7 C 70 16 128/87 95 Room Air 03/18/23 08:00 36.7 C 66 16 121/87 95 Room Air Laboratory Results Short CBC 03/17/23 03/18/23 Range/Units 18:55 07:16 WBC 10.55 26.59 H D (4.8-10.8) K/ul Hgb 14.8 13.4 (12.0-16.0) g/dl Hct 42.5 38.3 (37.0-47.0) % Plt Count 164 159 (130-400) K/uL BMP 03/17/23 03/18/23 18:55 07:16 Sodium 137 137 Potassium 2.9 L 4.2 D Chloride 108 H 110 H Carbon Dioxide 20 L 22 BUN 15 16 Creatinine 1.15 D 0.85 D Glucose 103 H 122 H Calcium 9.0 8.9 Liver Function 03/17/23 Range/Units 18:55 Total Bilirubin 0.9 (0.2-1.0) mg/dl AST 16 (13-39) U/L ALT 12 (7-52) U/L Alkaline Phosphatase 94 (34-104) U/L Albumin 4.0 (3.4-5.0) gm/dl Urine 03/17/23 Range/Units 21:00 Urine Color Yellow Urine Appearance Cloudy A (Clear) Urine pH 5.5 (4.5-7.5) Ur Specific [place] 1.013 (1.000-1.030) Urine Protein Negative (Negative) Urine Glucose (UA) Negative (Negative) Medications Administered Current Inpatient Medications Acetaminophen (Acetaminophen 325 Mg Tab) 650 mg PO Q4H PRN PRN Reason: Pain or Fever Stop: 04/16/23 22:44 Last Admin: 03/18/23 15:56 Dose: 650 mg Acetazolamide (Acetazolamide 500 Mg Capcr) 500 mg PO BID [facility] Stop: 04/17/23 08:59 Last Admin: 03/18/23 08:47 Dose: 500 mg Cetirizine HCl (Cetirizine Hcl 10 Mg Tablet) 10 mg PO QAM [facility] Stop: 04/17/23 08:59 Last Admin: 03/18/23 08:47 Dose: 10 mg Enoxaparin Sodium (Enoxaparin Inj 40 Mg/0.4 Ml Syr) 40 mg SQ QAM [facility] Stop: 04/17/23 08:59 Last Admin: 03/18/23 08:46 Dose: 40 mg Hydromorphone HCl (Hydromorphone Inj 0.5 Mg/0.5 Ml Syr) 0.5 mg IV Q3H PRN PRN Reason: Pain Stop: 03/31/23 21:16 Promethazine HCl 12.5 mg/ (Sodium Chloride) 50.5 mls @ 202 mls/hr IV Q6H PRN PRN Reason: Nausea And Vomiting Stop: 04/16/23 21:16 Ceftriaxone Sodium 2,000 mg/ (Dextrose) 70 mls @ 140 mls/hr IV Q24H [facility]; Protocol Stop: 03/28/23 05:59 Last Infusion: 03/18/23 14:04 Dose: Infused Lorazepam (Lorazepam 0.5 Mg Tab) 0.5 mg PO TID PRN PRN Reason: Anxiety Stop: 04/16/23 21:16 Metoprolol Succinate (Metoprolol Succ 25mg Ext Rel Tab) [facility] Stop: 04/17/23 08:59 Last Admin: 03/18/23 08:47 Dose: 25 mg Oxycodone HCl (Oxycodone Hcl Ir 5 Mg Tab (Immediate Release)) 5 - 10 mg PO QID PRN PRN Reason: Pain Stop: 03/31/23 21:16 Phenazopyridine HCl (Phenazopyridine Hcl 200 Mg Tab) 200 mg PO TID PRN PRN Reason: Bladder pain Stop: 04/17/23 10:07 Last Admin: 03/18/23 12:51 Dose: 200 mg Tamsulosin HCl (Tamsulosin Hcl 0.4 Mg Cap) 0.4 mg PO DAILY PRN PRN Reason: KIDNEY STONES Stop: 04/16/23 22:44
[2023-03-19] MEDS: ACETAMINOPHEN 325 MG TAB PO PRN (04:18)
[2023-03-19 06:34] LABS: Basophils # (auto) 0.06 K/uL (0-0.2); Basophils % (auto) 0.3 %; Eosinophils # (auto) 0.06 K/uL (0-0.50); Eosinophils % (auto) 0.3 %; Hematocrit (blood only) 39.5 % (37.0-47.0); Hemoglobin 13.7 g/dl (12.0-16.0); Immature Granulocytes # (auto) 0.17 K/uL (0.01-0.20); Lymphocytes % (auto) 5.1 %; Mean Corpuscular Hemoglobin 31.8 pg (25.0-34.0); Mean Corpuscular Hgb Conc 34.7 g/dL (32.0-36.0); Mean Corpuscular Volume 91.6 fL (80.0-100.0); Mean Platelet Volume 9.9 fL (9.4-12.4); Monocytes # (auto) 0.99 K/uL (0.11-0.59); Monocytes % (auto) 5.6 %; Neutrophils # (auto) 15.53 K/uL (1.40-6.50); Neutrophils % (auto) 87.7 %; Platelet Count 181 K/uL (130-400); RDW Coefficient of Variation 12.9 % (11.5-14.5); RDW Standard Deviation 43.2 fL (36.4-46.3); Red Blood Count 4.31 M/uL (4.20-5.40); White Blood Count 17.71 K/ul (4.8-10.8)
[2023-03-19 06:51] LABS: BUN Creatinine Ratio 19.5 (10-20); Calcium 8.9 mg/dl (8.6-10.3); Creatinine Clr Calc Pharmacy 118.8 ml/min; Est GFR (African American) 109.6 ml/min; Est GFR (Non-African American) 94.6 ml/min; Potassium 3.6 mmol/L (3.5-5.1)
[2023-03-19] MEDS: acetaZOLAMIDE 500 MG CAPCR PO SCH ×2 (08:25→19:57)
[2023-03-19] MEDS: PHENAZOPYRIDINE HCL 200 MG TAB PO PRN ×2 (08:25→19:56)
[2023-03-19] MEDS: CETIRIZINE HCL 10 MG TABLET PO SCH (08:25)
[2023-03-19] MEDS: METOPROLOL SUCC 25MG EXT REL TAB PO SCH (08:26)
[2023-03-19] MEDS: ENOXAPARIN INJ 40 MG/0.4 ML SYR SQ SCH ×2 (08:26→08:27)
[2023-03-19] MEDS ORDERED: IBUPROFEN 600 MG TAB PO PRN ×2 (12:52→14:13)
[2023-03-19] MEDS: cefTRIAXone SODIUM 2,000 MG in DEXTROSE 5% 50 ML IV SCH (13:25)
--- NOTE | 2023-03-19 17:10 | Hospitalist Progress Note ---
Date of Service March 19, 2023 Assessment & Plan (1) Sepsis: Plan: Secondary to recurrent obstructive uropathy Gram-negative osl bacilli on urine CS from ER visit 2 days ago Appreciate urology input and recommendation-status post cystoscopy with right ureteral stent placement on 03/17/2023 White count has increased to 26.59 and Blood cultures are growing gram-negative bacilli confirmed E. coli by bio fire Antibiotic has been changed to intravenous ceftriaxone and will continue She has been feeling a little better and will continue intravenous antibiotic White count is minimally improved but is still having fever with sweating Medically not much better Continue current antibiotic and is advised to drink more fluid Likely discharge tomorrow on IV antibiotic for 14 days in total Hypotension secondary to hypovolemia, sepsis Received intravenous fluid Blood pressure seems to be stable hx pseudotumor cerebri No acute symptoms Hypokalemia secondary to emesis, decreased p.o. intake Electrolytes supplemented and is normalized Ongoing tobacco abuse Nicotine patch as [facility] Admission and Anticipated Discharge Date Admission Date: March 17, 2023 Subjective 03/18/2023 The patient was seen and examined in telemetry unit She has been feeling better but not yet ready to be discharged No fever but has sweating Right-sided abdominal and back pain has improved 03/19/2023 The patient was seen and examined in telemetry unit She has been not feeling well and looks flushed with temperature 37.8 with sweating Back pain has increased nausea but no vomit Will not be discharged today Review of Systems Review of Systems: All systems reviewed and are unremarkable except as noted below Physical Exam Physical Exam: Lying in bed comfortably Constitutional: well developed, well nourished, + ill appearing and + obese Eyes: PERRL, conjunctivae normal, anicteric sclerae ENMT: external ear and nose normal, oropharynx normal Neck: trachea midline, no thyromegaly Respiratory: no respiratory distress Auscultation: lungs clear to auscultation bilaterally Cardiovascular: Rate/Rhythm: regular rate and regular rhythm; not tachycardic Heart Sounds: normal S1 and normal S2; no murmur Extremities: + edema (Trace edema bilaterally) Gastrointestinal (Abdomen): Inspection/Auscultation: normal bowel sounds; abdomen not distended Percussion/Palpation: + abdomen tender (Right renal angle is tender), + guarding and abdomen soft Neurologic: normal touch/pain/proprioception and moves all extremities; no focal motor deficits Psychiatric: A+Ox3, euthymic affect Lymphatic: no cervical or axillary lymphadenopathy Results & Data Results & Data Vital Signs (Past 12 Hours) Vital Signs Temp Pulse Pulse Resp BP Pulse Ox O2 Del Method 03/19/23 15:39 37.0 C 90 16 147/96 H 93 Room Air 03/19/23 11:57 37.2 C 89 16 137/74 96 Room Air 03/19/23 08:48 84 03/19/23 07:59 37.1 C 76 16 106/66 95 Room Air 03/19/23 05:20 37.2 C Laboratory Results Short CBC 03/19/23 Range/Units 05:22 WBC 17.71 H (4.8-10.8) K/ul Hgb 13.7 (12.0-16.0) g/dl Hct 39.5 (37.0-47.0) % Plt Count 181 (130-400) K/uL BMP 03/19/23 05:22 Sodium 137 Potassium 3.6 Chloride 110 H Carbon Dioxide 19 L BUN 15 Creatinine 0.77 Glucose 107 H Calcium 8.9 Medications Administered Current Inpatient Medications Acetaminophen (Acetaminophen 325 Mg Tab) 650 mg PO Q4H PRN PRN Reason: Pain or Fever Stop: 04/16/23 22:44 Last Admin: 03/19/23 04:18 Dose: 650 mg Acetazolamide (Acetazolamide 500 Mg Capcr) 500 mg PO BID [facility] Stop: 04/17/23 08:59 Last Admin: 03/19/23 08:25 Dose: 500 mg Cetirizine HCl (Cetirizine Hcl 10 Mg Tablet) 10 mg PO QAM AUDREY Stop: 04/17/23 08:59 Last Admin: 03/19/23 08:25 Dose: 10 mg Enoxaparin Sodium (Enoxaparin Inj 40 Mg/0.4 Ml Syr) 40 mg SQ QAM AUDREY Stop: 04/17/23 08:59 Last Admin: 03/19/23 08:27 Dose: Not Given Hydromorphone HCl (Hydromorphone Inj 0.5 Mg/0.5 Ml Syr) 0.5 mg IV Q3H PRN PRN Reason: Pain Stop: 03/31/23 21:16 Promethazine HCl 12.5 mg/ (Sodium Chloride) 50.5 mls @ 202 mls/hr IV Q6H PRN PRN Reason: Nausea And Vomiting Stop: 04/16/23 21:16 Last Infusion: 03/18/23 22:24 Dose: Infused Ceftriaxone Sodium 2,000 mg/ (Dextrose) 70 mls @ 140 mls/hr IV Q24H [facility]; Protocol Stop: 03/28/23 05:59 Last Infusion: 03/19/23 13:56 Dose: Infused Ibuprofen (Ibuprofen 600 Mg Tab) 600 mg PO TID PRN PRN Reason: Pain Stop: 04/18/23 14:12 Lorazepam (Lorazepam 0.5 Mg Tab) 0.5 mg PO TID PRN PRN Reason: Anxiety Stop: 04/16/23 21:16 Metoprolol Succinate (Metoprolol Succ 25mg Ext Rel Tab) [facility] [place] Stop: 04/17/23 08:59 Last Admin: 03/19/23 08:26 Dose: 25 mg Oxycodone HCl (Oxycodone Hcl Ir 5 Mg Tab (Immediate Release)) 5 - 10 mg PO QID PRN PRN Reason: Pain Stop: 03/31/23 21:16 Last Admin: 03/18/23 21:09 Dose: 5 mg Phenazopyridine HCl (Phenazopyridine Hcl 200 Mg Tab) 200 mg PO TID PRN PRN Reason: Bladder pain Stop: 04/17/23 10:07 Last Admin: 03/19/23 08:25 Dose: 200 mg Tamsulosin HCl (Tamsulosin Hcl 0.4 Mg Cap) 0.4 mg PO DAILY PRN PRN Reason: KIDNEY STONES Stop: 04/16/23 22:44 Last Admin: 03/19/23 04:17 Dose: 0.4 mg
[2023-03-20 06:27] LABS: Basophils # (auto) 0.06 K/uL (0-0.2); Basophils % (auto) 0.6 %; Eosinophils # (auto) 0.18 K/uL (0-0.50); Eosinophils % (auto) 1.9 %; Hematocrit (blood only) 40.4 % (37.0-47.0); Immature Granulocytes # (auto) 0.13 K/uL (0.01-0.20); Immature Granulocytes % (auto) 1.4 %; Lymphocytes # (auto) 1.09 K/uL (1.2-3.4); Lymphocytes % (auto) 11.5 %; Mean Corpuscular Hemoglobin 31.7 pg (25.0-34.0); Mean Corpuscular Hgb Conc 34.7 g/dL (32.0-36.0); Mean Corpuscular Volume 91.4 fL (80.0-100.0); Mean Platelet Volume 9.6 fL (9.4-12.4); Monocytes # (auto) 0.65 K/uL (0.11-0.59); Monocytes % (auto) 6.9 %; Neutrophils # (auto) 7.33 K/uL (1.40-6.50); Neutrophils % (auto) 77.7 %; Platelet Count 159 K/uL (130-400); RDW Coefficient of Variation 12.6 % (11.5-14.5); RDW Standard Deviation 42.3 fL (36.4-46.3); Red Blood Count 4.42 M/uL (4.20-5.40); White Blood Count 9.44 K/ul (4.8-10.8)
[2023-03-20 06:37] LABS: BUN Creatinine Ratio 18.6 (10-20); Calcium 9.3 mg/dl (8.6-10.3); Creatinine Clr Calc Pharmacy 130.3 ml/min; Est GFR (Non-African American) 106.1 ml/min; Potassium 3.3 mmol/L (3.5-5.1)
[2023-03-20] MEDS ORDERED: POTASSIUM CHLORIDE CRTAB 20 MEQ TABCR PO STA (07:41)
[2023-03-20] MEDS: METOPROLOL SUCC 25MG EXT REL TAB PO SCH (08:18)
[2023-03-20] MEDS: acetaZOLAMIDE 500 MG CAPCR PO SCH (08:18)
[2023-03-20] MEDS: CETIRIZINE HCL 10 MG TABLET PO SCH (08:18)
[2023-03-20] MEDS: ENOXAPARIN INJ 40 MG/0.4 ML SYR SQ SCH (08:18)
[2023-03-20] MEDS: PHENAZOPYRIDINE HCL 200 MG TAB PO PRN (09:41)
--- NOTE | 2023-03-20 11:21 | Hospitalist Progress Note ---
Date of Service March 20, 2023 Assessment & Plan (1) Sepsis: Plan: Secondary to recurrent obstructive uropathy Gram-negative sol bacilli on urine CS from ER visit 2 days ago Appreciate urology input and recommendation-status post cystoscopy with right ureteral stent placement on 03/17/2023 White count has increased to 26.59 and Blood cultures are growing gram-negative bacilli confirmed E. coli by bio fire Antibiotic has been changed to intravenous ceftriaxone and will continue She has been feeling a little better and will continue intravenous antibiotic White count is minimally improved but is still having fever with sweating Medically not much better Continue current antibiotic and is advised to drink more fluid Likely discharge tomorrow on IV antibiotic for 14 days in total Medically stable without any acute symptoms and should be discharged home this a fternoon Ultrasound-guided line is done and she will need to have antibiotic with ceftriaxone 2 g daily for next 10 days clinical nurse manager is following Hypotension secondary to hypovolemia, sepsis Received intravenous fluid Blood pressure seems to be stable hx pseudotumor cerebri No acute symptoms Hypokalemia secondary to emesis, decreased p.o. intake Electrolytes supplemented and is normalized Ongoing tobacco abuse Nicotine patch as needed DVT prophylaxis. Lovenox subcu Full code Discharge home this afternoon Admission and Anticipated Discharge Date Admission Date: March 17, 2023 Subjective 03/18/2023 The patient was seen and examined in telemetry unit She has been feeling better but not yet ready to be discharged No fever but has sweating Right-sided abdominal and back pain has improved 03/19/2023 The patient was seen and examined in telemetry unit She has been not feeling well and looks flushed with temperature 37.8 with sweating Back pain has increased nausea but no vomit Will not be discharged today 03/20/2023 The patient was seen and examined in telemetry unit She has been feeling much better today and denies any significant symptoms Her pain is controlled and does not have any nausea and or vomiting She has been ambulating without any difficulties Review of Systems Review of Systems: All systems reviewed and are unremarkable except as noted below Physical Exam Physical Exam: Lying in bed comfortably Constitutional: well developed, well nourished, + ill appearing and + obese Eyes: PERRL, conjunctivae normal, anicteric sclerae ENMT: external ear and nose normal, oropharynx normal Neck: trachea midline, no thyromegaly Respiratory: no respiratory distress Auscultation: lungs clear to auscultation bilaterally Cardiovascular: Rate/Rhythm: regular rate and regular rhythm; not tachycardic Heart Sounds: normal S1 and normal S2; no murmur Extremities: + edema (Trace edema bilaterally) Gastrointestinal (Abdomen): Inspection/Auscultation: normal bowel sounds; abdomen not distended Percussion/Palpation: + abdomen tender (Right renal angle is tender), + guarding and abdomen soft Neurologic: normal touch/pain/proprioception and moves all extremities; no focal motor deficits Psychiatric: A+Ox3, euthymic affect Lymphatic: no cervical or axillary lymphadenopathy Results & Data Results & Data Vital Signs (Past 12 Hours) Vital Signs Temp Pulse Pulse Resp BP BP Pulse Ox 03/20/23 09:00 89 03/20/23 08:00 03/20/23 07:57 36.6 C 73 17 114/78 93 03/20/23 03:40 36.7 C 68 18 112/66 94 O2 Del Method 03/20/23 09:00 03/20/23 08:00 Room Air 03/20/23 07:57 Room Air 03/20/23 03:40 Room Air Laboratory Results Short CBC 03/20/23 Range/Units 05:55 WBC 9.44 (4.8-10.8) K/ul Hgb 14.0 (12.0-16.0) g/dl Hct 40.4 (37.0-47.0) % Plt Count 159 (130-400) K/uL BMP 03/20/23 05:55 Sodium 137 Potassium 3.3 L Chloride 111 H Carbon Dioxide 18 L BUN 13 Creatinine 0.70 Glucose 98 Calcium 9.3 Medications Administered Current Inpatient Medications Acetaminophen (Acetaminophen 325 Mg Tab) 650 mg PO Q4H PRN PRN Reason: Pain or Fever Stop: 04/16/23 22:44 Last Admin: 03/19/23 04:18 Dose: 650 mg Acetazolamide (Acetazolamide 500 Mg Capcr) 500 mg PO BID [facility] Stop: 04/17/23 08:59 Last Admin: 03/20/23 08:18 Dose: 500 mg Cetirizine HCl (Cetirizine Hcl 10 Mg Tablet) 10 mg PO QAM [facility] Stop: 04/17/23 08:59 Last Admin: 03/20/23 08:18 Dose: 10 mg Enoxaparin Sodium (Enoxaparin Inj 40 Mg/0.4 Ml Syr) 40 mg SQ [facility] Stop: 04/17/23 08:59 Last Admin: 03/20/23 08:18 Dose: Not Given Hydromorphone HCl (Hydromorphone Inj 0.5 Mg/0.5 Ml Syr) 0.5 mg IV Q3H PRN PRN Reason: Pain Stop: 03/31/23 21:16 Promethazine HCl 12.5 mg/ (Sodium Chloride) 50.5 mls @ 202 mls/hr IV Q6H PRN PRN Reason: Nausea And Vomiting Stop: 04/16/23 21:16 Last Infusion: 03/18/23 22:24 Dose: Infused Ceftriaxone Sodium 2,000 mg/ (Dextrose) 70 mls @ 140 mls/hr IV Q24H [facility]; Protocol Stop: 03/28/23 05:59 Last Infusion: 03/19/23 13:56 Dose: Infused Ibuprofen (Ibuprofen 600 Mg Tab) 600 mg PO TID PRN PRN Reason: Pain Stop: 04/18/23 14:12 Last Admin: 03/19/23 22:52 Dose: 600 mg Lorazepam (Lorazepam 0.5 Mg Tab) 0.5 mg PO TID PRN PRN Reason: Anxiety Stop: 04/16/23 21:16 Metoprolol Succinate (Metoprolol Succ 25mg Ext Rel Tab) 25 mg PO [facility] Stop: 04/17/23 08:59 Last Admin: 03/20/23 08:18 Dose: 25 mg Oxycodone HCl (Oxycodone Hcl Ir 5 Mg Tab (Immediate Release)) 5 - 10 mg PO QID PRN PRN Reason: Pain Stop: 03/31/23 21:16 Last Admin: 03/18/23 21:09 Dose: 5 mg Phenazopyridine HCl (Phenazopyridine Hcl 200 Mg Tab) 200 mg PO TID PRN PRN Reason: Bladder pain Stop: 04/17/23 10:07 Last Admin: 03/20/23 09:41 Dose: 200 mg Tamsulosin HCl (Tamsulosin Hcl 0.4 Mg Cap) 0.4 mg PO DAILY PRN PRN Reason: KIDNEY STONES Stop: 04/16/23 22:44 Last Admin: 03/19/23 04:17 Dose: 0.4 mg
[2023-03-20] MEDS: cefTRIAXone SODIUM 2,000 MG in DEXTROSE 5% 50 ML IV SCH (12:04)
--- NOTE | 2023-03-21 07:28 | Discharge Summary ---
Date of Service March 20, 2023 Admission HPI Per Admitting Provider History obtained from patient, family, and records. Medical history significant for hypertension, pseudotumor cerebri, recurrent urolithiasis, ongoing tobacco abuse. Last confinement August 2022 for obstructive kidney stone status post stent placement. 3 days ago patient noted achy right flank pain reminiscent of kidney stone. Associated nausea and vomiting symptoms. Patient evaluated at the ER. CT abdomen pelvis showed 2 proximal right ureteral calculi measuring 0.5 cm at L4 causing moderate hydronephrosis. Patient offered hospital admission but preferred to go home. Patient returned to ER with worsening symptoms. Some shortness of breath without chest pain. Some chills at home. Gram-negative sol bacilli growing from urine CS from ER 2 days ago. Patient received phone call from hospital pharmacist about antibiotic recommendations while waiting to be seen by ER provider. Lowest SBP of 90s noted at the ER. Medical History as above Surgical History : section, multiple urologic procedures, cholecystectomy, D&C Family History : Lung cancer, MS, Personal/Social history : 1 pack daily, no EtOH intake, [employer] employee Admission Exam Per Admitting Provider Physical Exam: GENERAL: uncomfortable, obese, no respiratory distress SKIN: Normal color, warm HEENT: Bespectacled, pink palpebral conjunctivae, no ptosis, dry buccal mucosa NECK : Supple, short neck, no tenderness CHEST : CTA, no tenderness HEART : RRR, no obvious murmurs ABDOMEN: Some distention, right-sided abdominal tenderness EXTREMITIES : Minimal LE swelling/tenderness, no other conspicuous deformities noted NEUROLOGIC : Coherent, no facial asymmetry, no other gross focality Principal Diagnosis Sepsis, E. coli bacteremia with UTI, status post cystoscopy with right ureteral stent placement Discharge Data Allergies Allergy/AdvReac Type Severity Reaction Status Date / Time bee venom protein (honey bee) Allergy Severe ANAPHYLAXIS Verified 03/16/23 00:04 A CHILD Consultations 03/17/23 21:00 Consult Urology Stat 03/17/23 21:01 ED Decision to Admit Stat Procedures Performed Operation Date: 03/17/23 21:00 Actual Procedures p Cystoscopy, right ureteral stent insertion (Right) - Carlo Yanes MD Ordered Studies 03/17/23 21:00 FL KUB Routine Hospital Course (1) Sepsis: Secondary to recurrent obstructive uropathy Gram-negative sol bacilli on urine CS from ER visit 2 days ago Appreciate urology input and recommendation-status post cystoscopy with right ureteral stent placement on 03/17/2023 White count has increased to 26.59 and Blood cultures are growing gram-negative bacilli confirmed E. coli by bio fire Antibiotic has been changed to intravenous ceftriaxone and will continue She has been feeling a little better and will continue intravenous antibiotic White count is minimally improved but is still having fever with sweating Medically not much better Continue current antibiotic and is advised to drink more fluid Likely discharge tomorrow on IV antibiotic for 14 days in total Medically stable without any acute symptoms and should be discharged home this afternoon Ultrasound-guided line is done and she will need to have antibiotic with ceftriaxone 2 g daily for next 10 days personalized living manager is following Hypotension secondary to hypovolemia, sepsis Received intravenous fluid Blood pressure seems to be stable hx pseudotumor cerebri No acute symptoms Hypokalemia secondary to emesis, decreased p.o. intake Electrolytes supplemented and is normalized Ongoing tobacco abuse Nicotine patch as needed DVT prophylaxis. Lovenox subcu Full code Discharge home this afternoon Total Time Total Time Spent Total Time Spent (In Minutes): 35 minutes Discharge Plan Discharge Items Patient Disposition: Home - Home Health Services Reason For Visit: SEPSIS, HYPOTENSION Discharge Diagnosis: Sepsis, E. coli bacteremia with UTI, status post cystoscopy with right ureteral stent placement Condition on Discharge: Good Activity: Resume your previous activity Non-emergency contact: Primary Care Provider Call non-emergency contact if: you have any medication questions and your symptoms worsen Follow-up/Referrals: Fernanda Hill DO [Primary Care Provider] - (Date & Time 03/24/2023 9:20 AM Provider DONNA Christy Department Family Practice [facility] ) Diet: Regular Addtl Attending Provider Instructions: Please take precautions to avoid fall Finish the course of antibiotic Drink plenty of fluid Please keep appointments with your healthcare providers Pending Studies at Discharge: No Stand-Alone Forms: [employer], Work/School Release, Smoking Cessation Medications and DC Order Prescriptions: New phenazopyridine [Pyridium] 200 mg Tablet 200 mg PO TID PRN (Reason: dysuria) Qty: 7 0RF Continued acetazolamide 500 mg capsule, extended release 500 mg PO BID Qty: 60 1RF cetirizine [Zyrtec] 10 mg Tablet 10 mg PO QAM ibuprofen 200 mg Tablet 200 mg PO Q6H PRN (Reason: Pain) ondansetron 4 mg tablet,disintegrating 4 mg PO Q6H PRN (Reason: nausea and vomiting) Qty: 20 0RF potassium chloride [Klor-Con M20] 20 mEq tablet,ER particles/crystals 60 meq PO BID metoprolol succinate 25 mg tablet extended release 24 hr 25 mg PO QAM Probiotic 5 billion cell Capsule, Sprinkle 1 cap PO DAILY tamsulosin [Flomax] 0.4 mg capsule 0.4 mg PO DAILY PRN (Reason: KIDNEY STONES) oxycodone-acetaminophen [Percocet] 5-325 mg tablet 1 tab PO Q4H PRN (Reason: pain) Qty: 14 0RF Discharge Orders: Discharge Order (Routine); Ordered 03/20/23 Ordered By: Con Hebert Admission Data Admit Date/Time: 03/17/23 21:34 Attending Provider: Con Hebert Admit Provider: Cosmo Ricardo Primary Care Provider: Fernanda Hill Other Providers: Carlo Yanes ; Cosmo Ricardo Other Interventions: Discharge Summary Assessment (RN) Last Done: 03/20/23 12:44 Supervising Physician Co-Signing Physician Notes Agree with above. Right ureteral stones, concern for sepsis. Tachycardia, febrile, hypotensive, significant elevation of procalcitonin. Plan for emergent OR and cysto/right ureteral stent placement.
== END 2023-03-20 13:06 | disposition home health service (06) | DRG 854 ==
LOC: ED 16:49 → OR 21:33 → 4W 21:34 → OR 21:36